=== PATIENT | male | born 1970 | race Caucasian/White ===

== ENCOUNTER → 2018-04-05 | Outpatient (CLI) | payer BC ==
--- NOTE | 2018-04-05 08:43 | CT ---
EXAMINATION TYPE: CT soft tissue neck w con DATE OF EXAM: 04/05/2018 COMPARISON: HISTORY: Lump in neck, right side CT DLP: 596.8 mGycm CONTRAST: CT scan of the neck is performed with IV Contrast, patient injected with 100 mL of Isovue 300. Contrast enhanced CT of the neck was performed from the skull base through the lung apices. AIRWAY: Lobulated soft tissue mass which extends from the base of the tongue to the right of midline and extends to the tip of the epiglottis. Site of origin is difficult to elucidate. Mass measures 3.8 x 2.4 x 2.8 cm. Tissue diagnosis is recommended to exclude malignancy. No additional masses identifi ed of the airway. SALIVARY GLANDS: The submandibular and parotid glands are free of mass or inflammatory process. THYROID GLAND: No nodules or masses seen. LYMPH NODES: Right sided internal jugular chain adenopathy measuring 5.0 x 2.9 x 2.2 cm. Right-sided posterior triangle adenopathy measuring 1.2 cm. LUNG APICES: No nodule or mass is seen. OTHER: Vascular structures are patent. No significant degenerative change of the cervical spine. N o abscess seen. IMPRESSION: 1.Lobulated soft tissue mass which extends from the base of the tongue to the right of midline and ex tends to the tip of the epiglottis. Site of origin is difficult to elucidate. Tissue diagnosis is rec ommended to exclude malignancy. Associated adenopathy as discussed.
--- NOTE | 2018-04-05 09:40 | FL ---
"EXAMINATION TYPE: FL barium swallow DATE OF EXAM: 04/05/2018 CLINICAL HISTORY: Dysphagia over the last year, palpable lump right neck over last 2-3 months. TECHNIQUE: A double contrast esophagram is performed utilizing air and barium. A total of 29 second s of fluoroscopic time was utilized during procedure. 56 spot images are saved during procedure. COMPARISON: Same day CT neck study performed earlier today. FINDINGS: Corresponding to CT there is large mucosal mass filling the vallecula affecting swallows bu t not causing obstruction at roughly C3-C4 level. No suspicious stricture or diverticulum is present. No hiatal hernia is seen. Mucosal lesion superior to the pyriform sinuses confirmed on 2 views. No g astroesophageal reflux is evident. IMPRESSION: Large hypopharyngeal mass filling posterior aspect of the valleculae on top of epiglottis . Correlating with CT there is adjacent right neck adenopathy. Primary throat cancer strongly suspec samy. Advise ENT referral. A Yellow level critical message alert has been initiated for Raysa Pineda MD via the [employer] 0 | Critical Results System on 04/05/2018 9:37 AM. This message alert has been sent to Raysa Pineda MD via the preferences provided by the clinician for the receipt of Radiology Critical Findings. Ms ssage ID [id number]."
== END ==
LOC: RADCTMAIN 07:29
PROVIDERS: ATTEND Internal Medicine
DX: R22.1 Localized swelling, mass and lump, neck (principal); R59.0 Localized enlarged lymph nodes; K92.89 Other specified diseases of the digestive system
CPT/HCPCS: 74220; 70491; Q9967

== ENCOUNTER → 2018-05-13 | Outpatient (CLI) | payer BC ==
--- NOTE | 2018-05-13 18:28 | PE ---
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 TECHNIQUE: Following the intravenous administration of 14.822 mCi of F-18 FDG, whole body images are performed from the skull base to the midthigh. Images are reviewed on the computer in the coronal, axial, and sagittal planes. Reconstructed rotating images are created on independent workstation and reviewed on the computer. A noncontrast CT is performed in conjunction with the PET scan. Dedicate d head and neck PET/CT imaging is also performed. SCAN: Initial Scan FINDINGS: SKULL BASE AND NECK: Corresponding to recent CT there is heterogeneous right vallecular mass measuri ng 2.9 x 2.8 cm on axial image 51 with hypermetabolic uptake, max SUV is 10.57. There is persistent heterogeneous abnormal right submandibular lymph node causing anterior deviation of right submandibular gland extending inferiorly to level of the inferior aspect of hyoid bone measu ring 3.4 x 3.4 cm axial image 52 with max SUV of 12.14. There is additional suspicious right posterio r cervical triangle 1.6 x 1.2 cm lymph node axial image 53 with max SUV 6.65. No suspicious hypermetabolic left-sided adenopathy is seen. CHEST, MEDIASTINUM, AND HILAR REGION: There is interval placement of tracheostomy tube mild surroundi ng uptake presumed related to recent surgical procedure. No suspicious hypermetabolic uptake in the t horax is present. ABDOMEN AND PELVIS: No suspicious hypermetabolic uptake in the abdomen or pelvis is seen. OSSEOUS STRUCTURES: No suspicious hypermetabolic uptake is seen. OTHER CT: Right-sided pelvic phleboliths incidentally noted. Mild facet arthropathy lower lumbar spin e is seen. A 1.0 cm low dense lesion inferior right hepatic lobe axial image 140 favors simple thin-w alled cyst. IMPRESSION: Malignant neoplasm slight right aspect of vallecula with right neck adenopathy redemonstr ated. No distal metastatic disease to the thorax abdomen or pelvis is identified.
== END | disposition home or self-care (01) ==
LOC: RADPETMAIN 15:28
PROVIDERS: ATTEND Radiology Radiation Oncology
DX: C10.0 Malignant neoplasm of vallecula (principal); C09.0 Malignant neoplasm of tonsillar fossa; R59.0 Localized enlarged lymph nodes
CPT/HCPCS: 78815; A9552

== ENCOUNTER 2018-07-16 14:07 | Inpatient (IN) | payer BC ==
[2018-07-16] MEDS ORDERED: LIDOCAINE VISCOUS 2% 15 ML CUP MUCOUS MEM ONE (14:41)
[2018-07-16] MEDS ORDERED: SODIUM CHLORIDE 0.9% 1,000 ML IV ONE ×2 (14:42)
--- NOTE | 2018-07-16 14:44 | ED ---
General Adult HPI - General Chief complaint: Recheck/Abnormal Lab/Rx Stated complaint: Dehydrated Time Seen by Provider: 07/16/18 14:21 Source: patient, RN notes reviewed, old records reviewed Mode of arrival: ambulatory Limitations: no limitations - History of Present Illness Initial comments: 47-year-old male history of head and neck cancer presenting for evaluation of dehydration and pain with swallowing. Patient is status post chemoradiation, most recent chemotherapy was 9 days ago. He states that he had elevated temperature at home and 100.2. This was the highest temperature reported. Patient denies cough or dyspnea. Denies abdominal pain nausea vomiting or diarrhea. Denies dysuria. States he is not vomiting but has significant pain with swallowing. His been unable to tolerate significant amount of oral hydration. Patient's oncologist did call ahead to indicate that the patient likely needed some IV hydration. - Related Data Home Medications Medication Instructions Recorded Confirmed No Known Home Medications 07/16/18 07/16/18 Allergies Allergy/AdvReac Type Severity Reaction Status Date / Time No Known Allergies Allergy Verified 07/16/18 15:21 Review of Systems ROS Statement: Those systems with pertinent positive or pertinent negative responses have been documented in the HPI. ROS Other: All systems not noted in ROS Statement are negative. 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 Absent: tenderness, meningismus Respiratory exam: Present: normal lung sounds bilaterally. Absent: respiratory distress, wheezes, rhonchi Cardiovascular Exam: Present: regular rate, normal rhythm GI/Abdominal exam: Present: soft. Absent: distended, tenderness, guarding Extremities exam: Present: normal inspection, normal capillary refill. Absent: pedal edema Neurological exam: Present: alert, oriented X3, CN II-XII intact. Absent: motor sensory deficit Psychiatric exam: Present: normal affect, normal mood Skin exam: Present: warm, dry, intact Course Vital Signs 07/16/18 14:19 Temperature 98.7 F Pulse Rate 85 Respiratory 18 Rate Blood Pressure 96/66 O2 Sat by Pulse 97 Oximetry Medical Decision Making - Medical Decision Making Patient presenting with dehydration, pain with swallowing, history of head and neck cancer status post chemo and radiation. Patient's is found to be pancytopenic, anemic hemoglobin 10.5, thrombocytopenic, white count is 1.0, absolute neutrophil count is pending. Patient does report fever, 100.2. Urinalysis is pending, patient has been unable to give a urinalysis. Blood culture pending. Chest x-ray negative for focal pneumonia. Patient is started on cefepime and vancomycin, neutropenic fever. He will be admitted awaiting culture results. Case discussed with patient's oncologist Dr. Stoll, and admitting physician Dr. Burris. - Lab Data Result diagrams: 07/16/18 14:15 07/16/18 14:15 Lab Results 07/16/18 07/16/18 07/16/18 Range/Units 14:15 14:15 16:00 WBC 1.0 L* (3.8-10.6) k/uL RBC 3.32 L (4.30-5.90) m/uL Hgb 10.5 L (13.0-17.5) gm/dL Hct 27.7 L (39.0-53.0) % MCV 83.4 (80.0-100.0) fL MCH 31.7 (25.0-35.0) pg MCHC 38.0 H (31.0-37.0) g/dL RDW 22.0 H (11.5-15.5) % Plt Count 59 L (150-450) k/uL Differential Comment Manual Slide Review Performed Hyperchromasia Slight Poikilocytosis Moderate Anisocytosis Moderate Microcytosis Slight Sodium 140 (137-145) mmol/L Potassium 4.4 (3.5-5.1) mmol/L Chloride 105 (98-107) mmol/L Carbon Dioxide 21 L (22-30) mmol/L Anion Gap 14 mmol/L BUN 32 H (9-20) mg/dL Creatinine 0.84 (0.66-1.25) mg/dL Est GFR (CKD-EPI)AfAm >90 (>60 ml/min/1.73 sqM) Est GFR (CKD-EPI)NonAf >90 (>60 ml/min/1.73 sqM) Glucose 93 (74-99) mg/dL Plasma Lactic Acid Jaylen 0.7 (0.7-2.0) mmol/L Calcium 8.9 (8.4-10.2) mg/dL Total Bilirubin 1.2 (0.2-1.3) mg/dL AST 16 L (17-59) U/L ALT 25 (21-72) U/L Alkaline Phosphatase 70 (38-126) U/L Total Protein 6.1 L (6.3-8.2) g/dL Albumin 3.5 (3.5-5.0) g/dL Influenza Type A RNA (Not Detectd) Influenza Type B (PCR) (Not Detectd) 07/16/18 Range/Units 16:04 WBC (3.8-10.6) k/uL RBC (4.30-5.90) m/uL Hgb (13.0-17.5) gm/dL Hct (39.0-53.0) % MCV (80.0-100.0) fL MCH (25.0-35.0) pg MCHC (31.0-37.0) g/dL RDW (11.5-15.5) % Plt Count (150-450) k/uL Differential Comment Manual Slide Review Hyperchromasia Poikilocytosis Anisocytosis Microcytosis Sodium (137-145) mmol/L Potassium (3.5-5.1) mmol/L Chloride (98-107) mmol/L Carbon Dioxide (22-30) mmol/L Anion Gap mmol/L BUN (9-20) mg/dL Creatinine (0.66-1.25) mg/dL Est GFR (CKD-EPI)AfAm (>60 ml/min/1.73 sqM) Est GFR (CKD-EPI)NonAf (>60 ml/min/1.73 sqM) Glucose (74-99) mg/dL Plasma Lactic Acid Jaylen (0.7-2.0) mmol/L Calcium (8.4-10.2) mg/dL Total Bilirubin (0.2-1.3) mg/dL AST (17-59) U/L ALT (21-72) U/L Alkaline Phosphatase (38-126) U/L Total Protein (6.3-8.2) g/dL Albumin (3.5-5.0) g/dL Influenza Type A RNA Not Detected (Not Detectd) Influenza Type B (PCR) Not Detected (Not Detectd) Disposition Clinical Impression: Neutropenic fever, Dehydration Disposition: ADMITTED IP TO THIS [facility] Condition: Stable Is patient prescribed a controlled substance at d/c from ED?: No Referrals: Kalyan Kim MD [Primary Care Provider] - 1-2 days Decision to Admit Reason: Admit from EC Decision Date: 07/16/18 Decision Time: 16:56
[2018-07-16 15:23] LABS: Anisocytosis Moderate; HCT 27.7 % (39.0-53.0); HGB 10.5 gm/dL (13.0-17.5); Hyperchromasia Slight; MCH 31.7 pg (25.0-35.0); MCV 83.4 fL (80.0-100.0); Mean Platelet Volume 10.2; Microcytosis Slight; Poikilocytosis Moderate; RBC 3.32 m/uL (4.30-5.90)
[2018-07-16 15:26] LABS: Platelet Count 59 k/uL (150-450)
[2018-07-16 15:28] LABS: ALT 25 U/L (21-72); AST 16 U/L (17-59); Albumin 3.5 g/dL (3.5-5.0); Alkaline Phosphatase 70 U/L (38-126); Anion Gap 14 mmol/L; Blood Urea Nitrogen 32 mg/dL (9-20); Calcium 8.9 mg/dL (8.4-10.2); Carbon Dioxide 21 mmol/L (22-30); Chloride 105 mmol/L (98-107); Glucose 93 mg/dL (74-99); Potassium 4.4 mmol/L (3.5-5.1); Sodium 140 mmol/L (137-145); Total Bilirubin 1.2 mg/dL (0.2-1.3); Total Protein 6.1 g/dL (6.3-8.2)
[2018-07-16] MEDS ORDERED: VANCOMYCIN IV PER PHARMACY 1 EACH MISC MISCELLANE PRN (15:58)
[2018-07-16] MEDS ORDERED: CEFEPIME 2 GM in SODIUM CHLORIDE 0.9% 100 ML IVPB STA (16:00)
--- NOTE | 2018-07-16 16:00 | XR ---
EXAMINATION TYPE: XR chest 2V DATE OF EXAM: 07/16/2018 COMPARISON: NONE HISTORY: Fever TECHNIQUE: Frontal and lateral views of the chest are obtained. FINDINGS: There is no focal air space opacity, pleural effusion, or pneumothorax seen. The cardiac silhouette size is within normal limits. The osseous structures are intact. Tracheostomy tube is wi thin the trachea. IMPRESSION: No acute cardiopulmonary process.
[2018-07-16] MEDS ORDERED: VANCOMYCIN 1,750 MG in SODIUM CHLORIDE 0.9% 500 ML 500 ML IVPB ONE (16:30)
[2018-07-16] MEDS ORDERED: NALOXONE 0.4 MG/ML 1 ML VIAL IV PRN (16:51)
[2018-07-16] MEDS ORDERED: ONDANSETRON 4 MG/2 ML VIAL IVP PRN (16:51)
[2018-07-16] MEDS ORDERED: ACETAMINOPHEN TAB 325 MG TAB PO PRN (16:51)
[2018-07-16] MEDS: SODIUM CHLORIDE 0.9% 1,000 ML IV SCH (17:10)
[2018-07-16] MEDS: HYDROmorphone 0.5 MG/0.5 ML SYRINGE IVP PRN ×2 (18:23→21:27)
[2018-07-16] MEDS: FILGRASTIM-SNDZ 480 MCG/0.8 ML SYRINGE SQ SCH (22:40)
[2018-07-16] MEDS: MAG HYDROX/AL HYDROX/SIMETH 30 ML, LIDOCAINE VISCOUS 30 ML, diphenhydrAMINE ELIXIR 75 M... PO SCH ×4 (23:00)
[2018-07-16 23:44] LABS: Appearance,Urine Clear (Clear); Bilirubin,Urine Negative (Negative); Blood,Urine Negative (Negative); Color,Urine Yellow; Glucose,Urine (UA) Negative (Negative); Ketones,Urine 4+ (Negative); Leukocyte Esterase,Urine Negative (Negative); Nitrite,Urine Negative (Negative); PH, Urine 5.5 (5.0-8.0); Protein,Urine Trace (Negative); Specific Gravity,Urine 1.027 (1.001-1.035); Urobilinogen,Urine <2.0 mg/dL (<2.0)
[2018-07-17] MEDS: CEFEPIME 2 GM in SODIUM CHLORIDE 0.9% 100 ML IVPB SCH ×3 (00:24→15:59)
[2018-07-17] MEDS: HYDROmorphone 0.5 MG/0.5 ML SYRINGE IVP PRN ×8 (00:24→21:42)
[2018-07-17] MEDS: VANCOMYCIN 1,500 MG in SODIUM CHLORIDE 0.9% 250 ML IVPB SCH ×3 (02:49→18:51)
[2018-07-17] MEDS: SODIUM CHLORIDE 0.9% 1,000 ML IV SCH ×2 (07:53→17:06)
[2018-07-17] MEDS: MAG HYDROX/AL HYDROX/SIMETH 30 ML, LIDOCAINE VISCOUS 30 ML, diphenhydrAMINE ELIXIR 75 M... PO SCH ×13 (10:28→21:43)
--- NOTE | 2018-07-17 13:45 | P.HPIM ---
History of Present Illness H&P Date: 07/17/18 Chief Complaint: fever 1 day, chemotherapy This is a pleasant 47-year-old gentleman patient of Dr. 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 Stoll. He didn't have any tongue resection for this. however he underwent cisplatin started May 25, and has completed chemotherapy. He goes every , his last chemotherapy was 06/28/2018. He currently is on radiation treatment, with Dr. Zamora, last treatment was 06/11/2018. His initial tongue cancer was also noted to be positive in the lymph node based on CT, he comes in now with fever for one day 100.2 in er, cough of one day, the patient has a trach collar that is not blistered and does not have any new rashes, no recent foreign travels, no sick contacts at home. he denies any GI complaints he was last seen in the office 08/02/2017, diagnosed to have BPH without lower tract symptomatology, hyper tension, hyperlipidemia, patient is not on any home medications. He does have mucus production trace trach collar and some cough, clear white sputum. Emergency room laboratory showed WBC count of 1.0, platelet count of 59, creatinine of 0.84, normal liver function tests, albumin and protein is a little bit on the lower side, lactic acid off 0.7, urinalysis normal except for ketones, and dehydration. influenza test was negative chest x-ray shows no acute pulmonary disease no active infiltrates, patient was admitted for neutropenic fever with WBC count of 1.0, no absolute neutrophil count for review, consult was made with Dr. Stoll, and Dr. Quezada for pancytopenia with neutropenic fever, main source unknown, most likely respiratory tract, we're going to obtain sputum cultures from the aspirate to deep suctioning, he started on vancomycin and cefepime. Inspection of the skin fails to reveal any rashes or open sores including the neck collar Review of Systems Constitutional: Reports as per HPI, Reports anorexia, Reports chills, Reports fever, Reports lethargy, Reports weight loss, Denies chronic headaches, Denies chronic pain, Denies daytime sleepiness, Denies fatigue, Denies malaise, Denies night sweats, Denies poor appetite, Denies sweats, Denies weakness, Denies weight gain Eyes: bilateral as per HPI Ears, nose, mouth and throat: Reports as per HPI, Denies ant. neck pain, Denies bleeding gums, Denies dental pain, Denies dysphagia, Denies epistaxis, Denies headache, Denies hoarseness, Denies mouth pain, Denies nasal congestion, Denies nasal discharge, Denies neck fullness/pressure, Denies neck lump, Denies nose pain, Denies odynophagia, Denies post-nasal drip, Denies sinus pain, Denies sinus pressure, Denies swelling in mouth, Denies swelling in throat, Denies sore throat, Denies vertigo Cardiovascular: Reports as per HPI, Denies chest pain, Denies claudication, Denies decreased exercise tolerance, Denies dyspnea on exertion, Denies edema, Denies high blood pressure, Denies irregular heart beat, Denies leg edema, Denies lightheadedness, Denies orthopnea, Denies palpitations, Denies paroxysmal nocturnal dyspnea, Denies phlebitis, Denies rapid heart beat, Denies shortness of breath, Denies syncope Respiratory: Reports cough, Reports cough with sputum, Denies as per HPI, Denies congestion, Denies dyspnea, Denies excessive sputum, Denies hemoptysis, Denies home oxygen, Denies pain, Denies pain on inspiration, Denies pleurisy, Denies respiratory infections, Denies sleep apnea, Denies snoring, Denies wheezing Gastrointestinal: Denies as per HPI, Denies abdominal pain, Denies belching, Denies bloating, Denies BRBPR, Denies change in bowel habits, Denies coffee ground emesis, Denies constipation, Denies diarrhea, Denies dyspepsia, Denies early satiety, Denies heartburn, Denies hematemesis, Denies hematochezia, Denies indigestion, Denies jaundice, Denies loss of appetite, Denies melena, Denies nausea, Denies vomiting Genitourinary: Reports as per HPI, Reports decreased libido, Reports erectile dysfunction, Reports polyuria, Reports testicular lump, Denies discharge, Denies dysuria, Denies flank pain Musculoskeletal: Denies atrophy, Denies fractures, Denies frequent falls, Denies muscle cramps, Denies muscle weakness, Denies neck stiffness Integumentary: Denies foot/leg ulcers, Denies rash, Denies sores, Denies unusual bruising, Denies wounds Neurological: Denies change in mentation, Denies gait dysfunction, Denies headaches, Denies loss of vision, Denies syncope, Denies weakness Psychiatric: Denies change in appetite, Denies confusion, Denies disorientation, Denies hypersomnia, Denies insomnia, Denies irritability, Denies sleep disturbances Endocrine: Denies cold intolerance, Denies excessive sweating, Denies fatigue, Denies flushing, Denies heat intolerance, Denies recent glucocorticoid use, Denies weight change Hematologic/Lymphatic: Reports as per HPI, Denies easy bleeding, Denies easy bruising, Denies lymphadenopathy, Denies lymphedema, Denies thrombophilia Allergic/Immunologic: Denies as per HPI, Denies allergic rhinitis, Denies anaphylaxis, Denies angioedema, Denies gluten intolerance, Denies persistent infections, Denies seasonal allergies, Denies urticaria, Denies wheezing Past Medical History Past Medical History: Cancer, Hyperlipidemia, Hypertension, Prostate Disorder Additional Past Medical History / Comment(s): squamous cell carcinoma base of tongue dx 06/22/18- last chemo 07-12-18, patient has trach that was placed 04-25-18 History of Any Multi-Drug Resistant Organisms: None Reported Additional Past Surgical History / Comment(s): tracheostomy Past Psychological History: No Psychological Hx Reported Smoking Status: Former smoker Past Alcohol Use History: Rare Past Drug Use History: None Reported - Past Family History Mother Family Medical History: Cancer (breast) Father Family Medical History: No Reported History Brother(s) Family Medical History: No Reported History Sister(s) Family Medical History: Cancer (Melanoma) Daughter(s) Family Medical History: No Reported History Son(s) Family Medical History: No Reported History Medications and Allergies Home Medications Medication Instructions Recorded Confirmed Type No Known Home Medications 07/16/18 07/16/18 History Allergies Allergy/AdvReac Type Severity Reaction Status Date / Time No Known Allergies Allergy Verified 07/16/18 15:21 Physical Exam Vitals: Vital Signs Temp Pulse Pulse Resp BP BP Pulse Ox 07/17/18 12:12 100 F H 106 H 17 117/70 95 07/17/18 06:08 99.3 F 108 H 16 115/71 92 L 07/16/18 21:36 98.9 F 81 16 123/78 98 07/16/18 20:41 97 07/16/18 17:53 98.2 F 95 16 124/80 100 07/16/18 17:11 86 20 121/70 100 07/16/18 14:19 98.7 F 85 18 96/66 97 Intake and Output 07/16/18 07/17/18 07/17/18 22:59 06:59 14:59 Intake Total 900 Output Total 600 600 Balance -600 -600 900 Intake: Intake, IV Titration 900 Amount Cefepime 2 gm In Sodium 100 Chloride 0.9% 100 ml @ 200 mls/hr IVPB Q8HR ANA MARIA Rx#:[id number] Sodium Chloride 0.9% 1, 550 000 ml @ 100 mls/hr IV . Q10H ANA MARIA Rx#:[id number] Vancomycin 1,500 mg In 250 Sodium Chloride 0.9% 250 ml @ 125 mls/hr IVPB Q8H ANA MARIA Rx#:[id number] Output: Urine 600 600 Other: Voiding Method Urinal # Voids 1 Weight 90.718 kg - Constitutional General appearance: average body habitus, cooperative, no acute distress - EENT Eyes: anicteric sclerae, EOMI, PERRLA, dentition normal, normal appearance ENT: hearing grossly normal, normal oropharynx - Neck Neck: normal ROM - Respiratory Respiratory: bilateral: CTA, negative: diminished, dullness, rales - Cardiovascular Rhythm: regular Heart sounds: normal: S1, S2 Abnormal Heart Sounds: no systolic murmur, no diastolic murmur, no rub, no S3 Gallop, no S4 Gallop, no click, no other - Gastrointestinal General gastrointestinal: normal bowel sounds, soft - Integumentary rubor noted neck line where trach collar is located, trach site normal in location - Neurologic Neurologic: CNII-XII intact - Musculoskeletal Musculoskeletal: gait normal, generalized weakness, strength equal bilaterally - Psychiatric Psychiatric: A&O x's 3, appropriate affect, intact judgment & insight Results CBC & Chem 7: 07/16/18 14:15 07/16/18 14:15 Labs: Abnormal Lab Results - Last 24 Hours (Table) 07/16/18 07/16/18 07/16/18 Range/Units 14:15 14:15 23:23 WBC 1.0 L* (3.8-10.6) k/uL RBC 3.32 L (4.30-5.90) m/uL Hgb 10.5 L (13.0-17.5) gm/dL Hct 27.7 L (39.0-53.0) % MCHC 38.0 H (31.0-37.0) g/dL RDW 22.0 H (11.5-15.5) % Plt Count 59 L (150-450) k/uL Carbon Dioxide 21 L (22-30) mmol/L BUN 32 H (9-20) mg/dL AST 16 L (17-59) U/L Total Protein 6.1 L (6.3-8.2) g/dL Urine Protein Trace H (Negative) Urine Ketones 4+ H (Negative) Microbiology - Last 24 Hours (Table) 07/16/18 23:23 Urine Culture - Preliminary Urine,Clean Catch Laboratory Results WBC 1.0 k/uL (3.8-10.6) L* 07/16/18 14:15 RBC 3.32 m/uL (4.30-5.90) L 07/16/18 14:15 Hgb 10.5 gm/dL (13.0-17.5) L 07/16/18 14:15 Hct 27.7 % (39.0-53.0) L 07/16/18 14:15 MCV 83.4 fL (80.0-100.0) 07/16/18 14:15 MCH 31.7 pg (25.0-35.0) 07/16/18 14:15 MCHC 38.0 g/dL (31.0-37.0) H 07/16/18 14:15 RDW 22.0 % (11.5-15.5) H 07/16/18 14:15 Plt Count 59 k/uL (150-450) L 07/16/18 14:15 Differential Comment 07/16/18 14:15 Manual Slide Review Performed 07/16/18 14:15 Hyperchromasia Slight 07/16/18 14:15 Poikilocytosis Moderate 07/16/18 14:15 Anisocytosis Moderate 07/16/18 14:15 Microcytosis Slight 07/16/18 14:15 Sodium 140 mmol/L (137-145) 07/16/18 14:15 Potassium 4.4 mmol/L (3.5-5.1) 07/16/18 14:15 Chloride 105 mmol/L (98-107) 07/16/18 14:15 Carbon Dioxide 21 mmol/L (22-30) L 07/16/18 14:15 Anion Gap 14 mmol/L 07/16/18 14:15 BUN 32 mg/dL (9-20) H 07/16/18 14:15 Creatinine 0.84 mg/dL (0.66-1.25) 07/16/18 14:15 Est GFR (CKD-EPI)AfAm >90 (>60 ml/min/1.73 sqM) 07/16/18 14:15 Est GFR (CKD-EPI)NonAf >90 (>60 ml/min/1.73 sqM) 07/16/18 14:15 Glucose 93 mg/dL (74-99) 07/16/18 14:15 Plasma Lactic Acid Jaylen 0.7 mmol/L (0.7-2.0) 07/16/18 16:00 Calcium 8.9 mg/dL (8.4-10.2) 07/16/18 14:15 Total Bilirubin 1.2 mg/dL (0.2-1.3) 07/16/18 14:15 AST 16 U/L (17-59) L 07/16/18 14:15 ALT 25 U/L (21-72) 07/16/18 14:15 Alkaline Phosphatase 70 U/L (38-126) 07/16/18 14:15 Total Protein 6.1 g/dL (6.3-8.2) L 07/16/18 14:15 Albumin 3.5 g/dL (3.5-5.0) 07/16/18 14:15 Urine Color Yellow 07/16/18 23:23 Urine Appearance Clear (Clear) 07/16/18 23:23 Urine pH 5.5 (5.0-8.0) 07/16/18 23:23 Ur Specific [place] 1.027 (1.001-1.035) 07/16/18 23:23 Urine Protein Trace (Negative) H 07/16/18 23:23 Urine Glucose (UA) Negative (Negative) 07/16/18 23:23 Urine Ketones 4+ (Negative) H 07/16/18 23:23 Urine Blood Negative (Negative) 07/16/18 23:23 Urine Nitrite Negative (Negative) 07/16/18 23:23 Urine Bilirubin Negative (Negative) 07/16/18 23:23 Urine Urobilinogen <2.0 mg/dL (<2.0) 07/16/18 23:23 Ur Leukocyte Esterase Negative (Negative) 07/16/18 23:23 Influenza Type A RNA Not Detected (Not Detectd) 07/16/18 16:04 Influenza Type B (PCR) Not Detected (Not Detectd) 07/16/18 16:04 Thrombosis Risk Factor Assmnt - DVT/VTE Prophylaxis DVT/VTE Prophylaxis: Pharmacologic Prophylaxis ordered, Mechanical Prophylaxis ordered - Choose All That Apply Any of the Below Risk Factors Present?: Yes Each Factor Represents 1 point: Age 41-60 years, Sepsis (< 1month) Other Risk Factors: Yes Each Risk Factor Represents 2 Points: Malignancy Thrombosis Risk Factor Assessment Total Risk Factor Score: 4 Thrombosis Risk Factor Assessment Level: Moderate Risk Assessment and Plan Plan: 1. Neutropenic fever, known history of squamous cell carcinoma of the base of the tongue, recently completed chemotherapy as of 07/06/2018, patient is on vancomycin IV and cefepime, consult were made with Dr. Kohler and Dr. Quezada, sputum cultures to be obtained to tracheostomy specimen via suctioning,, blood cultures has been sent, influenza ANB negative by PCR, urinalysis negative 2. Squamous cell carcinoma at the base of the tongue, chemotherapy with cisplatin, completed 07/06/2018, [place] started 05/25/2018, Dr. Stoll 3. Pancytopenia with current platelet count of 59, hemoglobin of 10.5, WBC count of 1.0, continue to monitor her numbers, no evidence of bleeding 2. BPH without lower tract symptomatology 4. Dehydration with mild azotemia, unknown baseline, suspect acute renal insufficiency with ketonuria related to diminished oral intake 5. Hyperlipidemia not on any medication prior to admission 6. Hypertension, currently normotensive without medications, continue to monitor 7. GI prophylaxis Pepcid 8. DVT prophylaxis with Lovenox 40 mg every daily, monitor for platelets, this needs to be discontinued if there should count is under 50, no evidence of bleeding, moderate risk . Sepsis - Sepsis Sepsis Focused Exam #2 Capillary Refill: < 2 Seconds: Fingers, Toes Peripheral Pulses: Normal: Radial (R), Radial (L), Posterior Tibialis (R), Posterior Tibialis (L), Dorsalis Pedis (R), Dorsalis Pedis (L) Skin Color: Erythema (Neck collar) Respiratory Exam: normal lung sounds Cardiovascular Exam: regular rate
--- NOTE | 2018-07-17 14:15 | P.CONS ---
History of Present Illness - Reason for Consult Consult date: 07/17/18 Neutropenic fever - History of Present Illness This is a 47-year-old male patient under the care of of Dr. Stoll and Dr. 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 Patient was diagnosed in June of this year and has been on cisplatin from May 25 through July 06. He states he has now completed his course of chemotherapy. His last radiation treatment was on 06/11/2018. Tracheostomy was placed April this year. His temperature maximum was 100.2 an d cough. He does have difficulty swallowing and throat pain as well as concern for dehydration as he is not able to tolerate significant amount of oral fluids and came into the emergency center for evaluation. WBC 1, hemoglobin 10.5 and platelet count 59. Creatinine 0.84, albumin 3.5. Influenza testing was negative. Urinalysis was 4+ ketones, nitrate and leukoesterase negative. Chest x-ray showed no acute cardiopulmonary process. Patient was admitted to the [facility] floor for neutropenic fever. Dr. Stoll is also on consult. He is currently on cefepime and vancomycin. Blood, urine, sputum or status received. Review of Systems Constitutional: Reports anorexia, Reports chills, Reports fever, Reports lethargy, Reports poor appetite, Reports weight loss Ears, nose, mouth and throat: Reports odynophagia, Reports sore throat, Denies dental pain Cardiovascular: Denies dyspnea on exertion, Denies edema, Denies irregular heart beat, Denies leg edema, Denies syncope Respiratory: Reports cough, Denies congestion, Denies cough with sputum, Denies dyspnea, Denies excessive sputum, Denies hemoptysis, Denies home oxygen, Denies wheezing Gastrointestinal: Denies abdominal pain, Denies diarrhea, Denies nausea, Denies vomiting Genitourinary: Denies dysuria, Denies urinary retention Musculoskeletal: Denies frequent falls, Denies gait dysfunction Integumentary: Denies darkening of skin, Denies rash, Denies wounds Neurological: Denies aphasia, Denies change in mentation, Denies change in speech, Denies confusion, Denies gait dysfunction, Denies seizures Psychiatric: Denies anxiety, Denies depression Past Medical History Past Medical History: Cancer, Hyperlipidemia, Hypertension, Prostate Disorder Additional Past Medical History / Comment(s): squamous cell carcinoma base of tongue dx 06/22/18- last chemo 07-12-18, patient has trach that was placed 04-25-18 History of Any Multi-Drug Resistant Organisms: None Reported Additional Past Surgical History / Comment(s): tracheostomy Past Psychological History: No Psychological Hx Reported Smoking Status: Former smoker Past Alcohol Use History: Rare Additional Past Alcohol Use History / Comment(s): Patient recently quit smoking, no pets in the home. Past Drug Use History: None Reported - Past Family History Mother Family Medical History: Cancer (breast) Father Family Medical History: No Reported History Brother(s) Family Medical History: No Reported History Sister(s) Family Medical History: Cancer (Melanoma) Daughter(s) Family Medical History: No Reported History Son(s) Family Medical History: No Reported History Medications and Allergies Home Medications Medication Instructions Recorded Confirmed Type No Known Home Medications 07/16/18 07/16/18 History Allergies Allergy/AdvReac Type Severity Reaction Status Date / Time No Known Allergies Allergy Verified 07/16/18 15:21 Physical Exam Vitals: Vital Signs Temp Pulse Pulse Resp BP BP Pulse Ox 07/17/18 12:12 100 F H 106 H 17 117/70 95 07/17/18 06:08 99.3 F 108 H 16 115/71 92 L 07/16/18 21:36 98.9 F 81 16 123/78 98 07/16/18 20:41 97 07/16/18 17:53 98.2 F 95 16 124/80 100 07/16/18 17:11 86 20 121/70 100 07/16/18 14:19 98.7 F 85 18 96/66 97 Intake and Output 07/16/18 07/17/18 07/17/18 22:59 06:59 14:59 Intake Total 900 Output Total 600 600 Balance -600 -600 900 Intake: Intake, IV Titration 900 Amount Cefepime 2 gm In Sodium 100 Chloride 0.9% 100 ml @ 200 mls/hr IVPB Q8HR ANA MARIA Rx#:[id number] Sodium Chloride 0.9% 1, 550 000 ml @ 100 mls/hr IV . Q10H ANA MARIA Rx#:[id number] Vancomycin 1,500 mg In 250 Sodium Chloride 0.9% 250 ml @ 125 mls/hr IVPB Q8H ANA MARIA Rx#:[id number] Output: Urine 600 600 Other: Voiding Method Urinal # Voids 1 Weight 90.718 kg Gen: This is a 47-year-old male. He is resting in bed. Noted cough with white sputum production from trach. HEENT: Head is atraumatic, normocephalic. Pupils equal, round. Sclerae is anicteric. NECK: Supple. Tracheotomy and trach collar in place. LUNGS: Clear to auscultation. No wheezes or rhonchi. No intercostal retractions. HEART: Regular rate and rhythm. No murmur. ABDOMEN: Soft. Bowel sounds are present. No masses. No tenderness. EXTREMITIES: No pedal edema. No calf tenderness. NEUROLOGICAL: Patient is awake, alert and oriented x3. Cranial nerves 2 through 12 are grossly intact. Results Results: Laboratory Results WBC 1.0 k/uL (3.8-10.6) L* 07/16/18 14:15 RBC 3.32 m/uL (4.30-5.90) L 07/16/18 14:15 Hgb 10.5 gm/dL (13.0-17.5) L 07/16/18 14:15 Hct 27.7 % (39.0-53.0) L 07/16/18 14:15 MCV 83.4 fL (80.0-100.0) 07/16/18 14:15 MCH 31.7 pg (25.0-35.0) 07/16/18 14:15 MCHC 38.0 g/dL (31.0-37.0) H 07/16/18 14:15 RDW 22.0 % (11.5-15.5) H 07/16/18 14:15 Plt Count 59 k/uL (150-450) L 07/16/18 14:15 Differential Comment 07/16/18 14:15 Manual Slide Review Performed 07/16/18 14:15 Hyperchromasia Slight 07/16/18 14:15 Poikilocytosis Moderate 07/16/18 14:15 Anisocytosis Moderate 07/16/18 14:15 Microcytosis Slight 07/16/18 14:15 Sodium 140 mmol/L (137-145) 07/16/18 14:15 Potassium 4.4 mmol/L (3.5-5.1) 07/16/18 14:15 Chloride 105 mmol/L (98-107) 07/16/18 14:15 Carbon Dioxide 21 mmol/L (22-30) L 07/16/18 14:15 Anion Gap 14 mmol/L 07/16/18 14:15 BUN 32 mg/dL (9-20) H 07/16/18 14:15 Creatinine 0.84 mg/dL (0.66-1.25) 07/16/18 14:15 Est GFR (CKD-EPI)AfAm >90 (>60 ml/min/1.73 sqM) 07/16/18 14:15 Est GFR (CKD-EPI)NonAf >90 (>60 ml/min/1.73 sqM) 07/16/18 14:15 Glucose 93 mg/dL (74-99) 07/16/18 14:15 Plasma Lactic Acid Jaylen 0.7 mmol/L (0.7-2.0) 07/16/18 16:00 Calcium 8.9 mg/dL (8.4-10.2) 07/16/18 14:15 Total Bilirubin 1.2 mg/dL (0.2-1.3) 07/16/18 14:15 AST 16 U/L (17-59) L 07/16/18 14:15 ALT 25 U/L (21-72) 07/16/18 14:15 Alkaline Phosphatase 70 U/L (38-126) 07/16/18 14:15 Total Protein 6.1 g/dL (6.3-8.2) L 07/16/18 14:15 Albumin 3.5 g/dL (3.5-5.0) 07/16/18 14:15 Urine Color Yellow 07/16/18 23:23 Urine Appearance Clear (Clear) 07/16/18 23:23 Urine pH 5.5 (5.0-8.0) 07/16/18 23:23 Ur Specific [place] 1.027 (1.001-1.035) 07/16/18 23:23 Urine Protein Trace (Negative) H 07/16/18 23:23 Urine Glucose (UA) Negative (Negative) 07/16/18 23:23 Urine Ketones 4+ (Negative) H 07/16/18 23:23 Urine Blood Negative (Negative) 07/16/18 23:23 Urine Nitrite Negative (Negative) 07/16/18 23:23 Urine Bilirubin Negative (Negative) 07/16/18 23:23 Urine Urobilinogen <2.0 mg/dL (<2.0) 07/16/18 23:23 Ur Leukocyte Esterase Negative (Negative) 07/16/18 23:23 Influenza Type A RNA Not Detected (Not Detectd) 07/16/18 16:04 Influenza Type B (PCR) Not Detected (Not Detectd) 07/16/18 16:04 CBC & Chem 7: 07/16/18 14:15 07/18/18 08:49 Labs: Abnormal Lab Results - Last 24 Hours (Table) 07/16/18 07/16/18 07/16/18 Range/Units 14:15 14:15 23:23 WBC 1.0 L* (3.8-10.6) k/uL RBC 3.32 L (4.30-5.90) m/uL Hgb 10.5 L (13.0-17.5) gm/dL Hct 27.7 L (39.0-53.0) % MCHC 38.0 H (31.0-37.0) g/dL RDW 22.0 H (11.5-15.5) % Plt Count 59 L (150-450) k/uL Carbon Dioxide 21 L (22-30) mmol/L BUN 32 H (9-20) mg/dL AST 16 L (17-59) U/L Total Protein 6.1 L (6.3-8.2) g/dL Urine Protein Trace H (Negative) Urine Ketones 4+ H (Negative) Microbiology - Last 24 Hours (Table) 07/16/18 23:23 Urine Culture - Preliminary Urine,Clean Catch Assessment and Plan Plan: This is a 47-year-old male who presents to the hospital with dehydration and have neutropenic fever and pancytopenia with oral mucositis. Patient is currently on cefepime and vancomycin which will be continued. Antiviral and antifungal agents added. Blood, sputum and urine cultures arm progress. Continue supportive care. Further recommendations as patient progresses. The above dictated assessment and findings were discussed with Dr. Quezada. The impression and plan of care have been directed as dictated. Shellie Asif nurse practitioner acting as scribe for Dr. Quezada.
[2018-07-17] MEDS ORDERED: DOXEPIN 25 MG CAP PO PRN (17:11)
[2018-07-17] MEDS ORDERED: DEXAMETHASONE ORAL 4 MG/ML VIAL PO PRN (17:17)
[2018-07-17] MEDS: LORATADINE 10 MG TAB PO SCH (17:37)
[2018-07-17] MEDS: FLUCONAZOLE IN NACL,ISO-OSM 200 MG in SALINE 1 100ML.BAG IVPB SCH (17:37)
--- NOTE | 2018-07-17 17:46 | P.CONS ---
History of Present Illness - Reason for Consult Consult date: 07/17/18 Head and Neck cancer on Chemo Requesting physician: Kayode Fernandez - Chief Complaint inability to eat - History of Present Illness Patient of Dr. Thurston with diagnosis of Squamous Cell Carcinoma of the head and neck, he is status post 6 weeks of concurrent radiation and chemotherapy. He has been struggling with PO intake secondary to the oral mucocytis. Many treatments outpatient have been offered and attempted although he has not remained adherent to many secondary to tastes and pain. Mild low grade fevers and neutropenia. He has been started on antibiotics, antifungals and antivirals. As well as pain managment and cultures are pending. Infectious disease is following. Review of Systems A 14 point review of system assessed and completed and all negative except HPI Past Medical History Past Medical History: Cancer, Hyperlipidemia, Hypertension, Prostate Disorder Additional Past Medical History / Comment(s): squamous cell carcinoma base of tongue dx 06/22/18- last chemo 07-12-18, patient has trach that was placed 04-25-18 History of Any Multi-Drug Resistant Organisms: None Reported Additional Past Surgical History / Comment(s): tracheostomy Past Psychological History: No Psychological Hx Reported Smoking Status: Former smoker Past Alcohol Use History: Rare Additional Past Alcohol Use History / Comment(s): Patient recently quit smoking, no pets in the home. Past Drug Use History: None Reported - Past Family History Mother Family Medical History: Cancer (breast) Father Family Medical History: No Reported History Brother(s) Family Medical History: No Reported History Sister(s) Family Medical History: Cancer (Melanoma) Daughter(s) Family Medical History: No Reported History Son(s) Family Medical History: No Reported History Medications and Allergies Home Medications Medication Instructions Recorded Confirmed Type No Known Home Medications 07/16/18 07/16/18 History Allergies Allergy/AdvReac Type Severity Reaction Status Date / Time No Known Allergies Allergy Verified 07/16/18 15:21 Physical Exam Vitals: Vital Signs Temp Pulse Resp BP Pulse Ox 07/17/18 12:12 100 F H 106 H 17 117/70 95 07/17/18 06:08 99.3 F 108 H 16 115/71 92 L 07/16/18 21:36 98.9 F 81 16 123/78 98 07/16/18 20:41 97 07/16/18 17:53 98.2 F 95 16 124/80 100 Intake and Output 07/17/18 07/17/18 07/17/18 06:59 14:59 22:59 Intake Total 900 Output Total 600 Balance -600 900 Intake: Intake, IV Titration 900 Amount Cefepime 2 gm In Sodium 100 Chloride 0.9% 100 ml @ 200 mls/hr IVPB Q8HR [facility] Rx#:[id number] Sodium Chloride 0.9% 1, 550 000 ml @ 100 mls/hr IV . Q10H [facility] Rx#:[id number] Vancomycin 1,500 mg In 250 Sodium Chloride 0.9% 250 ml @ 125 mls/hr IVPB Q8H [facility] Rx#:[id number] Output: Urine 600 Other: Voiding Method Urinal # Voids 1 Weight 90.718 kg Gen: Alert and oriented, NAD Head NC, NT Mouth: Mucocytitis, canker sores, erythema, component thrush, edema. Neck: Erythema skin outside from radiation, no peeling or open areas to outside area. Trach Lung: CTA Bilatreral No increased effort Heart: RRR, S1s2 Abdomen: Soft, ND, NT Extremities: No edema, Pedal Pulses palpable Results CBC & Chem 7: 07/16/18 14:15 07/16/18 14:15 Labs: Abnormal Lab Results - Last 24 Hours (Table) 07/16/18 Range/Units 23:23 Urine Protein Trace H (Negative) Urine Ketones 4+ H (Negative) Microbiology - Last 24 Hours (Table) 07/16/18 23:23 Urine Culture - Preliminary Urine,Clean Catch Assessment and Plan Plan: Assessment and Rec: 1. Severe Mucocytitis related to treatment from Chemotherapy and Radiation - Failed Oral Rinses and PO Dex as outpatient although did not adhere to them as directed for taste - Antiviral and Antifungals per Infectious disease - PO Doxepin, crush and mix in water rinse and spit/swallow at hs 2. Pancytopenia Secondary to treatment with chemo and radiation - Zarxio 480 sub cut daily for immune support - Monitor daily CBC with Differential - Supportive Transfusions if needed - Antibiotics per Dr. Quezada, ID 3. Squamous Cell Carcinoma of Head and Neck - Status Post 6 weeks of weekly Cisplatin concurrent radiation Plan: - Continue aggressive supportive care - Allow count recovery and healing of oral pharynx and consumption of po intake - Re-education to patient - Discussed case with Dr. Quezada Physician Attest: I have completed the full history and physical and agree with above dictation by Keara Richards, I have developed the completed impression and plan, above dictated as a scribe.
[2018-07-17] MEDS: valACYclovir 500 MG TAB PO SCH (21:42)
[2018-07-17] MEDS: FILGRASTIM-SNDZ 480 MCG/0.8 ML SYRINGE SQ SCH (21:42)
--- NOTE | 2018-07-17 21:54 | P.CON ---
Consult Note - . Consult date: 07/17/18 Assessment/Plan:: This is a 47-year-old male patient under the care of of Dr. Stoll and Dr. 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 Patient was diagnosed in June of this year and has been on cisplatin from May 25 through July 06. He states he has now completed his course of chemotherapy. His last radiation treatment was on 06/11/2018. Tracheostomy was placed April this year. His temperature maximum was 100.2 and cough. He does have difficulty swallowing and throat pain as well as concern for dehydration as he is not able to tolerate significant amount of oral fluids and came into the emergency center for evaluation. WBC 1, hemoglobin 10.5 and platelet count 59. Creatinine 0.84, albumin 3.5. Influenza testing was negative. Urinalysis was 4+ ketones, nitrate and leukoesterase negative. Chest x-ray showed no acute cardiopulmonary process. Patient was admitted to the [facility] floor for neutropenic fever. Dr. Stoll is also on consult. He is currently on cefepime and vancomycin. Blood, urine, sputum or status received. Please see the consult note as dictated by nurse practitioner Mrs. Shellie Asif. This pleasant 47-year-old male is history of squamous cell carcinoma the tongue, HPV related, status post his course of radiation therapy that has just finished and his chemotherapy. Tracheostomy was required. However has not received a feeding tube. In relates that he's lost about 20 pounds and is having difficulty eating. Taste is poor and oral cavity and swallowing is uncomfortable. The case is discussed with the oncologist. Patient has evidence of mucositis of chemotherapy and radiation induced which is interfering with his ability to eat. Try to offer him comfort foods as much as he can tolerate. He does have relative neutropenia and with his fever and illness antibiotic therapy is initiated with cefepime and Vanco will also initiate oral antiviral therapy and antifungal therapy with fluconazole for now until there is further data. He has maintained a normal albumin but total protein is low. Suggest any attempts further nutritional supplements to improve his protein intake. Oral steroid rinse will be utilized to try to improve there'll cavity discomfort. Cultures are process and will help determine the overall course of antibiotic therapy. I agree with evaluation, assessment and plan as dictated by nurse practitioner Mrs. Shellie Asif.
[2018-07-18] MEDS: CEFEPIME 2 GM in SODIUM CHLORIDE 0.9% 100 ML IVPB SCH ×3 (00:17→15:44)
[2018-07-18] MEDS: HYDROmorphone 0.5 MG/0.5 ML SYRINGE IVP PRN ×7 (00:55→21:13)
[2018-07-18] MEDS: VANCOMYCIN 1,500 MG in SODIUM CHLORIDE 0.9% 250 ML IVPB SCH ×3 (02:37→18:01)
[2018-07-18] MEDS: SODIUM CHLORIDE 0.9% 1,000 ML IV SCH ×3 (02:39→21:41)
[2018-07-18] MEDS: MAG HYDROX/AL HYDROX/SIMETH 30 ML, LIDOCAINE VISCOUS 30 ML, diphenhydrAMINE ELIXIR 75 M... PO SCH ×15 (07:56→21:41)
[2018-07-18] MEDS: valACYclovir 500 MG TAB PO SCH ×2 (07:57→21:14)
[2018-07-18] MEDS: LORATADINE 10 MG TAB PO SCH (07:57)
[2018-07-18] MEDS ORDERED: VANCOMYCIN TROUGH DUE 1 EACH MISC MISCELLANE ONE (09:00)
[2018-07-18 09:50] LABS: ALT 25 U/L (21-72); AST 11 U/L (17-59); Albumin 2.8 g/dL (3.5-5.0); Alkaline Phosphatase 55 U/L (38-126); Anion Gap 12 mmol/L; Blood Urea Nitrogen 16 mg/dL (9-20); Calcium 8.1 mg/dL (8.4-10.2); Carbon Dioxide 21 mmol/L (22-30); Chloride 107 mmol/L (98-107); Glucose 80 mg/dL (74-99); Potassium 4.2 mmol/L (3.5-5.1); Sodium 140 mmol/L (137-145); Total Protein 5.1 g/dL (6.3-8.2)
[2018-07-18 11:01] LABS: Anisocytosis Moderate; HCT 20.4 % (39.0-53.0); MCH 30.3 pg (25.0-35.0); MCHC 34.6 g/dL (31.0-37.0); MCV 87.7 fL (80.0-100.0); Mean Platelet Volume 7.4; Poikilocytosis Slight; RBC 2.33 m/uL (4.30-5.90)
[2018-07-18 11:04] LABS: WBC 1.1 k/uL (3.8-10.6)
[2018-07-18 11:05] LABS: HGB 7.1 gm/dL (13.0-17.5); Platelet Count 71 k/uL (150-450)
[2018-07-18 11:48] LABS: Magnesium 1.5 mg/dL (1.6-2.3)
--- NOTE | 2018-07-18 12:33 | P.PN ---
Subjective Progress Note Date: 07/18/18 Principal diagnosis: head and neck ca - Mucocytitis Mild improvement today, tolerating some PO intake. Drop in hemoglobin related to last treatment recently and dilution, monitor closely. Objective - Vital Signs Vital signs: Vital Signs Temp 99.0 F 07/18/18 05:00 Pulse 99 07/18/18 05:00 Resp 16 07/18/18 05:00 BP 102/66 07/18/18 05:00 Pulse Ox 97 07/18/18 08:06 Intake & Output 07/17/18 07/18/18 07/18/18 18:59 06:59 18:59 Intake Total 900 1530 Balance 900 1530 Weight 90.718 kg Intake: Intake, IV Titration 900 1350 Amount Cefepime 2 gm In Sodium 100 100 Chloride 0.9% 100 ml @ 200 mls/hr IVPB Q8HR [facility] Rx#:[id number] Sodium Chloride 0.9% 1, 550 1000 000 ml @ 100 mls/hr IV . Q10H [facility] Rx#:[id number] Vancomycin 1,500 mg In 250 250 Sodium Chloride 0.9% 250 ml @ 125 mls/hr IVPB Q8H [facility] Rx#:[id number] Oral 180 Other: Voiding Method Urinal Urinal # Voids 1 - Exam Gen: Alert and oriented, NAD Head NC, NT Mouth: Mucocytitis, canker sores, erythema, component thrush, edema. Neck: Erythema skin outside from radiation, no peeling or open areas to outside area. Trach Lung: CTA Bilatreral No increased effort Heart: RRR, S1s2 Abdomen: Soft, ND, NT Extremities: No edema, Pedal Pulses palpable - Labs CBC & Chem 7: 07/18/18 08:49 07/18/18 08:49 Labs: Abnormal Lab Results - Last 24 Hours (Table) 07/18/18 07/18/18 Range/Units 08:49 08:49 WBC 1.1 L* (3.8-10.6) k/uL RBC 2.33 L (4.30-5.90) m/uL Hgb 7.1 L D (13.0-17.5) gm/dL Hct 20.4 L (39.0-53.0) % RDW 21.0 H (11.5-15.5) % Plt Count 71 L (150-450) k/uL Carbon Dioxide 21 L (22-30) mmol/L Calcium 8.1 L (8.4-10.2) mg/dL Magnesium 1.5 L (1.6-2.3) mg/dL AST 11 L (17-59) U/L Total Protein 5.1 L (6.3-8.2) g/dL Albumin 2.8 L (3.5-5.0) g/dL Microbiology - Last 24 Hours (Table) 07/16/18 23:23 Urine Culture - Final Urine,Clean Catch 07/17/18 13:00 Gram Stain - Preliminary Sputum Sputum Culture - Preliminary 07/16/18 16:00 Blood Culture - Preliminary Blood No Growth after 24 hours Assessment and Plan Plan: Assessment and Rec: 1. Severe Mucocytitis related to treatment from Chemotherapy and Radiation - Failed Oral Rinses and PO Dex as outpatient although did not adhere to them as directed for taste - Antiviral and Antifungals per Infectious disease - PO Doxepin, crush and mix in water rinse and spit/swallow at hs 2. Pancytopenia Secondary to treatment with chemo and radiation - Zarxio 480 sub cut daily for immune support - Monitor daily CBC with Differential - Supportive Transfusions if needed - Antibiotics per Dr. Quezada, ID - Hemoglobin 7.2, platelets 72K - Transfuse platlets less than 10, or hemoglo bin less than 7 3. Squamous Cell Carcinoma of Head and Neck - Status Post 6 weeks of weekly Cisplatin concurrent radiation 4. Mild Malnutrition - - Add MVI to IV Bag - Dietitcien following. Plan: - Continue aggressive supportive care - Allow count recovery and healing of oral pharynx and consumption of po intake - Re-education to patient Physician Attest: I have completed the full history and physical and agree with above dictation by Keara Richards, I have developed the completed impression and plan, above dictated as a scribe.
[2018-07-18] MEDS: NYSTATIN 100,000 UNIT/GM POWD 15 GM TOPICAL SCH ×3 (12:35→21:41)
[2018-07-18] MEDS: 1: MVI, ADULT NO.4 WITH VIT K 10 ML, THIAMINE 100 MG, FOLIC ACID 1 MG in SODIUM CHLORIDE IV SCH ×4 (12:35)
[2018-07-18 15:01] LABS: Band Neutrophils % 17 %; Eosinophils # (M) 0.02 k/uL (0-0.7); Lymphocytes # (M) 0.09 k/uL (1.0-4.8); Monocytes # (M) 0.15 k/uL (0-1.0); Neutrophils % (M) 59 %; Nucleated Red Blood Cells 1 /100 WBC (0-0); Total Cells Counted 100
[2018-07-18 15:03] LABS: Polychromasia Present
--- NOTE | 2018-07-18 15:12 | P.PN ---
Subjective Progress Note Date: 07/18/18 This is a pleasant 47-year-old gentleman patient of Dr. 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 Stoll. He didn't have any tongue resection for this. however he underwent cisplatin started May 25, and has completed chemotherapy. He goes every , his last chemotherapy was 06/28/2018. He currently is on radiation treatment, with Dr. Zamora, last treatment was 06/11/2018. His initial tongue cancer was also noted to be positive in the lymph node based on CT, he comes in now with fever for one day 100.2 in er, cough of one day, the patient has a trach collar that is not blistered and does not have any new rashes, no recent foreign travels, no sick contacts at home. he denies any GI complaints he was last seen in the office 08/02/2017, diagnosed to have BPH without lower tract symptomatology, hypertension, hyperlipidemia, patient is not on any home medications. He does have mucus production trace trach collar and some cough, clear white sputum. Emergency room laboratory showed WBC count of 1.0, platelet count of 59, creatinine of 0.84, normal liver function tests, albumin and protein is a little bit on the lower side, lactic acid off 0.7, urinalysis normal except for ketones, and dehydration. influenza test was negative chest x-ray shows no acute pulmonary disease no active infiltrates, patient was admitted for neutropenic fever with WBC count of 1.0, no absolute neutrophil count for review, consult was made with Dr. Stoll, and Dr. Quezada for pancytopenia with neutropenic fever, main source unknown, most likely respiratory tract, we're going to obtain sputum cultures from the aspirate to deep suctioning, he started on vancomycin and cefepime. Inspection of the skin fails to reveal any rashes or open sores including the neck collar 07/18: Patient has been seen by Dr. Quezada and started on fluconazole IV and Valtrex. He is to continue on cefepime and vancomycin. Oncology has started S[place]quan, Xario. Repeat lab work reveals WBC 1.1, hemoglobin 7.1, platelet count 71. Creatinine 0.69, CO2 21, calcium 8.1, magnesium 1.5. Patient has been started on TPN. He is on clear liquid diet and will be advanced to full liquid diet. He is complaining of rash of the lower abdomen that is a little itchy. He has used in the groin. Patient is refused to take cool solution. He states that Dr. Kothari will be entering move his trach. Temperature maximum 100.0, heart rate 90s to 108, blood pressure 122/66, pulse ox 98% on room air. Review of Systems Constitutional: Reports anorexia, Reports chills, Reports fever, Reports lethargy, Reports poor appetite, Reports weight loss Ears, nose, mouth and throat: Reports odynophagia, Reports sore throat, reports mouth pain Cardiovascular: Denies dyspnea on exertion, Denies edema, Denies irregular heart beat, Denies leg edema, Denies syncope Respiratory: Reports cough, Denies congestion, Denies cough with sputum, Denies dyspnea, Denies excessive sputum, Denies hemoptysis, Denies home oxygen, Denies wheezing Gastrointestinal: Denies abdominal pain, Denies diarrhea, Denies nausea, Denies vomiting Genitourinary: Denies dysuria, Denies urinary retention Musculoskeletal: Denies frequent falls, Denies gait dysfunction Integumentary: Denies darkening of skin, Denies rash, Denies wounds Neurological: Denies aphasia, Denies change in mentation, Denies change in speech, Denies confusion, Denies gait dysfunction, Denies seizures Psychiatric: Denies anxiety, Denies depression Objective - Vital Signs Vital signs: Vital Signs Temp 99.0 F 07/18/18 05:00 Pulse 99 07/18/18 05:00 Resp 16 07/18/18 05:00 BP 102/66 07/18/18 05:00 Pulse Ox 97 07/18/18 08:06 Intake & Output 07/17/18 07/18/18 07/18/18 18:59 06:59 18:59 Intake Total 900 1530 Balance 900 1530 Weight 90.718 kg Intake: Intake, IV Titration 900 1350 Amount Cefepime 2 gm In Sodium 100 100 Chloride 0.9% 100 ml @ 200 mls/hr IVPB Q8HR [facility] Rx#:[id number] Sodium Chloride 0.9% 1, 550 1000 000 ml @ 100 mls/hr IV . Q10H [facility] Rx#:[id number] Vancomycin 1,500 mg In 250 250 Sodium Chloride 0.9% 250 ml @ 125 mls/hr IVPB Q8H [facility] Rx#:[id number] Oral 180 Other: Voiding Method Urinal # Voids 1 - Exam General appearance: average body habitus, cooperative, no acute distress patient is resting comfortably in bed. - EENT Eyes: anicteric sclerae, EOMI, PERRLA, dentition normal, normal appearance ENT: hearing grossly normal, normal oropharynx - Neck Neck: normal ROM - Respiratory Respiratory: bilateral: CTA, negative: diminished, dullness, rales - Cardiovascular Rhythm: regular Heart sounds: normal: S1, S2 Abnormal Heart Sounds: no systolic murmur, no diastolic murmur, no rub, no S3 Gallop, no S4 Gallop, no click, no other - Gastrointestinal General gastrointestinal: normal bowel sounds, soft - Integumentary rubor noted neck line where trach collar is located, trach site normal in location Rash to the lower abdomen. - Neurologic Neurologic: CNII-XII intact - Musculoskeletal Musculoskeletal: gait normal, generalized weakness, strength equal bilaterally - Psychiatric Psychiatric: A&O x's 3, appropriate affect, intact judgment & insight - Labs CBC & Chem 7: 07/18/18 08:49 07/18/18 08:49 Labs: Abnormal Lab Results - Last 24 Hours (Table) 07/18/18 Range/Units 08:49 Carbon Dioxide 21 L (22-30) mmol/L Calcium 8.1 L (8.4-10.2) mg/dL AST 11 L (17-59) U/L Total Protein 5.1 L (6.3-8.2) g/dL Albumin 2.8 L (3.5-5.0) g/dL Microbiology - Last 24 Hours (Table) 07/17/18 13:00 Gram Stain - Preliminary Sputum Sputum Culture - Preliminary 07/16/18 16:00 Blood Culture - Preliminary Blood No Growth after 24 hours 07/16/18 23:23 Urine Culture - Preliminary Urine,Clean Catch Assessment and Plan Plan: 1. Neutropenic fever, known history of squamous cell carcinoma of the base of the tongue, recently completed chemotherapy as of 07/06/2018, patient is on vancomycin IV and cefepime, consult were made with Dr. Stoll and Dr. Quezada, sputum cultures to be obtained to tracheostomy specimen via suctioning, blood cultures has been sent, influenza ANB negative by PCR, urinalysis negative 2. Squamous cell carcinoma at the base of the tongue, chemotherapy with cisplatin, completed 07/06/2018, started 05/25/2018, Dr. Stoll 3. Pancytopenia. Oncology consult appreciated. Patient has been started on Xario. 2. BPH without lower tract symptomatology 4. Dehydration with mild azotemia, unknown baseline, suspect acute renal insufficiency with ketonuria related to diminished oral intake 5. Hyperlipidemia not on any medication prior to admission 6. Hypertension, currently normotensive without medications, continue to monitor 7. GI prophylaxis Pepcid 8. DVT prophylaxis with Lovenox 40 mg every daily, monitor for platelets, this needs to be discontinued if there should count is under 50, no evidence of bleeding, moderate risk 9. Severe protein calorie malnutrition with significant weight loss. Dietitian following, TPN. 10. Severe mucocytitis secondary to chemotherapy and radiation. Continue cool solution patient will use, antiviral and antifungal ordered by Dr. Quezada. Doxepin added by oncology. Discharge plan: Return home Impression and plan of care have been directed as dictated by the signing physician. Shellie Asif nurse practitioner acting as scribe for signing physician.
[2018-07-18] MEDS: FLUCONAZOLE IN NACL,ISO-OSM 200 MG in SALINE 1 100ML.BAG IVPB SCH (17:12)
[2018-07-18] MEDS: FILGRASTIM-SNDZ 480 MCG/0.8 ML SYRINGE SQ SCH (21:39)
--- NOTE | 2018-07-18 23:14 | P.PN ---
Subjective Progress Note Date: 07/18/18 This is a 47-year-old male patient under the care of of Dr. Stoll and Dr. 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 Patient was diagnosed in June of this year and has been on cisplatin from May 25 through July 06. He states he has now completed his course of chemotherapy. His last radiation treatment was on 06/11/2018. Tracheostomy was placed April this year. His temperature maximum was 100.2 and cough. He does have difficulty swallowing and throat pain as well as concern for dehydration as he is not able to tolerate significant amount of oral fluids and came into the emergency center for evaluation. WBC 1, hemoglobin 10.5 and platelet count 59. Creatinine 0.84, albumin 3.5. Influenza testing was negative. Urinalysis was 4+ ketones, nitrate and leukoesterase negative. Chest x-ray showed no acute cardiopulmonary process. Patient was admitted to the [facility] floor for neutropenic fever. Dr. Stoll is also on consult. He is currently on cefepime and vancomycin. Blood, urine, sputum or status received. 07/18/2018 the patient remains miserable. Oral cavity is still uncomfortable and when he attempts to eat or ingesting any food or protein supplements he has intense burning and discomfort. Does not do well with any of the topical therapies to improve his discomforts. He remains miserable although hydrated by IV fluids. We have asked him if he would accept a PEG tube and the answer is no at this point in time. A supposed to be decannulated from his tracheostomy and this is trying to be arranged also. This may improve some of his discomfort and help his swallowing. Leukopenia persists fever improved Objective - Vital Signs Vital signs: Vital Signs Temp 98.1 F 07/18/18 21:00 Pulse 95 07/18/18 21:00 Resp 18 07/18/18 21:00 BP 117/68 07/18/18 21:00 Pulse Ox 97 07/18/18 21:00 Intake & Output 07/18/18 07/18/18 07/19/18 06:59 18:59 06:59 Intake Total 1530 550 120 Balance 1530 550 120 Weight 90.718 kg Intake: Intake, IV Titration 1350 550 Amount Cefepime 2 gm In Sodium 100 100 Chloride 0.9% 100 ml @ 200 mls/hr IVPB Q8HR ANA MARIA Rx#:[id number] Mvi, Adult No.4 with Vit 200 K 10 ml Thiamine 100 mg Folic Acid 1 mg In Sodium Chloride 0.9% 1,000 ml @ 100 mls/hr IV .BY DURATION ANA MARIA Rx#: [id number] Sodium Chloride 0.9% 1, 1000 000 ml @ 100 mls/hr IV . Q10H ANA MARIA Rx#:[id number] Vancomycin 1,500 mg In 250 250 Sodium Chloride 0.9% 250 ml @ 125 mls/hr IVPB Q8H ANA MARIA Rx#:[id number] Oral 180 120 Other: Voiding Method Urinal Urinal # Voids 1 - Exam Gen: This is a 47-year-old male. He is resting in bed. Noted cough with white sputum production from trach. HEENT: Head is atraumatic, normocephalic. Pupils equal, round. Sclerae is anicteric. NECK: Supple. Tracheotomy and trach collar in place. there is evidence of some the radiation dermatitis to the neck which is irritated from the trach larsen LUNGS: Clear to auscultation. No wheezes or rhonchi. No intercostal retractions . HEART: Regular rate and rhythm. No murmur. ABDOMEN: Soft. Bowel sounds are present. No masses. No tenderness. EXTREMITIES: No pedal edema. No calf tenderness. NEUROLOGICAL: Patient is awake, alert and oriented x3. Cranial nerves 2 through 12 are grossly intact. - Labs CBC & Chem 7: 07/18/18 08:49 07/18/18 08:49 Labs: Abnormal Lab Results - Last 24 Hours (Table) 07/18/18 07/18/18 Range/Units 08:49 08:49 WBC 1.1 L* (3.8-10.6) k/uL RBC 2.33 L (4.30-5.90) m/uL Hgb 7.1 L D (13.0-17.5) gm/dL Hct 20.4 L (39.0-53.0) % RDW 21.0 H (11.5-15.5) % Plt Count 71 L (150-450) k/uL Neutrophils # (Manual) 0.80 L (1.3-7.7) k/uL Lymphocytes # (Manual) 0.09 L (1.0-4.8) k/uL Nucleated RBCs 1 H (0-0) /100 WBC Carbon Dioxide 21 L (22-30) mmol/L Calcium 8.1 L (8.4-10.2) mg/dL Magnesium 1.5 L (1.6-2.3) mg/dL AST 11 L (17-59) U/L Total Protein 5.1 L (6.3-8.2) g/dL Albumin 2.8 L (3.5-5.0) g/dL Microbiology - Last 24 Hours (Table) 07/16/18 16:00 Blood Culture - Preliminary Blood No Growth after 48 hours 07/16/18 23:23 Urine Culture - Final Urine,Clean Catch 07/17/18 13:00 Gram Stain - Preliminary Sputum Sputum Culture - Preliminary Laboratory Results WBC 1.1 k/uL (3.8-10.6) L* 07/18/18 08:49 RBC 2.33 m/uL (4.30-5.90) L 07/18/18 08:49 Hgb 7.1 gm/dL (13.0-17.5) L D 07/18/18 08:49 Hct 20.4 % (39.0-53.0) L 07/18/18 08:49 MCV 87.7 fL (80.0-100.0) 07/18/18 08:49 MCH 30.3 pg (25.0-35.0) 07/18/18 08:49 MCHC 34.6 g/dL (31.0-37.0) 07/18/18 08:49 RDW 21.0 % (11.5-15.5) H 07/18/18 08:49 Plt Count 71 k/uL (150-450) L 07/18/18 08:49 Neutrophils % (Manual) 59 % 07/18/18 08:49 Band Neutrophils % 17 % 07/18/18 08:49 Lymphocytes % (Manual) 8 % 07/18/18 08:49 Monocytes % (Manual) 14 % 07/18/18 08:49 Eosinophils % (Manual) 2 % 07/18/18 08:49 Neutrophils # (Manual) 0.80 k/uL (1.3-7.7) L 07/18/18 08:49 Lymphocytes # (Manual) 0.09 k/uL (1.0-4.8) L 07/18/18 08:49 Monocytes # (Manual) 0.15 k/uL (0-1.0) 07/18/18 08:49 Eosinophils # (Manual) 0.02 k/uL (0-0.7) 07/18/18 08:49 Nucleated RBCs 1 /100 WBC (0-0) H 07/18/18 08:49 Differential Comment 07/16/18 14:15 Manual Slide Review Performed 07/18/18 08:49 Polychromasia Present 07/18/18 08:49 Hyperchromasia Slight 07/16/18 14:15 Poikilocytosis Slight 07/18/18 08:49 Anisocytosis Moderate 07/18/18 08:49 Microcytosis Slight 07/16/18 14:15 Sodium 140 mmol/L (137-145) 07/18/18 08:49 Potassium 4.2 mmol/L (3.5-5.1) 07/18/18 08:49 Chloride 107 mmol/L (98-107) 07/18/18 08:49 Carbon Dioxide 21 mmol/L (22-30) L 07/18/18 08:49 Anion Gap 12 mmol/L 07/18/18 08:49 BUN 16 mg/dL (9-20) 07/18/18 08:49 Creatinine 0.69 mg/dL (0.66-1.25) 07/18/18 08:49 Est GFR (CKD-EPI)AfAm >90 (>60 ml/min/1.73 sqM) 07/18/18 08:49 Est GFR (CKD-EPI)NonAf >90 (>60 ml/min/1.73 sqM) 07/18/18 08:49 Glucose 80 mg/dL (74-99) 07/18/18 08:49 Plasma Lactic Acid Jaylen 0.7 mmol/L (0.7-2.0) 07/16/18 16:00 Calcium 8.1 mg/dL (8.4-10.2) L 07/18/18 08:49 Magnesium 1.5 mg/dL (1.6-2.3) L 07/18/18 08:49 Total Bilirubin 1.0 mg/dL (0.2-1.3) 07/18/18 08:49 AST 11 U/L (17-59) L 07/18/18 08:49 ALT 25 U/L (21-72) 07/18/18 08:49 Alkaline Phosphatase 55 U/L (38-126) 07/18/18 08:49 Total Protein 5.1 g/dL (6.3-8.2) L 07/18/18 08:49 Albumin 2.8 g/dL (3.5-5.0) L 07/18/18 08:49 Urine Color Yellow 07/16/18 23:23 Urine Appearance Clear (Clear) 07/16/18 23:23 Urine pH 5.5 (5.0-8.0) 07/16/18 23:23 Ur Specific Ribera 1.027 (1.001-1.035) 07/16/18 23:23 Urine Protein Trace (Negative) H 07/16/18 23:23 Urine Glucose (UA) Negative (Negative) 07/16/18 23:23 Urine Ketones 4+ (Negative) H 07/16/18 23:23 Urine Blood Negative (Negative) 07/16/18 23:23 Urine Nitrite Negative (Negative) 07/16/18 23:23 Urine Bilirubin Negative (Negative) 07/16/18 23:23 Urine Urobilinogen <2.0 mg/dL (<2.0) 07/16/18 23:23 Ur Leukocyte Esterase Negative (Negative) 07/16/18 23:23 Vancomycin Trough 16.3 ug/mL 07/18/18 08:49 Serum DESIREE Interpret SEE NOTE 07/16/18 14:15 Influenza Type A RNA Not Detected (Not Detectd) 07/16/18 16:04 Influenza Type B (PCR) Not Detected (Not Detectd) 07/16/18 16:04 Microbiology 07/16/18 16:00 Blood Blood Culture - Preliminary No Growth after 48 hours 07/16/18 23:23 Urine,Clean Catch Urine Culture - Final 07/17/18 13:00 Sputum Gram Stain - Preliminary 07/17/18 13:00 Sputum Sputum Culture - Preliminary Assessment and Plan (1) Neutropenic fever Narrative/Plan: This pleasant 47-year-old male is history of squamous cell carcinoma the tongue, HPV related, status post his course of radiation therapy that has just finished and his chemotherapy. Tracheostomy was required. However has not received a feeding tube. In relates that he's lost about 20 pounds and is having difficulty eating. Taste is poor and oral cavity and swallowing is unco mfortable. The case is discussed with the oncologist. Patient has evidence of mucositis of chemotherapy and radiation induced which is interfering with his ability to eat. Try to offer him comfort foods as much as he can tolerate. He does have relative neutropenia and with his fever and illness antibiotic therapy is initiated with cefepime and Vanco will also initiate oral antiviral therapy and antifungal therapy with fluconazole for now until there is further data. He has maintained a normal albumin but total protein is low. Suggest any attempts further nutritional supplements to improve his protein intake. Oral steroid rinse will be utilized to try to improve there'll cavity discomfo rt. Cultures are process and will help determine the overall course of antibiotic therapy. 07/18/2018 the patient is feeling poorly still. Continues to have great difficulties attempting to ingest food or protein supplements. Apparently he is to be taken later from the tracheostomy in the near future and apparently this is trying to occur during this stay. PICC line is requested Dietitian to help with TPN orders The patient is in need of nutritional improvement to allow him to heal the current illnesses and he does not want a PEG tube. Continue antibiotic and antiviral and antifungal therapy for now cultures in process. Current Visit: Yes Status: Acute Code(s): D70.9 - NEUTROPENIA, UNSPECIFIED; R50.81 - FEVER PRESENTING WITH CONDITIONS CLASSIFIED ELSEWHERE SNOMED Code(s): 536849480 (2) Tongue cancer Current Visit: Yes Status: Acute Code(s): C02.9 - MALIGNANT NEOPLASM OF TONGUE, UNSPECIFIED SNOMED Code(s): 459298953
[2018-07-19] MEDS: HYDROmorphone 0.5 MG/0.5 ML SYRINGE IVP PRN ×7 (00:09→22:07)
[2018-07-19] MEDS: CEFEPIME 2 GM in SODIUM CHLORIDE 0.9% 100 ML IVPB SCH ×3 (00:09→15:34)
[2018-07-19] MEDS: VANCOMYCIN 1,500 MG in SODIUM CHLORIDE 0.9% 250 ML IVPB SCH ×3 (03:06→17:55)
[2018-07-19] MEDS: 1: MVI, ADULT NO.4 WITH VIT K 10 ML, THIAMINE 100 MG, FOLIC ACID 1 MG in SODIUM CHLORIDE IV SCH ×8 (03:09→08:13)
[2018-07-19] MEDS: LORATADINE 10 MG TAB PO SCH (08:13)
[2018-07-19] MEDS: NYSTATIN 100,000 UNIT/GM POWD 15 GM TOPICAL SCH ×3 (08:14→21:31)
[2018-07-19] MEDS: SODIUM CHLORIDE 0.9% 1,000 ML IV SCH ×3 (08:14→17:56)
[2018-07-19] MEDS: MAG HYDROX/AL HYDROX/SIMETH 30 ML, LIDOCAINE VISCOUS 30 ML, diphenhydrAMINE ELIXIR 75 M... PO SCH ×15 (08:15→20:48)
[2018-07-19 09:48] LABS: Anisocytosis Moderate; HCT 21.4 % (39.0-53.0); HGB 7.2 gm/dL (13.0-17.5); MCH 29.9 pg (25.0-35.0); MCHC 33.6 g/dL (31.0-37.0); Macrocytosis Slight; Mean Platelet Volume 7.5; Poikilocytosis Moderate; RDW 21.2 % (11.5-15.5)
[2018-07-19 09:51] LABS: ALT 20 U/L (21-72); AST 11 U/L (17-59); Albumin 2.8 g/dL (3.5-5.0); Alkaline Phosphatase 58 U/L (38-126); Anion Gap 7 mmol/L; Blood Urea Nitrogen 15 mg/dL (9-20); Calcium 8.2 mg/dL (8.4-10.2); Carbon Dioxide 26 mmol/L (22-30); Chloride 107 mmol/L (98-107); Glucose 74 mg/dL (74-99); Magnesium 1.6 mg/dL (1.6-2.3); Potassium 3.9 mmol/L (3.5-5.1); Sodium 140 mmol/L (137-145); Total Bilirubin 1.1 mg/dL (0.2-1.3); Total Protein 5.1 g/dL (6.3-8.2)
[2018-07-19 09:56] LABS: Platelet Count 73 k/uL (150-450); WBC 1.2 k/uL (3.8-10.6)
[2018-07-19] MEDS: valACYclovir 500 MG TAB PO SCH ×2 (11:16→20:47)
[2018-07-19 12:19] LABS: Band Neutrophils % 4 %; Eosinophils # (M) 0.05 k/uL (0-0.7); Lymphocytes # (M) 0.12 k/uL (1.0-4.8); Monocytes # (M) 0.19 k/uL (0-1.0); Neutrophils % (M) 66 %; Nucleated Red Blood Cells 0 /100 WBC (0-0); Total Cells Counted 100
--- NOTE | 2018-07-19 13:07 | P.PN ---
Subjective Progress Note Date: 07/19/18 Principal diagnosis: head and neck ca - Mucocytitis Blood counts are stable but remain low. Objective - Vital Signs Vital signs: Vital Signs Temp 98.3 F 07/19/18 11:17 Pulse 101 H 07/19/18 11:17 Resp 18 07/19/18 11:17 BP 118/64 07/19/18 11:17 Pulse Ox 94 L 07/19/18 11:17 Intake & Output 07/18/18 07/19/18 07/19/18 18:59 06:59 18:59 Intake Total 550 2821.2 Balance 550 2821.2 Weight 90.718 kg Intake: Intake, IV Titration 550 2461.2 Amount Cefepime 2 gm In Sodium 100 100 Chloride 0.9% 100 ml @ 200 mls/hr IVPB Q8HR ANA MARIA Rx#:[id number] Mvi, Adult No.4 with Vit 200 1811.2 K 10 ml Thiamine 100 mg Folic Acid 1 mg In Sodium Chloride 0.9% 1,000 ml @ 100 mls/hr IV .BY DURATION ANA MARIA Rx#: [id number] Sodium Chloride 0.9% 1, 300 000 ml @ 100 mls/hr IV . BY DURATION ANA MARIA Rx#: [id number] Vancomycin 1,500 mg In 250 250 Sodium Chloride 0.9% 250 ml @ 125 mls/hr IVPB Q8H ANA MARIA Rx#:[id number] Oral 360 Other: Voiding Method Urinal Toilet # Voids 1 - Exam Gen: Alert and oriented, NAD Head NC, NT Mouth: Mucocytitis, canker sores, erythema, component thrush, edema. Neck: Erythema skin outside from radiation, no peeling or open areas to outside area. Trach Lung: CTA Bilatreral No increased effort Heart: RRR, S1s2 Abdomen: Soft, ND, NT Extremities: No edema, Pedal Pulses palpable - Labs CBC & Chem 7: 07/20/18 08:26 07/20/18 08:26 Labs: Abnormal Lab Results - Last 24 Hours (Table) 07/18/18 07/19/18 07/19/18 Range/Units 08:49 08:26 08:26 WBC 1.2 L* (3.8-10.6) k/uL RBC 2.40 L (4.30-5.90) m/uL Hgb 7.2 L (13.0-17.5) gm/dL Hct 21.4 L (39.0-53.0) % RDW 21.2 H (11.5-15.5) % Plt Count 73 L (150-450) k/uL Neutrophils # (Manual) 0.80 L 0.80 L (1.3-7.7) k/uL Lymphocytes # (Manual) 0.09 L 0.12 L (1.0-4.8) k/uL Nucleated RBCs 1 H (0-0) /100 WBC Creatinine 0.61 L (0.66-1.25) mg/dL Calcium 8.2 L (8.4-10.2) mg/dL AST 11 L (17-59) U/L ALT 20 L (21-72) U/L Total Protein 5.1 L (6.3-8.2) g/dL Albumin 2.8 L (3.5-5.0) g/dL Microbiology - Last 24 Hours (Table) 07/17/18 13:00 Gram Stain - Final Sputum Sputum Culture - Final 07/16/18 16:00 Blood Culture - Preliminary Blood No Growth after 48 hours 07/16/18 23:23 Urine Culture - Final Urine,Clean Catch Assessment and Plan Plan: Assessment and Rec: 1. Severe Mucocytitis related to treatment from Chemotherapy and Radiation - Failed Oral Rinses and PO Dex as outpatient although did not adhere to them as directed for taste - Antiviral and Antifungals per Infectious disease - PO Doxepin, crush and mix in water rinse and spit/swallow at hs 2. Pancytopenia Secondary to treatment with chemo and radiation - Zarxio 480 sub cut daily for immune support - Monitor daily CBC with Differential - Supportive Transfusions if needed - Antibiotics per Dr. Quezada, ID - Transfuse platlets less than 10, or hemoglobin less than 7 3. Squamous Cell Carcinoma of Head and Neck - Status Post 6 weeks of weekly Cisplatin concurrent radiation 4. Mild Malnutrition - - Add MVI to IV Bag - System Designer following. - ok for TPN (per Dr. Stoll) for short term and if ok ID, with prolonged neutropenia and hospitalization, should improve dysphagia when neutropenia resolves Plan: - Continue aggressive supportive care - Allow count recovery and healing of oral pharynx and consumption of po intake - Re-education to patient Physician Attest: I have completed the full history and physical and agree with above dictation by Keara Richards, I have developed the completed impression and plan, above dictated as a scribe.
[2018-07-19] MEDS ORDERED: LIDOCAINE 1% INJ 10MG/ML (20 ML MDV) ONE (13:14)
--- NOTE | 2018-07-19 14:55 | P.PN ---
Subjective Progress Note Date: 07/19/18 This is a pleasant 47-year-old gentleman patient of Dr. 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 Stoll. He didn't have any tongue resection for this. however he underwent cisplatin started May 25, and has completed chemotherapy. He goes every , his last chemotherapy was 06/28/2018. He currently is on radiation treatment, with Dr. Zamora, last treatment was 06/11/2018. His initial tongue cancer was also noted to be positive in the lymph node based on CT, he comes in now with fever for one day 100.2 in er, cough of one day, the patient has a trach collar that is not blistered and does not have any new rashes, no recent foreign travels, no sick contacts at home. he denies any GI complaints he was last seen in the office 08/02/2017, diagnosed to have BPH without lower tract symptomatology, hypertension, hyperlipidemia, patient is not on any home medications. He does have mucus production trace trach collar and some cough, clear white sputum. Emergency room laboratory showed WBC count of 1.0, platelet count of 59, creatinine of 0.84, normal liver function tests, albumin and protein is a little bit on the lower side, lactic acid off 0.7, urinalysis normal except for ketones, and dehydration. influenza test was negative chest x-ray shows no acute pulmonary disease no active infiltrates, patient was admitted for neutropenic fever with WBC count of 1.0, no absolute neutrophil count for review, consult was made with Dr. Stoll, and Dr. Quezada for pancytopenia with neutropenic fever, main source unknown, most likely respiratory tract, we're going to obtain sputum cultures from the aspirate to deep suctioning, he started on vancomycin and cefepime. Inspection of the skin fails to reveal any rashes or open sores including the neck collar 07/18: Patient has been seen by Dr. Quezada and started on fluconazole IV and Valtrex. He is to continue on cefepime and vancomycin. Oncology has started Sinequan, Xario. Repeat lab work reveals WBC 1.1, hemoglobin 7.1, platelet count 71. Creatinine 0.69, CO2 21, calcium 8.1, magnesium 1.5. Patient has been started on TPN. He is on clear liquid diet and will be advanced to full liquid diet. He is complaining of rash of the lower abdomen that is a little itchy. He has used in the groin. Patient is refused to take cool solution. He states that Dr. Kothari will be removing his trach. Temperature maximum 100.0, heart rate 90s to 108, blood pressure 122/66, pulse ox 98% on room air. 07/19: The patient continues to have difficulty with swallowing with sore mouth and throat. Rash is about the same from yesterday and states it's a little itchy. Patient is to have a PICC line placed for TPN. We will add in a consult for Dr. Kothari for removal of trach. No medication changes made today. Patient's been afebrile, heart rate 97, blood pressure 1 /64, pulse ox 97% on room air. Repeat lab work reveals WBC 1.2, hemoglobin 7.2, platelet count 73, creatinine 0.61. Electrolytes within normal limits. Review of Systems Constitutional: Reports anorexia, Reports chills, Reports fever, Reports lethargy, Reports poor appetite, Reports weight loss Ears, nose, mouth and throat: Reports odynophagia, Reports sore throat, reports mouth pain Cardiovascular: Denies dyspnea on exertion, Denies edema, Denies irregular heart beat, Denies leg edema, Denies syncope Respiratory: Reports cough, Denies congestion, Denies cough with sputum, Denies dyspnea, Denies excessive sputum, Denies hemoptysis, Denies home oxygen, Denies wheezing Gastrointestinal: Denies abdominal pain, Denies diarrhea, Denies nausea, Denies vomiting Genitourinary: Denies dysuria, Denies urinary retention Musculoskeletal: Denies frequent falls, Denies gait dysfunction Integumentary: Denies darkening of skin, reports rash, Denies wounds Neurological: Denies aphasia, Denies change in mentation, Denies change in speech, Denies confusion, Denies gait dysfunction, Denies seizures Psychiatric: Denies anxiety, Denies depression Objective - Vital Signs Vital signs: Vital Signs Temp 98.0 F 07/19/18 05:00 Pulse 97 07/19/18 05:00 Resp 18 07/19/18 05:00 BP 102/64 07/19/18 05:00 Pulse Ox 97 07/19/18 05:00 Intake & Output 07/18/18 07/19/18 07/19/18 18:59 06:59 18:59 Intake Total 550 2821.2 Balance 550 2821.2 Weight 90.718 kg Intake: Intake, IV Titration 550 2461.2 Amount Cefepime 2 gm In Sodium 100 100 Chloride 0.9% 100 ml @ 200 mls/hr IVPB Q8HR ANA MARIA Rx#:[id number] Mvi, Adult No.4 with Vit 200 1811.2 K 10 ml Thiamine 100 mg Folic Acid 1 mg In Sodium Chloride 0.9% 1,000 ml @ 100 mls/hr IV .BY DURATION ANA MARIA Rx#: [id number] Sodium Chloride 0.9% 1, 300 000 ml @ 100 mls/hr IV . BY DURATION ANA MARIA Rx#: [id number] Vancomycin 1,500 mg In 250 250 Sodium Chloride 0.9% 250 ml @ 125 mls/hr IVPB Q8H ANA MARIA Rx#:[id number] Oral 360 Other: Voiding Method Urinal Toilet # Voids 1 - Exam General appearance: average body habitus, cooperative, patient is resting comfortably in bed. - EENT Eyes: anicteric sclerae, EOMI, PERRLA, dentition normal, normal appearance ENT: hearing grossly normal, normal oropharynx - Neck Neck: normal ROM - Respiratory Respiratory: bilateral: CTA, negative: diminished, dullness, rales - Cardiovascular Rhythm: regular Heart sounds: normal: S1, S2 Abnormal Heart Sounds: no systolic murmur, no diastolic murmur, no rub, no S3 Gallop, no S4 Gallop, no click, no other - Gastrointestinal General gastrointestinal: normal bowel sounds, soft - Integumentary rubor noted neck line where trach collar is located, trach site normal in location Rash to the lower abdomen. - Neurologic Neurologic: CNII-XII intact - Musculoskeletal Musculoskeletal: gait normal, generalized weakness, strength equal bilaterally - Psychiatric Psychiatric: A&O x's 3, appropriate affect, intact judgment & insight - Labs CBC & Chem 7: 07/19/18 08:26 07/19/18 08:26 Labs: Abnormal Lab Results - Last 24 Hours (Table) 07/18/18 07/18/18 07/19/18 Range/Units 08:49 08:49 08:26 WBC 1.2 L* (3.8-10.6) k/uL RBC 2.40 L (4.30-5.90) m/uL Hgb 7.2 L (13.0-17.5) gm/dL Hct 21.4 L (39.0-53.0) % RDW 21.2 H (11.5-15.5) % Plt Count 73 L (150-450) k/uL Neutrophils # (Manual) 0.80 L (1.3-7.7) k/uL Lymphocytes # (Manual) 0.09 L (1.0-4.8) k/uL Nucleated RBCs 1 H (0-0) /100 WBC Creatinine (0.66-1.25) mg/dL Calcium (8.4-10.2) mg/dL Magnesium 1.5 L (1.6-2.3) mg/dL AST (17-59) U/L ALT (21-72) U/L Total Protein (6.3-8.2) g/dL Albumin (3.5-5.0) g/dL 07/19/18 Range/Units 08:26 WBC (3.8-10.6) k/uL RBC (4.30-5.90) m/uL Hgb (13.0-17.5) gm/dL Hct (39.0-53.0) % RDW (11.5-15.5) % Plt Count (150-450) k/uL Neutrophils # (Manual) (1.3-7.7) k/uL Lymphocytes # (Manual) (1.0-4.8) k/uL Nucleated RBCs (0-0) /100 WBC Creatinine 0.61 L (0.66-1.25) mg/dL Calcium 8.2 L (8.4-10.2) mg/dL Magnesium (1.6-2.3) mg/dL AST 11 L (17-59) U/L ALT 20 L (21-72) U/L Total Protein 5.1 L (6.3-8.2) g/dL Albumin 2.8 L (3.5-5.0) g/dL Microbiology - Last 24 Hours (Table) 07/17/18 13:00 Gram Stain - Final Sputum Sputum Culture - Final 07/16/18 16:00 Blood Culture - Preliminary Blood No Growth after 48 hours 07/16/18 23:23 Urine Culture - Final Urine,Clean Catch Assessment and Plan Plan: 1. Neutropenic fever, known history of squamous cell carcinoma of the base of the tongue, recently completed chemotherapy as of 07/06/2018, patient is on vancomycin IV and cefepime, consult were made with Dr. Stoll and Dr. Quezada, sputum cultures to be obtained to tracheostomy specimen via suctioning, blood cultures has been sent, influenza ANB negative by PCR, urinalysis negative 2. Squamous cell carcinoma at the base of the tongue, chemotherapy with cisplatin, completed 07/06/2018, started 05/25/2018, Dr. Stoll consult appreciated. Consult added for Dr. Tilley for removal of trach. 3. Pancytopenia. Oncology consult appreciated. Patient has been started on Xario. Continue to monitor CBC. 2. BPH without lower tract symptomatology 4. Dehydration with mild azotemia with ketonuria related to diminished oral intake 5. Hyperlipidemia not on any medication prior to admission 6. Hypertension, currently normotensive without medications, continue to monitor 7. GI prophylaxis Pepcid 8. DVT prophylaxis with Lovenox 40 mg every daily, monitor for platelets, this needs to be discontinued if there should count is under 50, no evidence of bleeding, moderate risk 9. Severe protein calorie malnutrition with significant weight loss. Dietitian following, TPN. PICC line to be placed to continue TPN. 10. Severe mucocytitis secondary to chemotherapy and radiation. Continue cool solution patient will use, antiviral and antifungal ordered by Dr. Quezaad. Doxepin added by oncology. Discharge plan: Return home Impression and plan of care have been directed as dictated by the signing physician. Shlelie Asif nurse practitioner acting as scribe for signing physician.
[2018-07-19] MEDS ORDERED: MVI, ADULT NO.4 WITH VIT K 10 ML, TRACE (CONC-1ML/DOSE) 1 ML in AMINO ACID 5%-D15W+LYTE... IV ONE ×3 (16:00)
--- NOTE | 2018-07-19 16:04 | IR ---
EXAMINATION TYPE: IR cvc insert >=5 years DATE OF EXAM: 07/19/2018 COMPARISON: NONE CLINICAL HISTORY: Needs long-term intravenous access for total parenteral nutrition PROCEDURE: After informed consent, the skin overlying the right brachial vein was localized with ultrasound and noted to be compressible and patent. An ultrasound image was obtained and submitted on the patient's chart. The overlying skin was prepped and draped and Lidocaine was used for local anesthesia. A sk in [place] was made with a scalpel. Access was gained to the vein under ultrasound guidance with a 21 g auge needle and a 0.018 inch wire was advanced. Access site was dilated with Peel-Away sheath and ca theter tailored to the appropriate length and advanced such that the distal tip is at the cavoatrial junction. Spot image was obtained verifying placement. Catheter was fixed to the skin and a sterile dressing was placed following hemostasis. Catheter was aspirated and flushed with saline. Patient was discharged in stable condition without complication. Maximal barrier technique is utilized. Ultr asound image is documented on the chart. Ultrasound used with sterile technique. Fluoro time and fluoroscopic images submitted to document procedure: 0.2 minutes fluoroscopy time, 15 4 intraoperative images document the procedure IMPRESSION: STATUS POST ULTRASOUND AND FLUOROSCOPIC GUIDED PICC LINE PLACEMENT, READY FOR USE. THIS PROCEDURE WAS PERFORMED BY THE UNDERSIGNED.
[2018-07-19 16:27] LABS: Ionized Calcium 4.9 mg/dL (4.5-5.3)
[2018-07-19] MEDS: FLUCONAZOLE IN NACL,ISO-OSM 200 MG in SALINE 1 100ML.BAG IVPB SCH (16:27)
[2018-07-19 16:37] LABS: Phosphorus 1.8 mg/dL (2.5-4.5)
[2018-07-19] MEDS: FAT EMULSION 20% 250 ML in EMPTY BAG 1 BAG IV SCH (16:39)
--- NOTE | 2018-07-19 17:50 | CONS ---
CONSULTATION REASON FOR CONSULTATION: Trach tube decannulation history. HISTORY OF PRESENT ILLNESS: This is a patient known to myself with a history of base of tongue carcinoma. He has finished his radiotherapy and chemotherapy but developed neutropenic fever and has been admitted. His white blood cell count is still only 1200. He has improved, but has had some issues with mucositis also. He is tolerating p.o. intake, but has sore throat. He has had no respiratory difficulty and his chest x-ray on admission was negative. He does have occasional sputum production, which he coughs through the trach tube, but also up through his mouth. His primary head and neck surgeon Dr. Reyes had contacted me earlier in the week and felt that he could be decannulated. I reviewed this with the patient today. PHYSICAL EXAM: The patient is in hospital bed. He is awake, alert, and oriented. He is conversant. He has no stridor. He talks well with the trach tube plugged. There is no stridor. HEENT: Head normocephalic and atraumatic. Ears bilaterally canals clear. Tympanic membranes unremarkable mobile. Nose shows no drainage or obstruction. Mouth and throat, oral cavity is moist. No erythema or exudate. Hypopharynx and larynx shows no gross tumor in the hypopharynx or larynx or base of tongue, although there is some moderate mucositis. Airway is patent. Vocal cord mobility is normal bilaterally. Neck shows post radiotherapy changes especially laterally. Trach tube is intact. I reviewed the option of decannulation and the patient does desire to proceed with this. The trach tube was removed and occlusal dressing was placed. I reviewed care of this with the patient and his nurse. 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 PLAN: The patient is decannulated today. He will need to keep pressure over the tracheostomy site with coughing or talking and the dressings will be changed at least daily until this heals. If there are questions, please free to contact me. Dr. Garcia and myself will be following the patient as an outpatient with routine interval head and neck exams. MMODL / IJN: [id number] /
--- NOTE | 2018-07-19 17:53 | PCN ---
PROCEDURE NOTE PREOPERATIVE DIAGNOSIS: History of base tongue squamous cell carcinoma. POSTOP DIAGNOSIS: History of base of tongue squamous cell carcinoma. PROCEDURE PERFORMED: Flexible laryngoscopy. ANESTHESIA: None. COMPLICATIONS: None. FINDINGS: Base of tongue appears grossly unremarkable, although does have moderate mucositis in the hypopharynx and larynx with normal vocal cord mobility. Patent airway. DESCRIPTION OF PROCEDURE: The patient was in his hospital bed and flexible laryngoscopy was performed through the right nasal cavity with systematic evaluation of the right nasal cavity, nasopharynx, oropharynx, hypopharynx and larynx with the above findings noted. Patient tolerated procedure well with no complications. MMODL / IJN: [id number] /
[2018-07-19 17:55] LABS: Glucose,Whole Blood 106 mg/dL (75-99)
[2018-07-19] MEDS: INSULIN ASPART (NovoLOG) 100 UNIT/ML VIAL SQ SCH (17:55)
[2018-07-19] MEDS: MAGNESIUM SULFATE-D5W PMX 1 GM in DEXTROSE/WATER 1 100ML.BAG IVPB SCH ×2 (20:46→22:38)
[2018-07-19] MEDS: FILGRASTIM-SNDZ 480 MCG/0.8 ML SYRINGE SQ SCH (22:08)
[2018-07-20 00:20] LABS: Glucose,Whole Blood 127 mg/dL (75-99)
[2018-07-20] MEDS: INSULIN ASPART (NovoLOG) 100 UNIT/ML VIAL SQ SCH ×4 (00:25→18:04)
[2018-07-20] MEDS: CEFEPIME 2 GM in SODIUM CHLORIDE 0.9% 100 ML IVPB SCH ×3 (00:26→15:54)
[2018-07-20] MEDS: HYDROmorphone 0.5 MG/0.5 ML SYRINGE IVP PRN ×7 (01:28→21:19)
[2018-07-20] MEDS: VANCOMYCIN 1,500 MG in SODIUM CHLORIDE 0.9% 250 ML IVPB SCH ×3 (02:16→18:46)
[2018-07-20 06:03] LABS: Glucose,Whole Blood 117 mg/dL (75-99)
[2018-07-20] MEDS: SODIUM CHLORIDE 0.9% 1,000 ML IV SCH ×3 (07:24→15:27)
[2018-07-20] MEDS ORDERED: VANCOMYCIN TROUGH DUE 1 EACH MISC MISCELLANE ONE (09:00)
[2018-07-20 09:34] LABS: Anisocytosis Moderate; MCH 29.9 pg (25.0-35.0); MCHC 32.6 g/dL (31.0-37.0); MCV 91.5 fL (80.0-100.0); Macrocytosis Slight; Mean Platelet Volume 7.1; Poikilocytosis Slight; RBC 2.18 m/uL (4.30-5.90); RDW 21.3 % (11.5-15.5)
[2018-07-20 09:42] LABS: WBC 1.4 k/uL (3.8-10.6)
[2018-07-20 09:47] LABS: HGB 6.5 gm/dL (13.0-17.5)
[2018-07-20 09:48] LABS: HCT 19.9 % (39.0-53.0); Platelet Count 75 k/uL (150-450)
[2018-07-20 09:54] LABS: Blood Urea Nitrogen 9 mg/dL (9-20); Calcium 7.6 mg/dL (8.4-10.2); Chloride 104 mmol/L (98-107); Glucose 105 mg/dL (74-99); Magnesium 1.6 mg/dL (1.6-2.3); Phosphorus 1.6 mg/dL (2.5-4.5); Potassium 3.3 mmol/L (3.5-5.1); Sodium 138 mmol/L (137-145)
[2018-07-20] MEDS: valACYclovir 500 MG TAB PO SCH ×2 (09:57→21:16)
[2018-07-20] MEDS: LORATADINE 10 MG TAB PO SCH (09:57)
[2018-07-20] MEDS: MAG HYDROX/AL HYDROX/SIMETH 30 ML, LIDOCAINE VISCOUS 30 ML, diphenhydrAMINE ELIXIR 75 M... PO SCH ×15 (09:58→21:26)
[2018-07-20] MEDS: NYSTATIN 100,000 UNIT/GM POWD 15 GM TOPICAL SCH ×3 (10:02→21:21)
[2018-07-20 10:07] LABS: Ionized Calcium 4.6 mg/dL (4.5-5.3)
[2018-07-20 10:54] LABS: Anion Gap 7 mmol/L; Carbon Dioxide 27 mmol/L (22-30)
--- NOTE | 2018-07-20 10:54 | P.PN ---
Subjective Progress Note Date: 07/20/18 Principal diagnosis: head and neck ca - Mucocytitis Hemoglobin 6.5, WBC is showing some recovery today. TPN has been ordered, picc line placed, platlets are stable. He is able to tolerate small amounts of liquids and food. Objective - Vital Signs Vital signs: Vital Signs Temp 98.5 F 07/20/18 05:00 Pulse 95 07/20/18 05:00 Resp 16 07/20/18 05:00 BP 125/68 07/20/18 05:00 Pulse Ox 100 07/20/18 05:00 Intake & Output 07/19/18 07/20/18 07/20/18 18:59 06:59 18:59 Intake Total 900 1809 Balance 900 1809 Weight 90.718 kg 92.249 kg Intake: Intake, IV Titration 900 1559 Amount Cefepime 2 gm In Sodium 100 Chloride 0.9% 100 ml @ 200 mls/hr IVPB Q8HR [facility] Rx#:[id number] Fat Emulsion 20% 250 ml 189 In Empty Bag 1 bag @ 21 mls/hr IV DAILY@1600 [facility] Rx#:[id number] Magnesium Sulfate-D5w Pmx 200 1 gm In Dextrose/Water 1 100ml.bag @ 100 mls/hr IVPB Q1H [facility] Rx#: [id number] Mvi, Adult No.4 with Vit 270 K 10 ml Trace (Conc-1Ml/ Dose) 1 ml In Amino Acid 5%-D15w+Lytes*E* 1,000 ml @ 30 mls/hr IV .Q24H ONE Rx#:[id number] Sodium Chloride 0.9% 1, 550 400 000 ml @ 100 mls/hr IV . BY DURATION [facility] Rx#: [id number] Sodium Chloride 0.9% 1, 500 000 ml @ 100 mls/hr IV . Q10H [facility] Rx#:[id number] Vancomycin 1,500 mg In 250 Sodium Chloride 0.9% 250 ml @ 125 mls/hr IVPB Q8H [facility] Rx#:[id number] Oral 250 Other: Voiding Method Toilet # Voids 1 - Exam Gen: Alert and oriented, NAD Head NC, NT Mouth: Mucocytitis, canker sores, erythema, component thrush, edema. Neck: Erythema skin outside from radiation, no peeling or open areas to outside area. Trach Lung: CTA Bilatreral No increased effort Heart: RRR, S1s2 Abdomen: Soft, ND, NT Extremities: No edema, Pedal Pulses palpable - Labs CBC & Chem 7: 07/20/18 08:26 07/20/18 08:26 Labs: Abnormal Lab Results - Last 24 Hours (Table) 07/19/18 07/19/18 07/19/18 Range/Units 08:26 15:33 17:54 WBC (3.8-10.6) k/uL RBC (4.30-5.90) m/uL Hgb (13.0-17.5) gm/dL Hct (39.0-53.0) % RDW (11.5-15.5) % Plt Count (150-450) k/uL Neutrophils # (Manual) 0.80 L (1.3-7.7) k/uL Lymphocytes # (Manual) 0.12 L (1.0-4.8) k/uL Potassium (3.5-5.1) mmol/L Creatinine (0.66-1.25) mg/dL Glucose (74-99) mg/dL POC Glucose (mg/dL) 106 H (75-99) mg/dL Calcium (8.4-10.2) mg/dL Phosphorus 1.8 L (2.5-4.5) mg/dL 07/20/18 07/20/18 07/20/18 Range/Units 00:13 05:59 08:26 WBC (3.8-10.6) k/uL RBC (4.30-5.90) m/uL Hgb (13.0-17.5) gm/dL Hct (39.0-53.0) % RDW (11.5-15.5) % Plt Count (150-450) k/uL Neutrophils # (Manual) (1.3-7.7) k/uL Lymphocytes # (Manual) (1.0-4.8) k/uL Potassium 3.3 L (3.5-5.1) mmol/L Creatinine 0.61 L (0.66-1.25) mg/dL Glucose 105 H (74-99) mg/dL POC Glucose (mg/dL) 127 H 117 H (75-99) mg/dL Calcium 7.6 L (8.4-10.2) mg/dL Phosphorus 1.6 L (2.5-4.5) mg/dL 07/20/18 Range/Units 08:26 WBC 1.4 L* (3.8-10.6) k/uL RBC 2.18 L (4.30-5.90) m/uL Hgb 6.5 L* (13.0-17.5) gm/dL Hct 19.9 L* (39.0-53.0) % RDW 21.3 H (11.5-15.5) % Plt Count 75 L (150-450) k/uL Neutrophils # (Manual) (1.3-7.7) k/uL Lymphocytes # (Manual) (1.0-4.8) k/uL Potassium (3.5-5.1) mmol/L Creatinine (0.66-1.25) mg/dL Glucose (74-99) mg/dL POC Glucose (mg/dL) (75-99) mg/dL Calcium (8.4-10.2) mg/dL Phosphorus (2.5-4.5) mg/dL Microbiology - Last 24 Hours (Table) 07/16/18 16:00 Blood Culture - Preliminary Blood No Growth after 72 hours 07/17/18 13:00 Gram Stain - Final Sputum Sputum Culture - Final Assessment and Plan Plan: Assessment and Recommendations: Severe Mucocytitis related to treatment from Chemotherapy and Radiation - Failed Oral Rinses and PO Dex as outpatient although did not adhere to them as directed for taste - Antiviral and Antifungals per Infectious disease - PO Doxepin, crush and mix in water rinse and spit/swallow at hs Dysphagia: - Secondary to above Pancytopenia Secondary to treatment with chemo and radiation - Zarxio 480 sub cut daily for immune support - Monitor daily CBC with Differential - Supportive Transfusions if needed - Antibiotics per Dr. Quezada, ID - Transfuse platlets less than 10, or hemoglobin less than 7 - Hemoglobin 6.5 - Transfuse one unit of PRBC today Squamous Cell Carcinoma of Head and Neck - Status Post 6 weeks of weekly Cisplatin concurrent radiation Moderate Protein Calorie Malnutrition - Secondary to Dysphageia - Add MVI to IV Bag - Corrugator Helper following. - ok for TPN (per Dr. Stoll) for short term and if ok ID, with prolonged neutropenia and hospitalization, should improve dysphagia when neutropenia resol ves - Blood cultures are negative at his time and he remains afebrile Hypokalemia/HypoMagnesia: - Monitor daily and Supp PRN Plan: - Continue aggressive supportive care - Allow count recovery and healing of oral pharynx and consumption of po intake - Re-education to patient - TPN initiation, ? home for short term with TPN? - POtassium Supp today - Transfusion one unit PRBC today Physician Attest: I have completed the full history and physical and agree with above dictation by Keara Richards, I have developed the completed impression and plan, above dictated as a scribe.
[2018-07-20] MEDS: MAGNESIUM SULFATE-D5W PMX 1 GM in DEXTROSE/WATER 1 100ML.BAG IVPB SCH ×2 (12:06→21:17)
[2018-07-20 12:09] LABS: Glucose,Whole Blood 129 mg/dL (75-99)
[2018-07-20 12:27] LABS: Band Neutrophils % 4 %; Eosinophils # (M) 0.04 k/uL (0-0.7); Lymphocytes # (M) 0.08 k/uL (1.0-4.8); Monocytes # (M) 0.21 k/uL (0-1.0); Neutrophils % (M) 72 %; Nucleated Red Blood Cells 1 /100 WBC (0-0); Total Cells Counted 100
[2018-07-20 12:28] LABS: Polychromasia Present
--- NOTE | 2018-07-20 14:39 | P.PN ---
Subjective Progress Note Date: 07/20/18 This is a pleasant 47-year-old gentleman patient of Dr. 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 Stoll. He didn't have any tongue resection for this. however he underwent cisplatin started May 25, and has completed chemotherapy. He goes every , his last chemotherapy was 06/28/2018. He currently is on radiation treatment, with Dr. Zamora, last treatment was 06/11/2018. His initial tongue cancer was also noted to be positive in the lymph node based on CT, he comes in now with fever for one day 100.2 in er, cough of one day, the patient has a trach collar that is not blistered and does not have any new rashes, no recent foreign travels, no sick contacts at home. he denies any GI complaints he was last seen in the office 08/02/2017, diagnosed to have BPH without lower tract symptomatology, hypertension, hyperlipidemia, patient is not on any home medications. He does have mucus production trace trach collar and some cough, clear white sputum. Emergency room laboratory showed WBC count of 1.0, platelet count of 59, creatinine of 0.84, normal liver function tests, albumin and protein is a little bit on the lower side, lactic acid off 0.7, urinalysis normal except for ketones, and dehydration. influenza test was negative chest x-ray shows no acute pulmonary disease no active infiltrates, patient was admitted for neutropenic fever with WBC count of 1.0, no absolute neutrophil count for review, consult was made with Dr. Stoll, and Dr. Quezada for pancytopenia with neutropenic fever, main source unknown, most likely respiratory tract, we're going to obtain sputum cultures from the aspirate to deep suctioning, he started on vancomycin and cefepime. Inspection of the skin fails to reveal any rashes or open sores including the neck collar 07/18: Patient has been seen by Dr. Quezada and started on fluconazole IV and Valtrex. He is to continue on cefepime and vancomycin. Oncology has started Sinequan, Xario. Repeat lab work reveals WBC 1.1, hemoglobin 7.1, platelet count 71. Creatinine 0.69, CO2 21, calcium 8.1, magnesium 1.5. Patient has been started on TPN. He is on clear liquid diet and will be advanced to full liquid diet. He is complaining of rash of the lower abdomen that is a little itchy. He has used in the groin. Patient is refused to take cool solution. He states that Dr. Kothari will be removing his trach. Temperature maximum 100.0, heart rate 90s to 108, blood pressure 122/66, pulse ox 98% on room air. 07/19: The patient continues to have difficulty with swallowing with sore mouth and throat. Rash is about the same from yesterday and states it's a little itchy. Patient is to have a PICC line placed for TPN. We will add in a consult for Dr. Kothari for removal of trach. No medication changes made today. Patient's been afebrile, heart rate 97, blood pressure 1 2/64, pulse ox 97% on room air. Repeat lab work reveals WBC 1.2, hemoglobin 7.2, platelet count 73, creatinine 0.61. Electrolytes within normal limits. 07/20: Patient was seen by Dr. Kothari and he performed a flexible laryngeal scope be finding the base the tongue grossly unremarkable although moderate mucositis in the hypopharynx and larynx with normal vocal cord mobility. Patent airway. Patient has been decannulated and keep pressure over the tracheostomy site with coughing or talking and change dressings daily until healed. A PICC line was placed yesterday. Patient is on IV fluids with multivitamin. He is currently eating less than 25%. Patient remains afebrile, heart rate in the 90s, blood pressure 125/68 and pulse ox 100% on room air. Repeat lab work reveals WBC of 1.4, hemoglobin 6.5, platelet count 75, potassium 3.3. Patient states that he is hungry and would like to eat. It still hurts when he swallowing but he is trying to eat more each day. He was up to shower. No diarrhea. Oncology has ordered for 1 unit of packed RBCs. Anticipate he will be ready for discharge over the weekend. Review of Systems Constitutional: Reports anorexia, Reports chills, Reports fever, Reports lethargy, Reports poor appetite, Reports weight loss Ears, nose, mouth and throat: Reports odynophagia, Reports sore throat, reports mouth pain Cardiovascular: Denies dyspnea on exertion, Denies edema, Denies irregular heart beat, Denies leg edema, Denies syncope Respiratory: Reports cough, Denies congestion, Denies cough with sputum, Denies dyspnea, Denies excessive sputum, Denies hemoptysis, Denies home oxygen, Denies wheezing Gastrointestinal: Denies abdominal pain, Denies diarrhea, Denies nausea, Denies vomiting. Denies loss of appetite. Genitourinary: Denies dysuria, Denies urinary retention Musculoskeletal: Denies frequent falls, Denies gait dysfunction Integumentary: Denies darkening of skin, reports rash, Denies wounds Neurological: Denies aphasia, Denies change in mentation, Denies change in speech, Denies confusion, Denies gait dysfunction, Denies seizures Psychiatric: Denies anxiety, Denies depression Objective - Vital Signs Vital signs: Vital Signs Temp 98.5 F 07/20/18 05:00 Pulse 95 07/20/18 05:00 Resp 16 07/20/18 05:00 BP 125/68 07/20/18 05:00 Pulse Ox 100 07/20/18 05:00 Intake & Output 07/19/18 07/20/18 07/20/18 18:59 06:59 18:59 Intake Total 900 1809 Balance 900 1809 Weight 90.718 kg 92.249 kg Intake: Intake, IV Titration 900 1559 Amount Cefepime 2 gm In Sodium 100 Chloride 0.9% 100 ml @ 200 mls/hr IVPB Q8HR [facility] Rx#:[id number] Fat Emulsion 20% 250 ml 189 In Empty Bag 1 bag @ 21 mls/hr IV DAILY@1600 [facility] Rx#:[id number] Magnesium Sulfate-D5w Pmx 200 1 gm In Dextrose/Water 1 100ml.bag @ 100 mls/hr IVPB Q1H [facility] Rx#: [id number] Mvi, Adult No.4 with Vit 270 K 10 ml Trace (Conc-1Ml/ Dose) 1 ml In Amino Acid 5%-D15w+Lytes*E* 1,000 ml @ 30 mls/hr IV .Q24H ONE Rx#:[id number] Sodium Chloride 0.9% 1, 550 400 000 ml @ 100 mls/hr IV . BY DURATION [facility] Rx#: [id number] Sodium Chloride 0.9% 1, 500 000 ml @ 100 mls/hr IV . Q10H [facility] Rx#:[id number] Vancomycin 1,500 mg In 250 Sodium Chloride 0.9% 250 ml @ 125 mls/hr IVPB Q8H [facility] Rx#:[id number] Oral 250 Other: Voiding Method Toilet # Voids 1 - Exam General appearance: average body habitus, cooperative, patient is resting comfortably in bed. Patient's mother is at bedside. - EENT Eyes: anicteric sclerae, EOMI, PERRLA, dentition normal, normal appearance ENT: hearing grossly normal, normal oropharynx - Neck Neck: normal ROM - Respiratory Respiratory: bilateral: CTA, negative: diminished, dullness, rales - Cardiovascular Rhythm: regular Heart sounds: normal: S1, S2 Abnormal Heart Sounds: no systolic murmur, no diastolic murmur, no rub, no S3 Gallop, no S4 Gallop, no click, no other - Gastrointestinal General gastrointestinal: normal bowel sounds, soft - Integumentary rubor noted neck line where trach collar is located, trach site normal in loca tion Rash is improving, less red to the lower abdomen. - Neurologic Neurologic: CNII-XII intact - Musculoskeletal Musculoskeletal: gait normal, generalized weakness, strength equal bilaterally - Psychiatric Psychiatric: A&O x's 3, appropriate affect, intact judgment & insight - Labs CBC & Chem 7: 07/20/18 08:26 07/20/18 08:26 Labs: Abnormal Lab Results - Last 24 Hours (Table) 07/19/18 07/19/18 07/19/18 Range/Units 08:26 15:33 17:54 WBC (3.8-10.6) k/uL RBC (4.30-5.90) m/uL Hgb (13.0-17.5) gm/dL Hct (39.0-53.0) % RDW (11.5-15.5) % Plt Count (150-450) k/uL Neutrophils # (Manual) 0.80 L (1.3-7.7) k/uL Lymphocytes # (Manual) 0.12 L (1.0-4.8) k/uL Potassium (3.5-5.1) mmol/L Creatinine (0.66-1.25) mg/dL Glucose (74-99) mg/dL POC Glucose (mg/dL) 106 H (75-99) mg/dL Calcium (8.4-10.2) mg/dL Phosphorus 1.8 L (2.5-4.5) mg/dL 07/20/18 07/20/18 07/20/18 Range/Units 00:13 05:59 08:26 WBC (3.8-10.6) k/uL RBC (4.30-5.90) m/uL Hgb (13.0-17.5) gm/dL Hct (39.0-53.0) % RDW (11.5-15.5) % Plt Count (150-450) k/uL Neutrophils # (Manual) (1.3-7.7) k/uL Lymphocytes # (Manual) (1.0-4.8) k/uL Potassium 3.3 L (3.5-5.1) mmol/L Creatinine 0.61 L (0.66-1.25) mg/dL Glucose 105 H (74-99) mg/dL POC Glucose (mg/dL) 127 H 117 H (75-99) mg/dL Calcium 7.6 L (8.4-10.2) mg/dL Phosphorus 1.6 L (2.5-4.5) mg/dL 07/20/18 Range/Units 08:26 WBC 1.4 L* (3.8-10.6) k/uL RBC 2.18 L (4.30-5.90) m/uL Hgb 6.5 L* (13.0-17.5) gm/dL Hct 19.9 L* (39.0-53.0) % RDW 21.3 H (11.5-15.5) % Plt Count 75 L (150-450) k/uL Neutrophils # (Manual) (1.3-7.7) k/uL Lymphocytes # (Manual) (1.0-4.8) k/uL Potassium (3.5-5.1) mmol/L Creatinine (0.66-1.25) mg/dL Glucose (74-99) mg/dL POC Glucose (mg/dL) (75-99) mg/dL Calcium (8.4-10.2) mg/dL Phosphorus (2.5-4.5) mg/dL Microbiology - Last 24 Hours (Table) 07/16/18 16:00 Blood Culture - Preliminary Blood No Growth after 72 hours 07/17/18 13:00 Gram Stain - Final Sputum Sputum Culture - Final Assessment and Plan Plan: 1. Neutropenic fever, known history of squamous cell carcinoma of the base of the tongue, recently completed chemotherapy as of 07/06/2018, patient is on vancomycin IV and cefepime, consult were made with Dr. Stoll and Dr. Quezada. Cultures in progress 2. Squamous cell carcinoma at the base of the tongue, chemotherapy with cisplatin, completed 07/06/2018, started 05/25/2018, Dr. Stoll consult appreciated. Consult added for Dr. Tilley decannulated and performed laryngeoscopy. 3. Pancytopenia. Oncology consult appreciated. Patient has been started on Xario. Continue to monitor CBC. 2. BPH without lower tract symptomatology 4. Dehydration with mild azotemia with ketonuria related to diminished oral intake 5. Hyperlipidemia not on any medication prior to admission 6. Hypertension, currently normotensive without medications, continue to monitor 7. GI prophylaxis Pepcid 8. DVT prophylaxis with Lovenox 40 mg every daily, monitor for platelets, this needs to be discontinued if there should count is under 50, no evidence of bleeding, moderate risk 9. Severe protein calorie malnutrition with significant weight loss. Dietitian following, TPN. PICC line to be placed to continue TPN. 10. Severe mucocytitis secondary to chemotherapy and radiation. Continue cool solution patient will use, antiviral and antifungal ordered by Dr. Quezada. Doxepin added by oncology. 11. Acute anemia secondary to cancer and chemotherapy. Patient is scheduled for transfusion 1 unit of packed RBCs. Discharge plan: Return home Impression and plan of care have been directed as dictated by the signing physician. Shellie Asif nurse practitioner acting as scribe for signing physician.
[2018-07-20] MEDS: FAT EMULSION 20% 250 ML in EMPTY BAG 1 BAG IV SCH (15:55)
[2018-07-20] MEDS ORDERED: 1: MVI, ADULT NO.4 WITH VIT K 10 ML, TRACE (CONC-1ML/DOSE) 1 ML in AMINO ACID 5%-D15W+LY IV SCH ×3 (16:00)
[2018-07-20] MEDS: FLUCONAZOLE IN NACL,ISO-OSM 200 MG in SALINE 1 100ML.BAG IVPB SCH (17:06)
[2018-07-20 17:37] LABS: Glucose,Whole Blood 161 mg/dL (75-99)
[2018-07-20] MEDS: POTASSIUM PHOSPHATE 10 MMOL in SODIUM CHLORIDE 0.9% 100 ML IV SCH ×2 (19:31→22:29)
[2018-07-20] MEDS: FILGRASTIM-SNDZ 480 MCG/0.8 ML SYRINGE SQ SCH (22:01)
--- NOTE | 2018-07-20 22:57 | P.PN ---
Subjective Progress Note Date: 07/20/18 This is a 47-year-old male patient under the care of of Dr. Stoll and Dr. 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 Patient was diagnosed in June of this year and has been on cisplatin from May 25 through July 06. He states he has now completed his course of chemotherapy. His last radiation treatment was on 06/11/2018. Tracheostomy was placed April this year. His temperature maximum was 100.2 and cough. He does have difficulty swallowing and throat pain as well as concern for dehydration as he is not able to tolerate significant amount of oral fluids and came into the emergency center for evaluation. WBC 1, hemoglobin 10.5 and platelet count 59. Creatinine 0.84, albumin 3.5. Influenza testing was negative. Urinalysis was 4+ ketones, nitrate and leukoesterase negative. Chest x-ray showed no acute cardiopulmonary process. Patient was admitted to the [facility] floor for neutropenic fever. Dr. Stoll is also on consult. He is currently on cefepime and vancomycin. Blood, urine, sputum or status received. 07/18/2018 the patient remains miserable. Oral cavity is still uncomfortable and when he attempts to eat or ingesting any food or protein supplements he has intense burning and discomfort. Does not do well with any of the topical therapies to improve his discomforts. He remains miserable although hydrated by IV fluids. We have asked him if he would accept a PEG tube and the answer is no at this point in time. A supposed to be decannulated from his tracheostomy and this is trying to be arranged also. This may improve some of his discomfort and help his swallowing. Leukopenia persists fever improved 07/20/2018 with the initiation of TPN and lipids the patient is feeling better today. His absolute neutrophil count has increased to 1.0 and he does not feel so weak. He has noted does not want a PEG tube. He is afebrile today. Objective - Vital Signs Vital signs: Vital Signs Temp 98.4 F 07/20/18 21:00 Pulse 87 07/20/18 21:00 Resp 16 07/20/18 21:00 BP 105/67 07/20/18 21:00 Pulse Ox 97 07/20/18 21:00 Intake & Output 07/20/18 07/20/18 07/21/18 06:59 18:59 06:59 Intake Total 1809 1350 Balance 1809 1350 Weight 92.249 kg Intake: Intake, IV Titration 1559 1040 Amount Fat Emulsion 20% 250 ml 189 In Empty Bag 1 bag @ 21 mls/hr IV DAILY@1600 [facility] Rx#:[id number] Magnesium Sulfate-D5w Pmx 200 1 gm In Dextrose/Water 1 100ml.bag @ 100 mls/hr IVPB Q1H [facility] Rx#: [id number] Magnesium Sulfate-D5w Pmx 100 1 gm In Dextrose/Water 1 100ml.bag @ 100 mls/hr IVPB Q1H [facility] Rx#: [id number] Mvi, Adult No.4 with Vit 270 K 10 ml Trace (Conc-1Ml/ Dose) 1 ml In Amino Acid 5%-D15w+Lytes*E* 1,000 ml @ 30 mls/hr IV .Q24H [facility] Rx#:[id number] Mvi, Adult No.4 with Vit 240 K 10 ml Trace (Conc-1Ml/ Dose) 1 ml In Amino Acid 5%-D15w+Lytes*E* 1,000 ml @ 90 mls/hr IV .BY [facility] Rx#: [id number] Sodium Chloride 0.9% 1, 400 000 ml @ 100 mls/hr IV . [facility] Rx#: [id number] Sodium Chloride 0.9% 1, 500 450 000 ml @ 100 mls/hr IV . Q10H [facility] Rx#:[id number] Vancomycin 1,500 mg In 250 Sodium Chloride 0.9% 250 ml @ 125 mls/hr IVPB Q8H [facility] Rx#:[id number] Oral 250 Blood Product 310 Rc Irr As1 Unit 310 [id number] Other: Voiding Method Toilet # Voids 1 - Exam Gen: This is a 47-year-old male. He is resting in bed. Noted cough with white sputum production from trach. HEENT: Head is atraumatic, normocephalic. Pupils equal, round. Sclerae is anicteric. NECK: Supple. Tracheotomy and trach collar in place. there is evidence of some the radiation dermatitis to the neck which is irritated from the trach [place] LUNGS: Clear to auscultation. No wheezes or rhonchi. No intercostal retractions. HEART: Regular rate and rhythm. No murmur. ABDOMEN: Soft. Bowel sounds are present. No masses. No tenderness. EXTREMITIES: No pedal edema. No calf tenderness. NEUROLOGICAL: Patient is awake, alert and oriented x3. Cranial nerves 2 through 12 are grossly intact. - Labs CBC & Chem 7: 07/20/18 08:26 07/20/18 08:26 Labs: Abnormal Lab Results - Last 24 Hours (Table) 07/20/18 07/20/18 07/20/18 Range/Units 00:13 05:59 08:26 WBC (3.8-10.6) k/uL RBC (4.30-5.90) m/uL Hgb (13.0-17.5) gm/dL Hct (39.0-53.0) % RDW (11.5-15.5) % Plt Count (150-450) k/uL Neutrophils # (Manual) (1.3-7.7) k/uL Lymphocytes # (Manual) (1.0-4.8) k/uL Nucleated RBCs (0-0) /100 WBC Potassium 3.3 L (3.5-5.1) mmol/L Creatinine 0.61 L (0.66-1.25) mg/dL Glucose 105 H (74-99) mg/dL POC Glucose (mg/dL) 127 H 117 H (75-99) mg/dL Calcium 7.6 L (8.4-10.2) mg/dL Phosphorus 1.6 L (2.5-4.5) mg/dL Crossmatch 07/20/18 07/20/18 07/20/18 Range/Units 08:26 11:15 12:08 WBC 1.4 L* (3.8-10.6) k/uL RBC 2.18 L (4.30-5.90) m/uL Hgb 6.5 L* (13.0-17.5) gm/dL Hct 19.9 L* (39.0-53.0) % RDW 21.3 H (11.5-15.5) % Plt Count 75 L (150-450) k/uL Neutrophils # (Manual) 1.00 L (1.3-7.7) k/uL Lymphocytes # (Manual) 0.08 L (1.0-4.8) k/uL Nucleated RBCs 1 H (0-0) /100 WBC Potassium (3.5-5.1) mmol/L Creatinine (0.66-1.25) mg/dL Glucose (74-99) mg/dL POC Glucose (mg/dL) 129 H (75-99) mg/dL Calcium (8.4-10.2) mg/dL Phosphorus (2.5-4.5) mg/dL Crossmatch See Detail 07/20/18 Range/Units 17:36 WBC (3.8-10.6) k/uL RBC (4.30-5.90) m/uL Hgb (13.0-17.5) gm/dL Hct (39.0-53.0) % RDW (11.5-15.5) % Plt Count (150-450) k/uL Neutrophils # (Manual) (1.3-7.7) k/uL Lymphocytes # (Manual) (1.0-4.8) k/uL Nucleated RBCs (0-0) /100 WBC Potassium (3.5-5.1) mmol/L Creatinine (0.66-1.25) mg/dL Glucose (74-99) mg/dL POC Glucose (mg/dL) 161 H (75-99) mg/dL Calcium (8.4-10.2) mg/dL Phosphorus (2.5-4.5) mg/dL Crossmatch Microbiology - Last 24 Hours (Table) 07/16/18 16:00 Blood Culture - Preliminary Blood No Growth after 96 hours Laboratory Results WBC 1.4 k/uL (3.8-10.6) L* 07/20/18 08:26 RBC 2.18 m/uL (4.30-5.90) L 07/20/18 08:26 Hgb 6.5 gm/dL (13.0-17.5) L* 07/20/18 08:26 Hct 19.9 % (39.0-53.0) L* 07/20/18 08:26 MCV 91.5 fL (80.0-100.0) 07/20/18 08:26 MCH 29.9 pg (25.0-35.0) 07/20/18 08:26 MCHC 32.6 g/dL (31.0-37.0) 07/20/18 08:26 RDW 21.3 % (11.5-15.5) H 07/20/18 08:26 Plt Count 75 k/uL (150-450) L 07/20/18 08:26 Neutrophils % (Manual) 72 % 07/20/18 08:26 Band Neutrophils % 4 % 07/20/18 08:26 Lymphocytes % (Manual) 6 % 07/20/18 08:26 Monocytes % (Manual) 15 % 07/20/18 08:26 Eosinophils % (Manual) 3 % 07/20/18 08:26 Neutrophils # (Manual) 1.00 k/uL (1.3-7.7) L 07/20/18 08:26 Lymphocytes # (Manual) 0.08 k/uL (1.0-4.8) L 07/20/18 08:26 Monocytes # (Manual) 0.21 k/uL (0-1.0) 07/20/18 08:26 Eosinophils # (Manual) 0.04 k/uL (0-0.7) 07/20/18 08:26 Nucleated RBCs 1 /100 WBC (0-0) H 07/20/18 08:26 Differential Comment 07/16/18 14:15 Manual Slide Review Performed 07/19/18 08:26 Polychromasia Present 07/20/18 08:26 Hyperchromasia Slight 07/16/18 14:15 Poikilocytosis Slight 07/20/18 08:26 Anisocytosis Moderate 07/20/18 08:26 Microcytosis Slight 07/16/18 14:15 Macrocytosis Slight 07/20/18 08:26 Sodium 138 mmol/L (137-145) 07/20/18 08:26 Potassium 3.3 mmol/L (3.5-5.1) L 07/20/18 08:26 Chloride 104 mmol/L (98-107) 07/20/18 08:26 Carbon Dioxide 27 mmol/L (22-30) 07/20/18 08:26 Anion Gap 7 mmol/L 07/20/18 08:26 BUN 9 mg/dL (9-20) 07/20/18 08:26 Creatinine 0.61 mg/dL (0.66-1.25) L 07/20/18 08:26 Est GFR (CKD-EPI)AfAm >90 (>60 ml/min/1.73 sqM) 07/20/18 08:26 Est GFR (CKD-EPI)NonAf >90 (>60 ml/min/1.73 sqM) 07/20/18 08:26 Glucose 105 mg/dL (74-99) H 07/20/18 08:26 POC Glucose (mg/dL) 161 mg/dL (75-99) H 07/20/18 17:36 POC Glu [employer]otive [employer] Gladys Wills 07/20/18 17:36 Plasma Lactic Acid Jaylen 0.7 mmol/L (0.7-2.0) 07/16/18 16:00 Calcium 7.6 mg/dL (8.4-10.2) L 07/20/18 08:26 Ionized Calcium Britany 4.6 mg/dL (4.5-5.3) 07/20/18 08:26 Phosphorus 1.6 mg/dL (2.5-4.5) L 07/20/18 08:26 Magnesium 1.6 mg/dL (1.6-2.3) 07/20/18 08:26 Total Bilirubin 1.1 mg/dL (0.2-1.3) 07/19/18 08:26 AST 11 U/L (17-59) L 07/19/18 08:26 ALT 20 U/L (21-72) L 07/19/18 08:26 Alkaline Phosphatase 58 U/L (38-126) 07/19/18 08:26 Total Protein 5.1 g/dL (6.3-8.2) L 07/19/18 08:26 Albumin 2.8 g/dL (3.5-5.0) L 07/19/18 08:26 Triglycerides 124 mg/dL (<150) 07/19/18 15:33 Urine Color Yellow 07/16/18 23:23 Urine Appearance Clear (Clear) 07/16/18 23:23 Urine pH 5.5 (5.0-8.0) 07/16/18 23:23 Ur Specific [place] 1.027 (1.001-1.035) 07/16/18 23:23 Urine Protein Trace (Negative) H 07/16/18 23:23 Urine Glucose (UA) Negative (Negative) 07/16/18 23:23 Urine Ketones 4+ (Negative) H 07/16/18 23:23 Urine Blood Negative (Negative) 07/16/18 23:23 Urine Nitrite Negative (Negative) 07/16/18 23:23 Urine Bilirubin Negative (Negative) 07/16/18 23:23 Urine Urobilinogen <2.0 mg/dL (<2.0) 07/16/18 23:23 Ur Leukocyte Esterase Negative (Negative) 07/16/18 23:23 Vancomycin Trough 17.5 ug/mL 07/20/18 08:26 Serum DESIREE Interpret SEE NOTE 07/16/18 14:15 Influenza Type A RNA Not Detected (Not Detectd) 07/16/18 16:04 Influenza Type B (PCR) Not Detected (Not Detectd) 07/16/18 16:04 Blood Type A Negative 07/20/18 11:15 Blood Type Confirm A Negative 07/20/18 08:26 Blood Type Recheck CABO Indicated 07/20/18 11:15 Antibody Screen NEGATIVE 07/20/18 11:15 Crossmatch See Detail 07/20/18 11:15 Spec Expiration Date 07/23/2018 - 2315 07/20/18 11:15 Microbiology 07/16/18 16:00 Blood Blood Culture - Preliminary No Growth after 96 hours 07/17/18 13:00 Sputum Gram Stain - Final 07/17/18 13:00 Sputum Sputum Culture - Final 07/16/18 23:23 Urine,Clean Catch Urine Culture - Final Assessment and Plan (1) Neutropenic fever Narrative/Plan: This pleasant 47-year-old male is history of squamous cell carcinoma the tongue, HPV related, status post his course of radiation therapy that has just finished and his chemotherapy. Tracheostomy was required. However has not received a feeding tube. In relates that he's lost about 20 pounds and is having difficulty eating. Taste is poor and oral cavity and swallowing is uncomfortable. The case is discussed with the oncologist. Patient has evidence of mucositis of chemotherapy and radiation induced which is interfering with his ability to eat. Try to offer him comfort foods as much as he can tolerate. He does have relative neutropenia and with his fever and illness antibiotic therapy is initiated with cefepime and Vanco will also initiate oral antiviral therapy and antifungal therapy with fluconazole for now until there is further data. He has maintained a normal albumin but total protein is low. Suggest any attempts further nutritional supplements to improve his protein intake. Oral steroid rinse will be utilized to try to improve there'll cavity discomfort. Cultures are process and will help determine the overall course of antibiotic therapy. 07/18/2018 the patient is feeling poorly still. Continues to have great difficulties attempting to ingest food or protein supplements. Apparently he is to be taken later from the tracheostomy in the near future and apparently this is trying to occur during this stay. PICC line is requested Dietitian to help with TPN orders The patient is in need of nutritional improvement to allow him to heal the current illnesses and he does not want a PEG tube. Continue antibiotic and antiviral and antifungal therapy for now cultures in process. 07/20/2018 TPN is started and patient started to feel better already. No fevers, neutropenia improving and ANC is now a 1.0. Oral cavity started feeling better. He is attempted to take in some yogurt and was quite surprised with how awful it tasted due to the taste bud changes that he has at this time. We'll continue try to sip on supplements, ice and the. Clear liquids given hopefully he'll be able to tolerate this well. Current Visit: Yes Status: Acute Code(s): D70.9 - NEUTROPENIA, UNSPECIFIED; R50.81 - FEVER PRESENTING WITH CONDITIONS CLASSIFIED ELSEWHERE SNOMED Code(s): 777209499 (2) Tongue cancer Current Visit: Yes Status: Acute Code(s): C02.9 - MALIGNANT NEOPLASM OF TONGUE, UNSPECIFIED SNOMED Code(s): 947661783
[2018-07-20 23:48] LABS: Glucose,Whole Blood 112 mg/dL (75-99)
[2018-07-21] MEDS: CEFEPIME 2 GM in SODIUM CHLORIDE 0.9% 100 ML IVPB SCH ×4 (00:40→23:18)
[2018-07-21] MEDS: INSULIN ASPART (NovoLOG) 100 UNIT/ML VIAL SQ SCH ×5 (00:40→23:24)
[2018-07-21] MEDS: HYDROmorphone 0.5 MG/0.5 ML SYRINGE IVP PRN ×6 (01:26→23:15)
[2018-07-21] MEDS: SODIUM CHLORIDE 0.9% 1,000 ML IV SCH ×3 (01:27→18:14)
[2018-07-21] MEDS: VANCOMYCIN 1,500 MG in SODIUM CHLORIDE 0.9% 250 ML IVPB SCH ×3 (02:06→18:14)
[2018-07-21] MEDS ORDERED: [UNRECOGNIZED DRUG - OTHER] IV ONE (03:00)
[2018-07-21] MEDS ORDERED: AMINO ACID IV ONE (03:00)
[2018-07-21] MEDS ORDERED: PARENTERAL ELECTROLYTES IV ONE (03:00)
[2018-07-21 05:59] LABS: Glucose,Whole Blood 161 mg/dL (75-99)
[2018-07-21 09:42] LABS: Anisocytosis Moderate; HCT 20.4 % (39.0-53.0); HGB 7.2 gm/dL (13.0-17.5); Hyperchromasia Slight; MCH 31.5 pg (25.0-35.0); MCHC 35.1 g/dL (31.0-37.0); MCV 89.6 fL (80.0-100.0); Macrocytosis Slight; Mean Platelet Volume 8.4; Platelet Count 72 k/uL (150-450); Poikilocytosis Moderate; RBC 2.28 m/uL (4.30-5.90); RDW 22.3 % (11.5-15.5); WBC 3.2 k/uL (3.8-10.6)
[2018-07-21] MEDS: valACYclovir 500 MG TAB PO SCH ×2 (09:43→20:58)
[2018-07-21] MEDS: MAG HYDROX/AL HYDROX/SIMETH 30 ML, LIDOCAINE VISCOUS 30 ML, diphenhydrAMINE ELIXIR 75 M... PO SCH ×15 (09:44→21:05)
[2018-07-21] MEDS: NYSTATIN 100,000 UNIT/GM POWD 15 GM TOPICAL SCH ×3 (09:45→21:04)
[2018-07-21] MEDS: LORATADINE 10 MG TAB PO SCH (09:46)
[2018-07-21 09:48] LABS: Ionized Calcium 4.6 mg/dL (4.5-5.3)
[2018-07-21 09:58] LABS: ALT 17 U/L (21-72); AST 12 U/L (17-59); Albumin 2.5 g/dL (3.5-5.0); Alkaline Phosphatase 58 U/L (38-126); Anion Gap 5 mmol/L; Blood Urea Nitrogen 7 mg/dL (9-20); Calcium 7.5 mg/dL (8.4-10.2); Carbon Dioxide 30 mmol/L (22-30); Chloride 105 mmol/L (98-107); Glucose 127 mg/dL (74-99); Magnesium 1.7 mg/dL (1.6-2.3); Phosphorus 1.5 mg/dL (2.5-4.5); Potassium 3.2 mmol/L (3.5-5.1); Sodium 140 mmol/L (137-145); Total Bilirubin 0.8 mg/dL (0.2-1.3); Total Protein 4.5 g/dL (6.3-8.2)
[2018-07-21] MEDS: MAGNESIUM SULFATE-D5W PMX 1 GM in DEXTROSE/WATER 1 100ML.BAG IVPB SCH ×3 (11:13→15:05)
[2018-07-21 11:34] LABS: Band Neutrophils % 25 %; Monocytes # (M) 0.22 k/uL (0-1.0); Neutrophils % (M) 65 %; Nucleated Red Blood Cells 0 /100 WBC (0-0); Total Cells Counted 100
[2018-07-21 11:35] LABS: Dohle Bodies Present; Toxic Granulation Present
[2018-07-21 11:47] LABS: Glucose,Whole Blood 144 mg/dL (75-99)
[2018-07-21] MEDS: POTASSIUM PHOSPHATE 10 MMOL in SODIUM CHLORIDE 0.9% 100 ML IV SCH ×2 (11:53→13:49)
[2018-07-21 12:07] VITALS: BMI 29.9
[2018-07-21] MEDS ORDERED: HYDROcodone/APAP 15 ML SOLUTION PO PRN (12:10)
--- NOTE | 2018-07-21 15:43 | P.PN ---
Subjective Progress Note Date: 07/21/18 This is a pleasant 47-year-old gentleman patient of Dr. 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 Stoll. He didn't have any tongue resection for this. however he underwent cisplatin started May 25, and has completed chemotherapy. He goes every , his last chemotherapy was 06/28/2018. He currently is on radiation treatment, with Dr. Zamora, last treatment was 06/11/2018. His initial tongue cancer was also noted to be positive in the lymph node based on CT, he comes in now with fever for one day 100.2 in er, cough of one day, the patient has a trach collar that is not blistered and does not have any new rashes, no recent foreign travels, no sick contacts at home. he denies any GI complaints he was last seen in the office 08/02/2017, diagnosed to have BPH without lower tract symptomatology, hypertension, hyperlipidemia, patient is not on any home medications. He does have mucus production trace trach collar and some cough, clear white sputum. Emergency room laboratory showed WBC count of 1.0, platelet count of 59, creatinine of 0.84, normal liver function tests, albumin and protein is a little bit on the lower side, lactic acid off 0.7, urinalysis normal except for ketones, and dehydration. influenza test was negative chest x-ray shows no acute pulmonary disease no active infiltrates, patient was admitted for neutropenic fever with WBC count of 1.0, no absolute neutrophil count for review, consult was made with Dr. Stoll, and Dr. Quezada for pancytopenia with neutropenic fever, main source unknown, most likely respiratory tract, we're going to obtain sputum cultures from the aspirate to deep suctioning, he started on vancomycin and cefepime. Inspection of the skin fails to reveal any rashes or open sores including the neck collar 07/18: Patient has been seen by Dr. Quezada and started on fluconazole IV and Valtrex. He is to continue on cefepime and vancomycin. Oncology has started [place], Xario. Repeat lab work reveals WBC 1.1, hemoglobin 7.1, platelet count 71. Creatinine 0.69, CO2 21, calcium 8.1, magnesium 1.5. Patient has been started on TPN. He is on clear liquid diet and will be advanced to full liquid diet. He is complaining of rash of the lower abdomen that is a little itchy. He has used in the groin. Patient is refused to take cool solution. He states that Dr. Kothari will be removing his trach. Temperature maximum 100.0, heart rate 90s to 108, blood pressure 122/66, pulse ox 98% on room air. 07/19: The patient continues to have difficulty with swallowing with sore mouth and throat. Rash is about the same from yesterday and states it's a little itchy. Patient is to have a PICC line placed for TPN. We will add in a consult for Dr. Kothari for removal of trach. No medication changes made today. Patient's been afebrile, heart rate 97, blood pressure 1 2/64, pulse ox 97% on room air. Repeat lab work reveals WBC 1.2, hemoglobin 7.2, platelet count 73, creatinine 0.61. Electrolytes within normal limits. 07/20: Patient was seen by Dr. Kothari and he performed a flexible laryngeal scope be finding the base the tongue grossly unremarkable although moderate mucositis in the hypopharynx and larynx with normal vocal cord mobility. Patent airway. Patient has been decannulated and keep pressure over the tracheostomy site with coughing or talking and change dressings daily until healed. A PICC line was placed yesterday. Patient is on IV fluids with multivitamin. He is currently eating less than 25%. Patient remains afebrile, heart rate in the 90s, blood pressure 125/68 and pulse ox 100% on room air. Repeat lab work reveals WBC of 1.4, hemoglobin 6.5, platelet count 75, potassium 3.3. Patient states that he is hungry and would like to eat. It still hurts when he swallowing but he is trying to eat more each day. He was up to shower. No diarrhea. Oncology has ordered for 1 unit of packed RBCs. Anticipate he will be ready for discharge over the weekend. 07/21: The patient was started on TPN. He has been afebrile, heart rate in the 80s, blood pressure 119/73, pulse ox 97% on room air. Repeat lab work reveals a white count of 3.2, hemoglobin 7.2, platelet count 72. Potassium is 3.2, BUN 7 creatinine 0.55. Blood sugars running between 112 and 161. Phosphorus 1.5. The patient has been taking Dilaudid every 3 hours for pain control. We will start [place] elixir to transition over to oral for discharge planning for tomorrow. Oncology may wish to continue TPN at home. Review of Systems Constitutional: Reports anorexia, Reports chills, Reports fever, Reports lethargy, Reports poor appetite, Reports weight loss Ears, nose, mouth and throat: Reports odynophagia, Reports sore throat, reports mouth pain Cardiovascular: Denies dyspnea on exertion, Denies edema, Denies irregular heart beat, Denies leg edema, Denies syncope Respiratory: Reports cough, Denies congestion, Denies cough with sputum, Denies dyspnea, Denies excessive sputum, Denies hemoptysis, Denies home oxygen, Denies wheezing Gastrointestinal: Denies abdominal pain, Denies diarrhea, Denies nausea, Denies vomiting. Denies loss of appetite. Genitourinary: Denies dysuria, Denies urinary retention Musculoskeletal: Denies frequent falls, Denies gait dysfunction Integumentary: Denies darkening of skin, reports rash, Denies wounds Neurological: Denies aphasia, Denies change in mentation, Denies change in speech, Denies confusion, Denies gait dysfunction, Denies seizures Psychiatric: Denies anxiety, Denies depression Objective - Vital Signs Vital signs: Vital Signs Temp 98.0 F 07/21/18 05:00 Pulse 90 07/21/18 05:00 Resp 16 07/21/18 05:00 BP 119/73 07/21/18 05:00 Pulse Ox 97 07/21/18 05:00 Intake & Output 07/20/18 07/21/18 07/21/18 18:59 06:59 18:59 Intake Total 1350 2249 Balance 1350 2249 Weight 94.5 kg Intake: Intake, IV Titration 1040 2149 Amount Cefepime 2 gm In Sodium 100 Chloride 0.9% 100 ml @ 200 mls/hr IVPB Q8HR [facility] Rx#:[id number] Fat Emulsion 20% 250 ml 189 In Empty Bag 1 bag @ 21 mls/hr IV DAILY@1600 [facility] Rx#:[id number] Magnesium Sulfate-D5w Pmx 100 100 1 gm In Dextrose/Water 1 100ml.bag @ 100 mls/hr IVPB Q1H [facility] Rx#: [id number] Mvi, Adult No.4 with Vit 240 810 K 10 ml Trace (Conc-1Ml/ Dose) 1 ml In Amino Acid 5%-D15w+Lytes*E* 1,000 ml @ 90 mls/hr IV .BY [facility] Rx#: [id number] Potassium Phosphate 10 200 mmol In Sodium Chloride 0 .9% 100 ml @ 50 mls/hr IV Q2H [facility] Rx#:[id number] Sodium Chloride 0.9% 1, 450 500 000 ml @ 100 mls/hr IV . Q10H [facility] Rx#:[id number] Vancomycin 1,500 mg In 250 250 Sodium Chloride 0.9% 250 ml @ 125 mls/hr IVPB Q8H [facility] Rx#:[id number] Oral 100 Blood Product 310 Rc Irr As1 Unit 310 [id number] Other: Voiding Method Toilet # Voids 1 - Exam General appearance: average body habitus, cooperative, patient is resting comfortably in bed. Patient's mother is at bedside. - EENT Eyes: anicteric sclerae, EOMI, PERRLA, dentition normal, normal appearance ENT: hearing grossly normal, normal oropharynx - Neck Neck: normal ROM - Respiratory Respiratory: bilateral: CTA, negative: diminished, dullness, rales - Cardiovascular Rhythm: regular Heart sounds: normal: S1, S2 Abnormal Heart Sounds: no systolic murmur, no diastolic murmur, no rub, no S3 Gallop, no S4 Gallop, no click, no other - Gastrointestinal General gastrointestinal: normal bowel sounds, soft - Integumentary rubor noted neck line where trach collar is located, trach site normal in location Rash is improving, less red to the lower abdomen. - Neurologic Neurologic: CNII-XII intact - Musculoskeletal Musculoskeletal: gait normal, generalized weakness, strength equal bilaterally - Psychiatric Psychiatric: A&O x's 3, appropriate affect, intact judgment & insight - Labs CBC & Chem 7: 07/21/18 09:17 07/21/18 09:17 Labs: Abnormal Lab Results - Last 24 Hours (Table) 07/20/18 07/20/18 07/20/18 Range/Units 08:26 11:15 12:08 WBC (3.8-10.6) k/uL RBC (4.30-5.90) m/uL Hgb (13.0-17.5) gm/dL Hct (39.0-53.0) % RDW (11.5-15.5) % Plt Count (150-450) k/uL Neutrophils # (Manual) 1.00 L (1.3-7.7) k/uL Lymphocytes # (Manual) 0.08 L (1.0-4.8) k/uL Nucleated RBCs 1 H (0-0) /100 WBC Potassium (3.5-5.1) mmol/L BUN (9-20) mg/dL Creatinine (0.66-1.25) mg/dL Glucose (74-99) mg/dL POC Glucose (mg/dL) 129 H (75-99) mg/dL Calcium (8.4-10.2) mg/dL Phosphorus (2.5-4.5) mg/dL AST (17-59) U/L ALT (21-72) U/L Total Protein (6.3-8.2) g/dL Albumin (3.5-5.0) g/dL Crossmatch See Detail 07/20/18 07/20/18 07/21/18 Range/Units 17:36 23:47 05:58 WBC (3.8-10.6) k/uL RBC (4.30-5.90) m/uL Hgb (13.0-17.5) gm/dL Hct (39.0-53.0) % RDW (11.5-15.5) % Plt Count (150-450) k/uL Neutrophils # (Manual) (1.3-7.7) k/uL Lymphocytes # (Manual) (1.0-4.8) k/uL Nucleated RBCs (0-0) /100 WBC Potassium (3.5-5.1) mmol/L BUN (9-20) mg/dL Creatinine (0.66-1.25) mg/dL Glucose (74-99) mg/dL POC Glucose (mg/dL) 161 H 112 H 161 H (75-99) mg/dL Calcium (8.4-10.2) mg/dL Phosphorus (2.5-4.5) mg/dL AST (17-59) U/L ALT (21-72) U/L Total Protein (6.3-8.2) g/dL Albumin (3.5-5.0) g/dL Crossmatch 07/21/18 07/21/18 Range/Units 09:17 09:17 WBC 3.2 L (3.8-10.6) k/uL RBC 2.28 L (4.30-5.90) m/uL Hgb 7.2 L (13.0-17.5) gm/dL Hct 20.4 L (39.0-53.0) % RDW 22.3 H (11.5-15.5) % Plt Count 72 L (150-450) k/uL Neutrophils # (Manual) (1.3-7.7) k/uL Lymphocytes # (Manual) (1.0-4.8) k/uL Nucleated RBCs (0-0) /100 WBC Potassium 3.2 L (3.5-5.1) mmol/L BUN 7 L (9-20) mg/dL Creatinine 0.55 L (0.66-1.25) mg/dL Glucose 127 H (74-99) mg/dL POC Glucose (mg/dL) (75-99) mg/dL Calcium 7.5 L (8.4-10.2) mg/dL Phosphorus 1.5 L (2.5-4.5) mg/dL AST 12 L (17-59) U/L ALT 17 L (21-72) U/L Total Protein 4.5 L (6.3-8.2) g/dL Albumin 2.5 L (3.5-5.0) g/dL Crossmatch Microbiology - Last 24 Hours (Table) 07/16/18 16:00 Blood Culture - Preliminary Blood No Growth after 96 hours Assessment and Plan Plan: 1. Neutropenic fever, known history of squamous cell carcinoma of the base of the tongue, recently completed chemotherapy as of 07/06/2018, patient is on vancomycin IV and cefepime, consult were made with Dr. Stoll and Dr. Quezada. Cultures in progress 2. Squamous cell carcinoma at the base of the tongue, chemotherapy with cisplatin, completed 07/06/2018, started 05/25/2018, Dr. Stoll consult appreciated. Consult added for Dr. Tilley decannulated and performed laryngeoscopy. 3. Pancytopenia. Oncology consult appreciated. Patient has been started on Xario. Continue to monitor CBC. 2. BPH without lower tract symptomatology 4. Dehydration with mild azotemia with ketonuria related to diminished oral intake 5. Hyperlipidemia not on any medication prior to admission 6. Hypertension, currently normotensive without medications, continue to monitor 7. GI prophylaxis Pepcid 8. DVT prophylaxis with Lovenox 40 mg every daily, monitor for platelets, this needs to be discontinued if there should count is under 50, no evidence of bleeding, moderate risk 9. Severe protein calorie malnutrition with significant weight loss. Dietitian following, TPN. PICC line to be placed to continue TPN. 10. Severe mucocytitis secondary to chemotherapy and radiation. Continue cool solution patient will use, antiviral and antifungal ordered by Dr. Quezada. Doxepin added by oncology. 11. Acute anemia secondary to cancer and chemotherapy. Status post transfusion 1 unit of packed RBCs. Discharge plan: Return home most likely over the weekend Impression and plan of care have been directed as dictated by the signing physician. Shellie Asif nurse practitioner acting as scribe for signing meggan villar.
[2018-07-21] MEDS: 1: MVI, ADULT NO.4 WITH VIT K 10 ML, TRACE (CONC-1ML/DOSE) 1 ML in AMINO ACID 5%-D15W+LY IV SCH ×3 (16:08)
[2018-07-21] MEDS: FAT EMULSION 20% 250 ML in EMPTY BAG 1 BAG IV SCH (16:09)
[2018-07-21 17:00] LABS: Glucose,Whole Blood 137 mg/dL (75-99)
[2018-07-21] MEDS: FLUCONAZOLE IN NACL,ISO-OSM 200 MG in SALINE 1 100ML.BAG IVPB SCH (17:10)
--- NOTE | 2018-07-21 17:32 | P.PN ---
Subjective Progress Note Date: 07/21/18 Principal diagnosis: head and neck ca - Mucocytitis Started on TPN. Remains afebrile, CBC is starting to recover Check Magnesium with low Potassium is 3.2, Hylacet PO Liquid [place] for pain trial and if tolerates ok with discharge on TPN Objective - Vital Signs Vital signs: Vital Signs Temp 98 F 07/21/18 12:02 Pulse 103 H 07/21/18 12:02 Resp 17 07/21/18 12:02 BP 107/70 07/21/18 12:02 Pulse Ox 97 07/21/18 12:02 Intake & Output 07/20/18 07/21/18 07/21/18 18:59 06:59 18:59 Intake Total 1350 2249 1820 Balance 1350 2249 1820 Weight 94.5 kg 94.5 kg Intake: Intake, IV Titration 1040 2149 1820 Amount Cefepime 2 gm In Sodium 100 200 Chloride 0.9% 100 ml @ 200 mls/hr IVPB Q8HR ANA MARIA Rx#:[id number] Fat Emulsion 20% 250 ml 189 In Empty Bag 1 bag @ 21 mls/hr IV DAILY@1600 ANA MARIA Rx#:[id number] Magnesium Sulfate-D5w Pmx 100 100 1 gm In Dextrose/Water 1 100ml.bag @ 100 mls/hr IVPB Q1H ANA MARIA Rx#: [id number] Magnesium Sulfate-D5w Pmx 200 1 gm In Dextrose/Water 1 100ml.bag @ 100 mls/hr IVPB Q1H ANA MARIA Rx#: [id number] Mvi, Adult No.4 with Vit 240 810 K 10 ml Trace (Conc-1Ml/ Dose) 1 ml In Amino Acid 5%-D15w+Lytes*E* 1,000 ml @ 90 mls/hr IV .BY DURATION ANA MARIA Rx#: [id number] Mvi, Adult No.4 with Vit 720 K 10 ml Trace (Conc-1Ml/ Dose) 1 ml In Amino Acid 5%-D15w+Lytes*E* 1,000 ml @ 90 mls/hr IV .BY DURATION ANA MARIA Rx#: [id number] Potassium Phosphate 10 200 mmol In Sodium Chloride 0 .9% 100 ml @ 50 mls/hr IV Q2H ANA MARIA Rx#:[id number] Potassium Phosphate 10 200 mmol In Sodium Chloride 0 .9% 100 ml @ 50 mls/hr IV Q2H ANA MARIA Rx#:[id number] Sodium Chloride 0.9% 1, 450 500 500 000 ml @ 100 mls/hr IV . Q10H ANA MARIA Rx#:[id number] Vancomycin 1,500 mg In 250 250 Sodium Chloride 0.9% 250 ml @ 125 mls/hr IVPB Q8H ANA MARIA Rx#:[id number] Oral 100 Blood Product 310 Rc Irr As1 Unit 310 [id number] Other: Voiding Method Toilet Toilet # Voids 1 - Exam Gen: Alert and oriented, NAD Head NC, NT Mouth: Mucocytitis, canker sores, erythema, component thrush, edema. Neck: Erythema skin outside from radiation, no peeling or open areas to outside area. Trach Lung: CTA [place] No increased effort Heart: RRR, S1s2 Abdomen: Soft, ND, NT Extremities: No edema, Pedal Pulses palpable - Labs CBC & Chem 7: 07/21/18 09:17 07/21/18 09:17 Labs: Abnormal Lab Results - Last 24 Hours (Table) 07/20/18 07/20/18 07/21/18 Range/Units 17:36 23:47 05:58 WBC (3.8-10.6) k/uL RBC (4.30-5.90) m/uL Hgb (13.0-17.5) gm/dL Hct (39.0-53.0) % RDW (11.5-15.5) % Plt Count (150-450) k/uL Lymphocytes # (Manual) (1.0-4.8) k/uL Potassium (3.5-5.1) mmol/L BUN (9-20) mg/dL Creatinine (0.66-1.25) mg/dL Glucose (74-99) mg/dL POC Glucose (mg/dL) 161 H 112 H 161 H (75-99) mg/dL Calcium (8.4-10.2) mg/dL Phosphorus (2.5-4.5) mg/dL AST (17-59) U/L ALT (21-72) U/L Total Protein (6.3-8.2) g/dL Albumin (3.5-5.0) g/dL 07/21/18 07/21/18 07/21/18 Range/Units 09:17 09:17 11:46 WBC 3.2 L (3.8-10.6) k/uL RBC 2.28 L (4.30-5.90) m/uL Hgb 7.2 L (13.0-17.5) gm/dL Hct 20.4 L (39.0-53.0) % RDW 22.3 H (11.5-15.5) % Plt Count 72 L (150-450) k/uL Lymphocytes # (Manual) 0.10 L (1.0-4.8) k/uL Potassium 3.2 L (3.5-5.1) mmol/L BUN 7 L (9-20) mg/dL Creatinine 0.55 L (0.66-1.25) mg/dL Glucose 127 H (74-99) mg/dL POC Glucose (mg/dL) 144 H (75-99) mg/dL Calcium 7.5 L (8.4-10.2) mg/dL Phosphorus 1.5 L (2.5-4.5) mg/dL AST 12 L (17-59) U/L ALT 17 L (21-72) U/L Total Protein 4.5 L (6.3-8.2) g/dL Albumin 2.5 L (3.5-5.0) g/dL 07/21/18 Range/Units 16:58 WBC (3.8-10.6) k/uL RBC (4.30-5.90) m/uL Hgb (13.0-17.5) gm/dL Hct (39.0-53.0) % RDW (11.5-15.5) % Plt Count (150-450) k/uL Lymphocytes # (Manual) (1.0-4.8) k/uL Potassium (3.5-5.1) mmol/L BUN (9-20) mg/dL Creatinine (0.66-1.25) mg/dL Glucose (74-99) mg/dL POC Glucose (mg/dL) 137 H (75-99) mg/dL Calcium (8.4-10.2) mg/dL Phosphorus (2.5-4.5) mg/dL AST (17-59) U/L ALT (21-72) U/L Total Protein (6.3-8.2) g/dL Albumin (3.5-5.0) g/dL Microbiology - Last 24 Hours (Table) 07/16/18 16:00 Blood Culture - Preliminary Blood No Growth after 96 hours Assessment and Plan Plan: Assessment and Recommendations: Severe Mucocytitis related to treatment from Chemotherapy and Radiation - Failed Oral Rinses and PO Dex as outpatient although did not adhere to them as directed for taste - Antiviral and Antifungals per Infectious disease - PO Doxepin, crush and mix in water rinse and spit/swallow at hs Dysphagia: - Secondary to above Pancytopenia Secondary to treatment with chemo and radiation - Zarxio 480 sub cut daily for immune support - Monitor daily CBC with Differential - Supportive Transfusions if needed - Antibiotics per Dr. Quezada, ID - Transfuse platlets less than 10, or hemoglobin less than 7 - Hemoglobin 6.5 - Transfuse one unit of PRBC today Squamous Cell Carcinoma of Head and Neck - Status Post 6 weeks of weekly Cisplatin concurrent radiation Moderate Protein Calorie Malnutrition - Secondary to Dysphageia - Add MVI to IV Bag - Pot Room Tapper following. - ok for TPN (per Dr. Stoll) for short term and if ok ID, with prolonged neutropenia and hospitalization, should improve dysphagia when neutropenia resolves - Blood cultures are negative at his time and he remains afebrile Hypokalemia/HypoMagnesia: - Monitor daily and Supp PRN Plan: - Continue aggressive supportive care - Allow count recovery and healing of oral pharynx and consumption of po intake - Re-education to patient - TPN initiation, ? home for short term with TPN? - POtassium Supp today - Transfusion one unit PRB07/20/18 - Trial Hylacet for pain managment and if controlled and no s/s infection ok for discharge on TPN Keara Richards AOP Physician Attest: I have completed the full history and physical and agree with above dictation by Keara Richards, I have developed the completed impression and plan, above dictated as a scribe.
[2018-07-21 17:38] LABS: Protein, Total 4.2 g/dL (6.2-8.2)
[2018-07-21] MEDS: FILGRASTIM-SNDZ 480 MCG/0.8 ML SYRINGE SQ SCH (21:09)
[2018-07-21 23:28] LABS: Glucose,Whole Blood 140 mg/dL (75-99)
[2018-07-22] MEDS: VANCOMYCIN 1,500 MG in SODIUM CHLORIDE 0.9% 250 ML IVPB SCH ×3 (02:30→19:22)
[2018-07-22] MEDS: HYDROmorphone 0.5 MG/0.5 ML SYRINGE IVP PRN ×7 (02:33→21:16)
[2018-07-22] MEDS: 1: MVI, ADULT NO.4 WITH VIT K 10 ML, TRACE (CONC-1ML/DOSE) 1 ML in AMINO ACID 5%-D15W+LY IV SCH ×6 (03:38→15:16)
[2018-07-22] MEDS: INSULIN ASPART (NovoLOG) 100 UNIT/ML VIAL SQ SCH ×3 (06:06→16:51)
[2018-07-22 06:11] LABS: Glucose,Whole Blood 142 mg/dL (75-99)
[2018-07-22 07:41] LABS: Anion Gap 3 mmol/L; Blood Urea Nitrogen 7 mg/dL (9-20); Calcium 7.5 mg/dL (8.4-10.2); Carbon Dioxide 30 mmol/L (22-30); Chloride 107 mmol/L (98-107); Glucose 127 mg/dL (74-99); Magnesium 1.7 mg/dL (1.6-2.3); Potassium 3.3 mmol/L (3.5-5.1); Sodium 140 mmol/L (137-145)
[2018-07-22 08:12] LABS: Anisocytosis Moderate; HCT 20.9 % (39.0-53.0); MCHC 32.8 g/dL (31.0-37.0); MCV 91.3 fL (80.0-100.0); Macrocytosis Slight; Mean Platelet Volume 7.7; Platelet Count 69 k/uL (150-450); Poikilocytosis Slight; RBC 2.29 m/uL (4.30-5.90); WBC 4.6 k/uL (3.8-10.6)
[2018-07-22 08:18] LABS: HGB 6.9 gm/dL (13.0-17.5)
[2018-07-22] MEDS: CEFEPIME 2 GM in SODIUM CHLORIDE 0.9% 100 ML IVPB SCH ×2 (08:35→16:42)
[2018-07-22] MEDS: SODIUM CHLORIDE 0.9% 1,000 ML IV SCH ×3 (08:36→16:57)
[2018-07-22] MEDS: NYSTATIN 100,000 UNIT/GM POWD 15 GM TOPICAL SCH ×3 (08:42→21:21)
[2018-07-22] MEDS: valACYclovir 500 MG TAB PO SCH ×2 (08:42→21:28)
[2018-07-22] MEDS: LORATADINE 10 MG TAB PO SCH (08:42)
[2018-07-22] MEDS: MAG HYDROX/AL HYDROX/SIMETH 30 ML, LIDOCAINE VISCOUS 30 ML, diphenhydrAMINE ELIXIR 75 M... PO SCH ×15 (08:43→21:21)
[2018-07-22 11:12] LABS: Band Neutrophils % 4 %; Basophils # (M) 0.05 k/uL (0-0.2); Eosinophils # (M) 0.09 k/uL (0-0.7); Lymphocytes # (M) 0.14 k/uL (1.0-4.8); Metamyelocytes # (M) 0.05 k/uL (0); Metamyelocytes % 1 %; Monocytes # (M) 0.32 k/uL (0-1.0); Myelocytes # (M) 0.05 k/uL (0); Myelocytes % 1 %; Neutrophils % (M) 83 %; Nucleated Red Blood Cells 1 /100 WBC (0-0); Total Cells Counted 200
[2018-07-22 11:13] LABS: Toxic Granulation Present
[2018-07-22 11:14] LABS: Polychromasia Present
[2018-07-22 11:34] LABS: Glucose,Whole Blood 114 mg/dL (75-99)
--- NOTE | 2018-07-22 12:32 | P.PN ---
Subjective Progress Note Date: 07/22/18 This is a pleasant 47-year-old gentleman patient of Dr. 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 Stoll. He didn't have any tongue resection for this. however he underwent cisplatin started May 25, and has completed chemotherapy. He goes every , his last chemotherapy was 06/28/2018. He currently is on radiation treatment, with Dr. Zamora, last treatment was 06/11/2018. His initial tongue cancer was also noted to be positive in the lymph node based on CT, he comes in now with fever for one day 100.2 in er, cough of one day, the patient has a trach collar that is not blistered and does not have any new rashes, no recent foreign travels, no sick contacts at home. he denies any GI complaints he was last seen in the office 08/02/2017, diagnosed to have BPH without lower tract symptomatology, hypertension, hyperlipidemia, patient is not on any home medications. He does have mucus production trace trach collar and some cough, clear white sputum. Emergency room laboratory showed WBC count of 1.0, platelet count of 59, creatinine of 0.84, normal liver function tests, albumin and protein is a little bit on the lower side, lactic acid off 0.7, urinalysis normal except for ketones, and dehydration. influenza test was negative chest x-ray shows no acute pulmonary disease no active infiltrates, patient was admitted for neutropenic fever with WBC count of 1.0, no absolute neutrophil count for review, consult was made with Dr. Stoll, and Dr. Quezada for pancytopenia with neutropenic fever, main source unknown, most likely respiratory tract, we're going to obtain sputum cultures from the aspirate to deep suctioning, he started on vancomycin and cefepime. Inspection of the skin fails to reveal any rashes or open sores including the neck collar 07/18: Patient has been seen by Dr. Quezada and started on fluconazole IV and Valtrex. He is to continue on cefepime and vancomycin. Oncology has started [place], Xario. Repeat lab work reveals WBC 1.1, hemoglobin 7.1, platelet count 71. Creatinine 0.69, CO2 21, calcium 8.1, magnesium 1.5. Patient has been started on TPN. He is on clear liquid diet and will be advanced to full liquid diet. He is complaining of rash of the lower abdomen that is a little itchy. He has used in the groin. Patient is refused to take cool solution. He states that Dr. Kothari will be removing his trach. Temperature maximum 100.0, heart rate 90s to 108, blood pressure 122/66, pulse ox 98% on room air. 07/19: The patient continues to have difficulty with swallowing with sore mouth and throat. Rash is about the same from yesterday and states it's a little itchy. Patient is to have a PICC line placed for TPN. We will add in a consult for Dr. Kothari for removal of trach. No medication changes made today. Patient's been afebrile, heart rate 97, blood pressure 1 2/64, pulse ox 97% on room air. Repeat lab work reveals WBC 1.2, hemoglobin 7.2, platelet count 73, creatinine 0.61. Electrolytes within normal limits. 07/20: Patient was seen by Dr. Kothari and he performed a flexible laryngeal scope be finding the base the tongue grossly unremarkable although moderate mucositis in the hypopharynx and larynx with normal vocal cord mobility. Patent airway. Patient has been decannulated and keep pressure over the tracheostomy site with coughing or talking and change dressings daily until healed. A PICC line was placed yesterday. Patient is on IV fluids with multivitamin. He is currently eating less than 25%. Patient remains afebrile, heart rate in the 90s, blood pressure 125/68 and pulse ox 100% on room air. Repeat lab work reveals WBC of 1.4, hemoglobin 6.5, platelet count 75, potassium 3.3. Patient states that he is hungry and would like to eat. It still hurts when he swallowing but he is trying to eat more each day. He was up to shower. No diarrhea. Oncology has ordered for 1 unit of packed RBCs. Anticipate he will be ready for discharge over the weekend. 07/21: The patient was started on TPN. He has been afebrile, heart rate in the 80s, blood pressure 119/73, pulse ox 97% on room air. Repeat lab work reveals a white count of 3.2, hemoglobin 7.2, platelet count 72. Potassium is 3.2, BUN 7 creatinine 0.55. Blood sugars running between 112 and 161. Phosphorus 1.5. The patient has been taking Dilaudid every 3 hours for pain control. We will start [place] elixir to transition over to oral for discharge planning for tomorrow. Oncology may wish to continue TPN at home. 07/22: Patient is stating he is doing well today. He is willing to try to advance diet. We will add a chopped diet. Patient does not want to go home on TPN. He continues to have sore throat and mouth but is isn't improving. He states he has been ambulating in the hallway. He is anxious to get home and start exercising including treadmill at home. He has been afebrile, heart rate running in the 80s to 100, blood pressure 106/69, pulse ox 97% on room air. WBC is 4.6, hemoglobin 6.9 and platelet count 69 area potassium is 3.3 which will be replaced with TPN. Creatinine 0.59. Blood sugars running between 114 and 142. Plan to continue TPN, advance diet and possible discharge by tomorrow. Review of Systems Constitutional: Reports anorexia, Reports chills, Reports fever, Reports lethargy, Reports poor appetite, Reports weight loss Ears, nose, mouth and throat: Reports odynophagia, Reports sore throat, reports mouth pain Cardiovascular: Denies dyspnea on exertion, Denies edema, Denies irregular heart beat, Denies leg edema, Denies syncope Respiratory: Reports cough, Denies congestion, Denies cough with sputum, Denies dyspnea, Denies excessive sputum, Denies hemoptysis, Denies home oxygen, Denies wheezing Gastrointestinal: Denies abdominal pain, Denies diarrhea, Denies nausea, Denies vomiting. Denies loss of appetite. Reports hunger. Genitourinary: Denies dysuria, Denies urinary retention Musculoskeletal: Denies frequent falls, Denies gait dysfunction Integumentary: Denies darkening of skin, reports rash, Denies wounds Neurological: Denies aphasia, Denies change in mentation, Denies change in speech, Denies confusion, Denies gait dysfunction, Denies seizures Psychiatric: Denies anxiety, Denies depression Objective - Vital Signs Vital signs: Vital Signs Temp 97.6 F 07/22/18 11:51 Pulse 103 H 07/22/18 11:51 Resp 15 07/22/18 11:51 BP 106/69 07/22/18 11:51 Pulse Ox 97 07/22/18 11:51 Intake & Output 07/21/18 07/22/18 07/22/18 18:59 06:59 18:59 Intake Total 1820 1851 Balance 1820 1851 Weight 94.5 kg 96.5 kg Intake: Intake, IV Titration 1820 1261 Amount Cefepime 2 gm In Sodium 200 Chloride 0.9% 100 ml @ 200 mls/hr IVPB Q8HR ANA MARIA Rx#:[id number] Magnesium Sulfate-D5w Pmx 200 1 gm In Dextrose/Water 1 100ml.bag @ 100 mls/hr IVPB Q1H ANA MARIA Rx#: [id number] Mvi, Adult No.4 with Vit 720 1011 K 10 ml Trace (Conc-1Ml/ Dose) 1 ml In Amino Acid 5%-D15w+Lytes*E* 1,000 ml @ 90 mls/hr IV .BY DURATION ANA MARIA Rx#: [id number] Potassium Phosphate 10 200 mmol In Sodium Chloride 0 .9% 100 ml @ 50 mls/hr IV Q2H ANA MARIA Rx#:[id number] Sodium Chloride 0.9% 1, 500 000 ml @ 100 mls/hr IV . Q10H ANA MARIA Rx#:[id number] Vancomycin 1,500 mg In 250 Sodium Chloride 0.9% 250 ml @ 125 mls/hr IVPB Q8H ANA MARIA Rx#:[id number] Oral 590 Other: Voiding Method Toilet Toilet Toilet # Voids 2 - Exam General appearance: average body habitus, cooperative, patient is resting comfortably in bed. Patient is noted to be more talkative today. - EENT Eyes: anicteric sclerae, EOMI, PERRLA, dentition normal, normal appearance ENT: hearing grossly normal, normal oropharynx - Neck Neck: normal ROM - Respiratory Respiratory: bilateral: CTA, negative: diminished, dullness, rales - Cardiovascular Rhythm: regular Heart sounds: normal: S1, S2 Abnormal Heart Sounds: no systolic murmur, no diastolic murmur, no rub, no S3 Gallop, no S4 Gallop, no click, no other - Gastrointestinal General gastrointestinal: normal bowel sounds, soft - Integumentary rubor noted neck line where trach collar is located, trach site normal in location Rash is improving, less red to the lower abdomen. - Neurologic Neurologic: CNII-XII intact - Musculoskeletal Musculoskeletal: gait normal, generalized weakness, strength equal bilaterally - Psychiatric Psychiatric: A&O x's 3, appropriate affect, intact judgment & insight - Labs CBC & Chem 7: 07/22/18 06:55 07/22/18 06:55 Labs: Abnormal Lab Results - Last 24 Hours (Table) 07/20/18 07/21/18 07/21/18 Range/Units 11:15 09:17 16:58 RBC (4.30-5.90) m/uL Hgb (13.0-17.5) gm/dL Hct (39.0-53.0) % RDW (11.5-15.5) % Plt Count (150-450) k/uL Lymphocytes # (Manual) (1.0-4.8) k/uL Metamyelocytes # (Man) (0) k/uL Myelocytes # (Manual) (0) k/uL Nucleated RBCs (0-0) /100 WBC Potassium (3.5-5.1) mmol/L BUN (9-20) mg/dL Creatinine (0.66-1.25) mg/dL Glucose (74-99) mg/dL POC Glucose (mg/dL) 137 H (75-99) mg/dL Calcium (8.4-10.2) mg/dL Phosphorus (2.5-4.5) mg/dL Total Protein (PEP) 4.2 L (6.2-8.2) g/dL Crossmatch See Detail 07/21/18 07/22/18 07/22/18 Range/Units 23:21 06:03 06:55 RBC (4.30-5.90) m/uL Hgb (13.0-17.5) gm/dL Hct (39.0-53.0) % RDW (11.5-15.5) % Plt Count (150-450) k/uL Lymphocytes # (Manual) (1.0-4.8) k/uL Metamyelocytes # (Man) (0) k/uL Myelocytes # (Manual) (0) k/uL Nucleated RBCs (0-0) /100 WBC Potassium 3.3 L (3.5-5.1) mmol/L BUN 7 L (9-20) mg/dL Creatinine 0.59 L (0.66-1.25) mg/dL Glucose 127 H (74-99) mg/dL POC Glucose (mg/dL) 140 H 142 H (75-99) mg/dL Calcium 7.5 L (8.4-10.2) mg/dL Phosphorus 2.0 L (2.5-4.5) mg/dL Total Protein (PEP) (6.2-8.2) g/dL Crossmatch 07/22/18 07/22/18 Range/Units 06:55 11:32 RBC 2.29 L (4.30-5.90) m/uL Hgb 6.9 L* (13.0-17.5) gm/dL Hct 20.9 L (39.0-53.0) % RDW 21.0 H (11.5-15.5) % Plt Count 69 L (150-450) k/uL Lymphocytes # (Manual) 0.14 L (1.0-4.8) k/uL Metamyelocytes # (Man) 0.05 H (0) k/uL Myelocytes # (Manual) 0.05 H (0) k/uL Nucleated RBCs 1 H (0-0) /100 WBC Potassium (3.5-5.1) mmol/L BUN (9-20) mg/dL Creatinine (0.66-1.25) mg/dL Glucose (74-99) mg/dL POC Glucose (mg/dL) 114 H (75-99) mg/dL Calcium (8.4-10.2) mg/dL Phosphorus (2.5-4.5) mg/dL Total Protein (PEP) (6.2-8.2) g/dL Crossmatch Microbiology - Last 24 Hours (Table) 07/16/18 16:00 Blood Culture - Preliminary Blood No Growth after 120 hours Assessment and Plan Plan: 1. Neutropenic fever, known history of squamous cell carcinoma of the base of the tongue, recently completed chemotherapy as of 07/06/2018, patient is on vancomycin IV and cefepime, consult were made with Dr. Stoll and Dr. Quezada. Cultures in progress 2. Squamous cell carcinoma at the base of the tongue, chemotherapy with cisplatin, completed 07/06/2018, started 05/25/2018, Dr. Stoll consult appreciated. Consult added for Dr. Tilley decannulated and performed lar yngeoscopy. Advance diet to chopped. 3. Pancytopenia. Oncology consult appreciated. Patient has been started on Xario. Continue to monitor CBC. 2. BPH without lower tract symptomatology 4. Dehydration with mild azotemia with ketonuria related to diminished oral intake 5. Hyperlipidemia not on any medication prior to admission 6. Hypertension, currently normotensive without medications, continue to monitor 7. GI prophylaxis Pepcid 8. DVT prophylaxis with Lovenox 40 mg every daily, monitor for platelets, this needs to be discontinued if there should count is under 50, no evidence of bleeding, moderate risk 9. Severe protein calorie malnutrition with significant weight loss. Dietitian following, TPN. PICC line to be placed to continue TPN. 10. Severe mucocytitis secondary to chemotherapy and radiation. Continue cool solution patient will use, antiviral and antifungal ordered by Dr. Quezada. Doxepin added by oncology. 11. Acute anemia secondary to cancer and chemotherapy. Status post transfusion 1 unit of packed RBCs. Patient may require second unit of packed RBCs. Discharge plan: Return home on Tuesday. Impression and plan of care have been directed as dictated by the signing physician. Shellie Asif nurse practitioner acting as scribe for signing phys ician.
[2018-07-22] MEDS: POTASSIUM PHOSPHATE 10 MMOL in SODIUM CHLORIDE 0.9% 100 ML IV SCH ×2 (12:38→14:28)
[2018-07-22] MEDS: MAGNESIUM SULFATE-D5W PMX 1 GM in DEXTROSE/WATER 1 100ML.BAG IVPB SCH ×2 (16:47→18:13)
[2018-07-22 16:52] LABS: Glucose,Whole Blood 125 mg/dL (75-99)
[2018-07-22] MEDS: FLUCONAZOLE IN NACL,ISO-OSM 200 MG in SALINE 1 100ML.BAG IVPB SCH (18:14)
[2018-07-22] MEDS: FAT EMULSION 20% 250 ML in EMPTY BAG 1 BAG IV SCH (19:17)
[2018-07-22] MEDS: FILGRASTIM-SNDZ 480 MCG/0.8 ML SYRINGE SQ SCH (21:17)
[2018-07-23] MEDS: HYDROmorphone 0.5 MG/0.5 ML SYRINGE IVP PRN ×4 (00:09→09:13)
[2018-07-23] MEDS: CEFEPIME 2 GM in SODIUM CHLORIDE 0.9% 100 ML IVPB SCH ×2 (00:09→09:12)
[2018-07-23] MEDS: INSULIN ASPART (NovoLOG) 100 UNIT/ML VIAL SQ SCH ×3 (00:09→11:36)
[2018-07-23 00:19] LABS: Glucose,Whole Blood 139 mg/dL (75-99)
[2018-07-23] MEDS: VANCOMYCIN 1,500 MG in SODIUM CHLORIDE 0.9% 250 ML IVPB SCH ×2 (02:12→10:44)
[2018-07-23] MEDS: 1: MVI, ADULT NO.4 WITH VIT K 10 ML, TRACE (CONC-1ML/DOSE) 1 ML in AMINO ACID 5%-D15W+LY IV SCH ×3 (02:12)
[2018-07-23] MEDS: SODIUM CHLORIDE 0.9% 1,000 ML IV SCH (03:30)
[2018-07-23 05:38] LABS: Glucose,Whole Blood 138 mg/dL (75-99)
[2018-07-23 05:43] VITALS: BP 111/70; PULSE 63; RESP 17; TEMP 97.9
[2018-07-23 06:58] LABS: Anisocytosis Moderate; HCT 21.9 % (39.0-53.0); HGB 7.5 gm/dL (13.0-17.5); MCH 30.7 pg (25.0-35.0); MCHC 34.4 g/dL (31.0-37.0); MCV 89.1 fL (80.0-100.0); Macrocytosis Slight; Mean Platelet Volume 7.4; Poikilocytosis Slight; RBC 2.46 m/uL (4.30-5.90); RDW 21.3 % (11.5-15.5)
[2018-07-23 07:11] LABS: Platelet Count 63 k/uL (150-450)
[2018-07-23 07:15] LABS: ALT 22 U/L (21-72); AST 15 U/L (17-59); Albumin 2.5 g/dL (3.5-5.0); Alkaline Phosphatase 58 U/L (38-126); Anion Gap 4 mmol/L; Blood Urea Nitrogen 9 mg/dL (9-20); Calcium 7.6 mg/dL (8.4-10.2); Carbon Dioxide 30 mmol/L (22-30); Chloride 106 mmol/L (98-107); Glucose 112 mg/dL (74-99); Magnesium 1.7 mg/dL (1.6-2.3); Phosphorus 2.4 mg/dL (2.5-4.5); Potassium 3.4 mmol/L (3.5-5.1); Sodium 140 mmol/L (137-145); Total Bilirubin 0.6 mg/dL (0.2-1.3); Total Protein 4.5 g/dL (6.3-8.2)
[2018-07-23] MEDS: valACYclovir 500 MG TAB PO SCH (08:39)
[2018-07-23] MEDS: LORATADINE 10 MG TAB PO SCH (08:39)
[2018-07-23] MEDS: MAG HYDROX/AL HYDROX/SIMETH 30 ML, LIDOCAINE VISCOUS 30 ML, diphenhydrAMINE ELIXIR 75 M... PO SCH ×5 (08:39)
[2018-07-23] MEDS: NYSTATIN 100,000 UNIT/GM POWD 15 GM TOPICAL SCH (08:40)
[2018-07-23 09:20] LABS: Band Neutrophils % 8 %; Eosinophils # (M) 0.06 k/uL (0-0.7); Lymphocytes # (M) 0.34 k/uL (1.0-4.8); Metamyelocytes # (M) 0.06 k/uL (0); Metamyelocytes % 1 %; Myelocytes # (M) 0.06 k/uL (0); Myelocytes % 1 %; Neutrophils % (M) 77 %; Nucleated Red Blood Cells 2 /100 WBC (0-0); Total Cells Counted 200
[2018-07-23 09:48] LABS: Monocytes # (M) 0.45 k/uL (0-1.0); Polychromasia Present; WBC 5.6 k/uL (3.8-10.6)
[2018-07-23] MEDS ORDERED: MAGNESIUM SULFATE-D5W PMX 1 GM in DEXTROSE/WATER 1 100ML.BAG IVPB SCH ×2 (10:15→12:00)
[2018-07-23 10:59] LABS: Glucose,Whole Blood 136 mg/dL (75-99)
--- NOTE | 2018-07-23 11:32 | P.DS ---
Providers Date of admission: 07/16/18 16:51 Expected date of discharge: 07/23/18 Attending physician: Bren Burris Consults: 07/16/18 16:51 Consult Physician Routine Consulting Provider: Viktor Stoll Consult Reason/Comments: Neutropenic fever Do you want consulting provider notified?: Already Contacted 07/17/18 11:28 Consult Physician Routine Consulting Provider: Kalyan Quezada Consult Reason/Comments: leukopenic fever Do you want consulting provider notified?: Yes 07/19/18 11:35 Consult Physician Routine Consulting Provider: Keenan Allred Consult Reason/Comments: trach removal Do you want consulting provider notified?: Yes Primary care physician: [facility] Course: This is a pleasant 47-year-old gentleman patient of Dr. 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 Stoll. He didn't have any tongue resection for this. however he underwent cisplatin started May 25, and has completed chemotherapy. He goes every , his last chemotherapy was 06/28/2018. He currently is on radiation treatment, with Dr. Zamora, last treatment was 06/11/2018. His initial tongue cancer was also noted to be positive in the lymph node based on CT, he comes in now with fever for one day 100.2 in er, cough of one day, the patient has a trach collar that is not blistered and does not have any new rashes, no recent foreign travels, no sick contacts at home. he denies any GI complaints he was last seen in the office 08/02/2017, diagnosed to have BPH without lower tract symptomatology, hypertension, hyperlipidemia, patient is not on any home medications. He does have mucus production trace trach collar and some cough, clear white sputum. Emergency room laboratory showed WBC count of 1.0, platelet count of 59, creatinine of 0.84, normal liver function tests, albumin and protein is a little bit on the lower side, lactic acid off 0.7, urinalysis normal except for ketones, and dehydration. influenza test was negative chest x-ray shows no acute pulmonary disease no active infiltrates, patient was admitted for neutropenic fever with WBC count of 1.0, no absolute neutrophil count for review, consult was made with Dr. Stoll, and Dr. Quezada for pancytopenia with neutropenic fever, main source unknown, most likely respiratory tract, we're go ing to obtain sputum cultures from the aspirate to deep suctioning, he started on vancomycin and cefepime. Inspection of the skin fails to reveal any rashes or open sores including the neck collar 07/18: Patient has been seen by Dr. Quezada and started on fluconazole IV and Valtrex. He is to continue on cefepime and vancomycin. Oncology has started S[place]quan, Xario. Repeat lab work reveals WBC 1.1, hemoglobin 7.1, platelet count 71. Creatinine 0.69, CO2 21, calcium 8.1, magnesium 1.5. Patient has been started on TPN. He is on clear liquid diet and will be advanced to full liquid diet. He is complaining of rash of the lower abdomen that is a little itchy. He has used in the groin. Patient is refused to take cool solution. He states that Dr. Kothari will be removing his trach. Temperature maximum 100.0, heart rate 90s to 108, blood pressure 122/66, pulse ox 98% on room air. 07/19: The patient continues to have difficulty with swallowing with sore mouth and throat. Rash is about the same from yesterday and states it's a little itchy. Patient is to have a PICC line placed for TPN. We will add in a consult for Dr. Kothari for removal of trach. No medication changes made today. Patient's been afebrile, heart rate 97, blood pressure 1 2/64, pulse ox 97% on room air. Repeat lab work reveals WBC 1.2, hemoglobin 7.2, platelet count 73, creatinine 0.61. Electrolytes within normal limits. 07/20: Patient was seen by Dr. Kothari and he performed a flexible laryngeal scope be finding the base the tongue grossly unremarkable although moderate mucositis in the hypopharynx and larynx with normal vocal cord mobility. Patent airway. Patient has been decannulated and keep pressure over the tracheostomy site with coughing or talking and change dressings daily until healed. A PICC line was placed yesterday. Patient is on IV fluids with multivitamin. He is currently eating less than 25%. Patient remains afebrile, heart rate in the 90s, blood pressure 125/68 and pulse ox 100% on room air. Repeat lab work reveals WBC of 1.4, hemoglobin 6.5, platelet count 75, potassium 3.3. Patient states that he is hungry and would like to eat. It still hurts when he swallo wing but he is trying to eat more each day. He was up to shower. No diarrhea. Oncology has ordered for 1 unit of packed RBCs. Anticipate he will be ready for discharge over the weekend. 07/21: The patient was started on TPN. He has been afebrile, heart rate in the 80s, blood pressure 119/73, pulse ox 97% on room air. Repeat lab work reveals a white count of 3.2, hemoglobin 7.2, platelet count 72. Potassium is 3.2, BUN 7 creatinine 0.55. Blood sugars running between 112 and 161. Phosphorus 1.5. The patient has been taking Dilaudid every 3 hours for pain control. We will start [place] elixir to transition over to oral for discharge planning for tomorrow. Oncology may wish to continue TPN at home. 07/22: Patient is stating he is doing well today. He is willing to try to advance diet. We will add a chopped diet. Patient does not want to go home on TPN. He continues to have sore throat and mouth but is isn't improving. He states he has been ambulating in the hallway. He is anxious to get home and start exercising including treadmill at home. He has been afebrile, heart rate running in the 80s to 100, blood pressure 106/69, pulse ox 97% on room air. WBC is 4.6, hemoglobin 6.9 and platelet count 69 area potassium is 3.3 which will be replaced with TPN. Creatinine 0.59. Blood sugars running between 114 and 142. Plan to continue TPN, advance diet and possible discharge by tomorrow. 07/23: Repeat lab work reveals white count 5.6, hemoglobin 7.5, platelet count 63. Potassium 3.6, creatinine 0.6, phosphorus 2.4. Patient ate 100% of his breakfast today. He is currently on chopped diet and tolerating this well with no nausea or vomiting. Patient did receive 1 unit of packed RBCs yesterday. Patient states he is willing to go home. He states he only wants Tylenol for pain but he has been using Dilaudid around the clock. We will provide a prescription for tramadol patient fill it if he needs to. Patient will be discharged home today in stable condition. Discharge diagnoses: 1. Neutropenic fever, known history of squamous cell carcinoma of the base of the tongue 2. Squamous cell carcinoma at the base of the tongue, chemotherapy with cisplatin, completed 07/06/2018, started 05/25/2018 3. Pancytopenia. 4. BPH without lower tract symptomatology 5. Dehydration with mild azotemia with ketonuria related to diminished oral intake, no acute kidney injury 6. Hyperlipidemia not on any medication 7. Hypertension, currently normotensive without medications 8. Severe protein calorie malnutrition with significant weight loss. 9. Severe mucocytitis secondary to chemotherapy and radiation. 10. Acute anemia secondary to cancer and chemotherapy. Discharge plan: Return home on Tuesday. Impression and plan of care have been directed as dictated by the signing physician. Shellie Asif nurse practitioner acting as scribe for signing physician. Patient Condition at Discharge: Good Plan - Discharge Summary New Discharge Prescriptions: New Cefixime 200 mg PO BID #100 susp.recon traMADol HCL [Ultram] 50 mg PO Q4HR PRN 3 Days #18 tab PRN Reason: Pain Discharge Medication List Cefixime 200 mg PO BID #100 susp.recon 07/21/18 [Rx] traMADol HCL [Ultram] 50 mg PO Q4HR PRN 3 Days #18 tab 07/23/18 [Rx] Follow up Appointment(s)/Referral(s): Kalyan Kim MD [Primary Care Provider] - 1 Week Viktor Stoll MD [STAFF PHYSICIAN] - 1 Week Patient Instructions/Handouts: Cefixime (By mouth), Dehydration (DC), Neutropenia (DC) Discharge Disposition: HOME SELF-CARE
[2018-07-23] MEDS ORDERED: POTASSIUM PHOSPHATE 10 MMOL in SODIUM CHLORIDE 0.9% 100 ML IV SCH (12:00)
[2018-07-23 16:26] LABS: Glucose,Whole Blood 109 mg/dL (75-99)
== END 2018-07-23 17:36 | disposition home or self-care (01) | DRG 808 ==
LOC: EC 14:07 → 3NMEDONC 16:51
PROVIDERS: ADMIT Family Medicine; ATTEND Family Medicine
PROC: 0CJS8ZZ Inspection of Larynx, Via Natural or Artificial Opening Endoscopic (ICD-10-PCS; 2018-07-19)
PROC: 0BP1XFZ Removal of Tracheostomy Device from Trachea, External Approach (ICD-10-PCS; 2018-07-19)
PROC: 02HV33Z Insertion of Infusion Device into Superior Vena Cava, Percutaneous Approach (ICD-10-PCS; principal; 2018-07-19 10:00)
DX: D61.810 Antineoplastic chemotherapy induced pancytopenia (principal); E43 Unspecified severe protein-calorie malnutrition; T45.1X5A Adverse effect of antineoplastic and immunosuppressive drugs, initial encounter; C01 Malignant neoplasm of base of tongue; D63.0 Anemia in neoplastic disease; Z68.31 Body mass index [BMI] 31.0-31.9, adult; E78.5 Hyperlipidemia, unspecified; E86.0 Dehydration; I10 Essential (primary) hypertension; K12.30 Oral mucositis (ulcerative), unspecified; N40.0 Benign prostatic hyperplasia without lower urinary tract symptoms; R50.81 Fever presenting with conditions classified elsewhere; Y84.2 Radiological procedure and radiotherapy as the cause of abnormal reaction of the patient, or of later complication, without mention of misadventure at the time of the procedure; Z80.3 Family history of malignant neoplasm of breast; Z80.8 Family history of malignant neoplasm of other organs or systems; Z87.891 Personal history of nicotine dependence; Z92.3 Personal history of irradiation; Z93.0 Tracheostomy status; Z92.21 Personal history of antineoplastic chemotherapy; R13.10 Dysphagia, unspecified
CPT/HCPCS: 36415; 36573; 71046; 80048; 80053; 80202; 81003; 82330; 83605; 83735; 83883; 84100; 84165; 84478; 85025; 85610; 86334; 86850; 86900; 86901; 86920; 87040; 87070; 87086; 87205; 87502; 94760; 96361; 96365; 99285

== ENCOUNTER → 2018-08-19 | Outpatient (CLI) | payer BC ==
--- NOTE | 2018-08-22 10:37 | PE ---
Nuclear medicine PET/CT history: Malignant neoplasm of base of tongue, subsequent Patient received 11.7 mCi F-18 FDG intravenously in delayed scanning was performed from the skull bas e to the mid thighs. Small [id number] images obtained through the neck and skull base. Correlation to prior nuclear medicine PET/CT 05/13/2018 Neck and CHEST: Mucosal irregularity noted to the right of midline towards the base of the tongue royce r the vallecula shows hypermetabolic uptake, SUV 6.1. There is an associated lymph node at the same l evel of the submandibular location which shows uptake, SUV 4.5, additional nonenlarged node deep to t he sternocleidomastoid muscle at this level shows SUV of only 2.4. Deep to the sternocleidomastoid mu scle at the level of the hyoid bone and no is present which is not enlarged but shows SUV of 2.7. Pre viously identified large soft tissue mass in the base of the tongue has improved markedly in the inte rval. There is no evident lung mass. No pleural or pericardial effusion. No mediastinal, axillary, or hilar adenopathy. No suspicious hypermetabolic uptake within the chest. ABDOMEN: Hypodense foci within the right lobe of liver inferiorly are again noted and likely represen t cysts, no associated hypermetabolic uptake. No retroperitoneal adenopathy or ascites. Osseous structures show some probable increase in marrow activity due to stimulation. IMPRESSION: Treatment response as described, the tumor burden is improved.
== END | disposition home or self-care (01) ==
LOC: RADPETMAIN 08:04
PROVIDERS: ATTEND Radiology Radiation Oncology
DX: C01 Malignant neoplasm of base of tongue (principal); C77.0 Secondary and unspecified malignant neoplasm of lymph nodes of head, face and neck; F17.290 Nicotine dependence, other tobacco product, uncomplicated
CPT/HCPCS: 78815; A9552

== ENCOUNTER → 2018-09-21 | Outpatient (CLI) | payer BC ==
[2018-09-21 09:19] LABS: African American GFR (CKD) >90 (>60 ml/min/1.73 sqM); Anion Gap 5 mmol/L; Blood Urea Nitrogen 22 mg/dL (9-20); Calcium 9.2 mg/dL (8.4-10.2); Carbon Dioxide 30 mmol/L (22-30); Chloride 106 mmol/L (98-107); Glucose 94 mg/dL (74-99); Potassium 4.6 mmol/L (3.5-5.1); Sodium 141 mmol/L (137-145)
--- NOTE | 2018-09-21 09:54 | CT ---
EXAMINATION TYPE: CT soft tissue neck w con DATE OF EXAM: 09/21/2018 HISTORY: base of tongue CA diagnosed April 2018 completed chemotherapy and radiation treatment Apri l 3. COMPARISON: CT neck April 05, 2018. Most recent PET CT August 19, 2018 and older PET/CT. CT DLP: 868 mGycm. Automated Exposure Control for Dose Reduction was Utilized. TECHNIQUE: CT scan of the neck is performed with IV Contrast, patient injected with 100 mL of Isovue 300, axial images are obtained, coronal and sagittal reformatted images are reviewed. FINDINGS: Airway: Nasopharyngeal and oropharyngeal airways are patent. Epiglottis felt within normal limits sag ittal image 49 without recurrent vallecular mass. Inferior to this area epiglottic folds appear symme tric without obvious recurrent mass or neoplasm. Informed sinuses are fairly symmetric coronal image 53. Scar tissue from tracheostomy noted inferior to this. Thyroid gland within normal limits. Lung apices redemonstrated mild emphysematous change. Parotid/submandibular glands: No gross abnormality seen. Carotid/Vascular Structures: No significant new stenosis or plaque at carotid bulb level. Hypoplastic or occluded left vertebral artery is redemonstrated. Osseous Structures: No significant abnormality. Other: Right neck adenopathy is felt stable from in size from most recent PET/CT submandibular level measuring 1.4 x 1.2 cm axial image 33. A few adjacent smaller lymph nodes are felt stable. No new def initive greater than 1 cm adenopathy. IMPRESSION: Overall stable findings from most recent PET/CT, no new suspicious recurrent mass or enla rging adenopathy.
== END | disposition home or self-care (01) ==
LOC: RADCTMAIN 08:35
PROVIDERS: ATTEND Otolaryngology
DX: C01 Malignant neoplasm of base of tongue (principal); C77.0 Secondary and unspecified malignant neoplasm of lymph nodes of head, face and neck; F17.290 Nicotine dependence, other tobacco product, uncomplicated; Z92.21 Personal history of antineoplastic chemotherapy
CPT/HCPCS: 80048; 70491; 36415; Q9967

== ENCOUNTER → 2018-12-02 | Outpatient (CLI) | payer BC ==
--- NOTE | 2018-12-04 09:45 | PE ---
EXAMINATION TYPE: PET CT fusion skull to thigh DATE OF EXAM: 12/02/2018 COMPARISON: CT soft tissue neck 09/21/2018 Prior PET/CT: 08/19/2018 HISTORY: Malignant neoplasm base of tongue TECHNIQUE: Following the intravenous administration of 11.94 mCi of F-18 FDG, whole body images are performed from the skull base to the midthigh. Images are reviewed on the computer in the coronal, a xial, and sagittal planes. Reconstructed rotating images are created on independent workstation and reviewed on the computer. A localization and attenuation correction CT is performed in conjunction with the PET scan. DLP: 57.19+ 445.44 mGycm SCAN: Subsequent Blood glucose: 91 mg/dL Average Mediastinum SUV: 1.43 Average Liver SUV: 2.11 FINDINGS: NECK: There is mild uptake within the right piriform sinus measuring approximately 4.36, PET image 5 1. This area remains present on the head and neck dedicated head imaging, image 51, with an SUV value of 4.7. THORAX: No abnormal uptake ABDOMEN: No abnormal uptake PELVIS: No abnormal uptake OSSEOUS STRUCTURES: No abnormal uptake LOCALIZATION CT: No suspicious abnormality COMPARISON: Subtle lymphadenopathy on the previous examination has diminished in intensity. IMPRESSION: 1. There may be some residual abnormal uptake in the region of the right piriform sinus. 2. Previous lymphadenopathy and mild uptake at the base of tongue has largely resolved over the inter compa.
== END | disposition home or self-care (01) ==
LOC: RADPETMAIN 07:56
PROVIDERS: ATTEND Otolaryngology
DX: C01 Malignant neoplasm of base of tongue (principal); C77.0 Secondary and unspecified malignant neoplasm of lymph nodes of head, face and neck; F17.290 Nicotine dependence, other tobacco product, uncomplicated; Z92.21 Personal history of antineoplastic chemotherapy
CPT/HCPCS: 78815; A9552

== ENCOUNTER → 2019-03-07 | Outpatient (CLI) | payer BC ==
--- NOTE | 2019-03-07 09:42 | CT ---
EXAMINATION TYPE: CT soft tissue neck w con DATE OF EXAM: 03/07/2019 COMPARISON: 09/21/2018, PET/CT 12/02/2018 HISTORY: Malignant neoplasm of base of tongue CT DLP: 404.9 mGycm CONTRAST: Patient injected with 100 mL of Isovue 300. TECHNIQUE: Axial images at 3 mm thick sections. Reconstructed images in the coronal plane and sagitt al plane are reviewed. FINDINGS: Limited CT sections are obtained the lung apices. The lung apices appear clear. CT neck: The torus tubarius and fossa of Rosenmuller are normal. Water [employer]airer spaces are normal. Para nasal sinuses and mastoid air cells are clear. Parotid glands appear normal and symmetrical. Submandibular glands, are normal. Parapharyngeal spac es are normal. No suspicious adenopathy is evident. Previous right jugulodigastric lymph node curren tly measures 0.9 cm which is not enlarged by CT criteria. The hypopharynx appears within normal limits. Vocal cord level appear symmetrical. Thyroid as visualized is normal. Osseous structures are normal. Left septal deviation is noted. IMPRESSIONS: 1. No suspicious changes to suggest metastatic or recurrent tongue cancer.
== END | disposition home or self-care (01) ==
LOC: RADCTMAIN 06:51
PROVIDERS: ATTEND Otolaryngology
DX: C01 Malignant neoplasm of base of tongue (principal); C77.0 Secondary and unspecified malignant neoplasm of lymph nodes of head, face and neck; F17.290 Nicotine dependence, other tobacco product, uncomplicated; Z92.21 Personal history of antineoplastic chemotherapy
CPT/HCPCS: 70491; Q9967

== ENCOUNTER → 2019-05-28 | Outpatient (CLI) | payer BC ==
--- NOTE | 2019-05-28 12:20 | CT ---
EXAMINATION TYPE: CT neck chest w con DATE OF EXAM: 05/28/2019 COMPARISON: 03/07/2019 HISTORY: Malignant neoplasm of head, face and neck (under tongue) CT DLP: 1365 mGycm CONTRAST: CT scan of the neck is performed with IV Contrast, patient injected with 100 mL of Isovue 300. Contrast enhanced CT of the neck was performed from the skull base through the lung apices. AIRWAY: The supraglottic, glottic, and subglottic portions of the airway appear patent and free of mass. SALIVARY GLANDS: The submandibular and parotid glands are free of mass or inflammatory process. THYROID GLAND: No nodules or masses seen. LYMPH NODES: No adenopathy seen greater than 1cm. LUNG APICES: No nodule or mass is seen. OTHER: Vascular structures are patent. No significant degenerative change of the cervical spine. N o abscess seen. IMPRESSION: 1. No evidence for recurrent or residual tumor at this time. No adenopathy greater than 1 cm. EXAMINATION TYPE: CT neck chest w con DATE OF EXAM: 05/28/2019 COMPARISON: None HISTORY: Malignant neoplasm of head, face and neck (under tongue) CT DLP: 1365 mGycm Automated exposure control for dose reduction was used. CONTRAST: CT scan of the chest is performed with IV Contrast, patient injected with 100 mL of Isovue 300. FINDINGS: LUNGS: The lungs are grossly clear, there is no concerning parenchymal mass or nodule identified. T here is no pleural effusion or pneumothorax seen. The tracheobronchial tree is patent. MEDIASTINUM: There are no greater than 1 cm hilar or mediastinal lymph nodes. No pericardial effusi on is seen. Thoracic aorta is of normal caliber. The heart is not enlarged. UPPER ABDOMEN: Multiple simple hepatic cysts are noted. OTHER: No additional significant abnormality is seen. IMPRESSION: 1. No evidence metastatic disease to the chest.
== END | disposition home or self-care (01) ==
LOC: RADCTMAIN 09:53
PROVIDERS: ATTEND Internal Medicine Hematology & Oncology
DX: Z03.89 Encounter for observation for other suspected diseases and conditions ruled out (principal); C76.0 Malignant neoplasm of head, face and neck
CPT/HCPCS: 70491; 71260; Q9967

== ENCOUNTER → 2019-10-10 | Outpatient (CLI) | payer BC ==
--- NOTE | 2019-10-10 12:12 | CT ---
EXAMINATION TYPE: CT neck chest w con DATE OF EXAM: 10/10/2019 9:30 AM COMPARISON: Prior CT neck chest 05/28/2019 HISTORY: Head and neck cancer CT DLP: 1072.8 mGycm Automated exposure control for dose reduction was used. CONTRAST: CT scan of the neck is performed following without and with IV Contrast, patient injected with 100 mL of Isovue 300. Axial images are obtained, coronal and sagittal reformatted images are reviewed. FINDINGS: NECK: Airway: No gross abnormality seen. Parotid/submandibular glands: No gross abnormality seen. Carotid/Vascular Structures: Abnormal enhancement. Osseous Structures: Unremarkable Other: No cervical or supraclavicular adenopathy. Multiple low-attenuation foci within the liver like ly represent cysts as on prior exam. CHEST: There is no evident lung mass. No pleural pericardial effusion. No evident endobronchial lesio n. No mediastinal, axillary, or hilar adenopathy. No lytic or blastic lesion evident. IMPRESSION: Stable exam. No evident recurrence.
== END | disposition home or self-care (01) ==
LOC: RADCTMAIN 08:50
PROVIDERS: ATTEND Internal Medicine Hematology & Oncology
DX: C76.0 Malignant neoplasm of head, face and neck (principal)
CPT/HCPCS: 70491; 71260; Q9967

== ENCOUNTER → 2020-02-15 | Outpatient (CLI) | payer BC ==
--- NOTE | 2020-02-18 01:22 | CT ---
EXAMINATION TYPE: CT neck chest w con DATE OF EXAM: 02/15/2020 10:41 AM COMPARISON: CT neck and chest 10/10/2019 HISTORY: Head and neck cancer (tongue cancer) CT DLP: 1216 mGycm Automated exposure control for dose reduction was used. CONTRAST: CT scan of the neck and chest is performed following with IV Contrast, patient injected with 100 mL o f Isovue 300. Axial images are obtained, coronal and sagittal reformatted images are reviewed. FINDINGS: Airway: No gross abnormality seen. Parotid/submandibular glands: No gross abnormality seen. Carotid/Vascular Structures: Patent. Osseous Structures: No aggressive osseous destructive lesions. Other: No cervical lymphadenopathy. Chest: No evidence of lung masses suspicious pulmonary nodule. No pleural effusion or pneumothorax. N o pericardial effusion heart size normal. No axillary, mediastinal, or hilar lymphadenopathy. Redemon strated hepatic cyst and too small to characterize hypodense lesions of the liver. Normal adrenal gla nds. IMPRESSION: No evidence of recurrent tongue cancer or metastatic disease of the chest.
== END | disposition home or self-care (01) ==
LOC: RADCTMAIN 09:47
PROVIDERS: ATTEND Internal Medicine Hematology & Oncology
DX: C76.0 Malignant neoplasm of head, face and neck (principal)
CPT/HCPCS: 70491; 71260; Q9967

== ENCOUNTER → 2020-06-13 | Outpatient (CLI) | payer BC ==
--- NOTE | 2020-06-13 13:30 | CT ---
EXAMINATION TYPE: CT neck chest w con DATE OF EXAM: 06/13/2020 COMPARISON: Prior neck and chest CTs February 15, 2020 and older studies. HISTORY: History of head and neck cancer, originally diagnosed April 2018 CT DLP: 1546 mGycm. Automated Exposure Control for Dose Reduction was Utilized. TECHNIQUE: CT scan of the neck and thorax are performed following with IV Contrast, patient injected with 100 mL of Isovue 300. FINDINGS: Neck: Airway: No recurrent epiglottic mass filling the vallecula. Airway remains patent. Parotid/submandibular glands: Stable mild symmetric submandibular gland atrophy. Carotid/Vascular Structures: No significant abnormality. Osseous Structures: No significant findings. Other: No recurrent greater than 1 cm neck adenopathy with particular attention to the right neck at the area of original adenopathy. There is stable 7 x 5 mm lymph node axial image 35 anterior to carot id and jugular vessels. Surgical clips anterior to thyroid likely from prior tracheostomy redemonstrated. Chest: LUNGS: Mild underlying emphysematous change redemonstrated. No new nodules or masses. Lungs remain cl ear. MEDIASTINUM: There are no new greater than 1 cm hilar or mediastinal lymph nodes. No cardiomegaly o r pericardial effusion is seen. OTHER: Stable scattered thin-walled subcentimeter cysts throughout the liver. IMPRESSION: No significant change from recent CT. No new suspicious masses or adenopathy to suggest a ctive neoplastic recurrence.
== END | disposition home or self-care (01) ==
LOC: RADCTMAIN 11:54
PROVIDERS: ATTEND Internal Medicine Hematology & Oncology
DX: Z85.89 Personal history of malignant neoplasm of other organs and systems (principal)
CPT/HCPCS: 70491; 71260; Q9967

== ENCOUNTER → 2020-12-19 | Outpatient (CLI) | payer BC ==
--- NOTE | 2020-12-19 11:38 | CT ---
EXAMINATION TYPE: CT neck chest w con DATE OF EXAM: 12/19/2020 COMPARISON: 06/13/2020, 02/15/2020 HISTORY: 50-year-old male C76.0, Z03.89, Head and Neck CA TECHNIQUE: Contiguous axial scanning of the soft tissues of the neck and chest performed with IV Cont rast, patient injected with 100 mL of Isovue 300. Coronal/sagittal reconstructions performed. CT DLP: 1375.4 mGycm Automated exposure control for dose reduction was used. FINDINGS: NECK: Visualized intracranial structures, orbits and globes, and mastoid air cells appear clear. Mild mucosal thickening left ethmoid air cells. Leftward nasal septal deviation. Nasal pharynx appears clear. Oropharynx appears clear. No evident mass within the oral cavity allowing for dental amalgam artifac t. Punctate calcification left palatine tonsil suggest sequela of prior infection. Epiglottis and prevertebral soft tissues are satisfactory. Glottic and subglottic structures appear clear. There appear to be some postoperative change along th e anterior trachea just below the cricoid cartilage suggesting prior tracheostomy. Thyroid gland satisfactory. The ventricular glands and atrophic. Parotid glands also mildly atrophic. Left submandibular space lymph node is now borderline enlarged at 10 x 7 mm versus 7 x 4 mm, previous ly. This may be reactive/post inflammatory. Otherwise, a few scattered small lymph nodes are present on both sides of the neck. CHEST: Heart normal size without pericardial effusion. Aorta normal caliber with conventional branching anatomy. No progressive lymphadenopathy by CT size criteria. Mild dependent atelectasis in the lungs. No consolidation or pleural effusion. No suspicious pulmonar y nodules or masses. Tiny hiatal hernia. Scattered cysts are redemonstrated within the liver, largest measuring 1.6 cm. Bones: No osseous destructive process. IMPRESSION: NECK: 1. A LEFT SUBMANDIBULAR SPACE LYMPH NODE IS SLIGHTLY LARGER AT 10 X 7 MM (VERSUS 7 X 4 MM, PREVIOUSLY ). THIS MAY BE REACTIVE/POST INFLAMMATORY. CLINICAL FOLLOW-UP RECOMMENDED. 2. PRIOR TRACHEOSTOMY CHANGES. 3. OTHERWISE, NO OTHER FINDINGS TO SUGGEST RECURRENT OR METASTATIC DISEASE IN THE NECK. CHEST: 4. NO EVIDENCE FOR METASTATIC DISEASE TO THE CHEST. 5. TINY HIATAL HERNIA.
== END | disposition home or self-care (01) ==
LOC: RADCTMAIN 08:49
PROVIDERS: ATTEND Internal Medicine Hematology & Oncology
DX: C76.0 Malignant neoplasm of head, face and neck (principal); R59.0 Localized enlarged lymph nodes; J98.11 Atelectasis
CPT/HCPCS: 70491; 71260; Q9967

== ENCOUNTER → 2021-03-20 | Outpatient (CLI) | payer BC ==
--- NOTE | 2021-03-20 09:57 | CT ---
EXAMINATION TYPE: CT soft tissue neck w con DATE OF EXAM: 03/20/2021 COMPARISON: 12/19/2020 HISTORY: head and neck cancer follow up CT DLP: 710 mGycm CONTRAST: CT scan of the neck is performed with IV Contrast, patient injected with 100 mL of Isovue 300. Contrast enhanced CT of the neck was performed from the skull base through the lung apices. AIRWAY: The supraglottic, glottic, and subglottic portions of the airway appear patent and free of mass. Postoperative changes again noted along the anterior portion of the trachea compatible with carmenza or tracheostomy. SALIVARY GLANDS: The submandibular and parotid glands are free of mass or inflammatory process. THYROID GLAND: No nodules or masses seen. LYMPH NODES: Left submandibular space lymph node is again noted and measures 6 mm versus 6.6 mm previ ously. No adenopathy greater than 1 cm is identified at this time. LUNG APICES: No nodule or mass is seen. OTHER: Vascular structures are patent. No significant degenerative change of the cervical spine. N o abscess seen. IMPRESSION: No evidence for recurrent or residual disease. Left submandibular space lymph node is slightly smalle r in size.
== END | disposition home or self-care (01) ==
LOC: RADCTMAIN 08:20
PROVIDERS: ATTEND Internal Medicine Hematology & Oncology
DX: Z08 Encounter for follow-up examination after completed treatment for malignant neoplasm (principal); Z85.89 Personal history of malignant neoplasm of other organs and systems
CPT/HCPCS: 70491; Q9967

== ENCOUNTER → 2021-06-23 | Outpatient (CLI) | payer BC ==
--- NOTE | 2021-06-23 10:10 | CT ---
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 Automated Exposure Control for Dose Reduction was Utilized. TECHNIQUE: CT scan of the neck and thorax are performed following with IV Contrast, patient injected with 100 mL of Isovue 300. FINDINGS: Neck: Airway: No recurrent epiglottic mass filling the vallecula. Airway remains patent. No new mucosal mas ses Parotid/submandibular glands: Mild to borderline submandibular gland atrophy greater on the right si de remains present. Carotid/Vascular Structures: Incidental hypoplastic or occluded distal left vertebral artery. Dominan t right vertebral artery fills the basilar artery. No significant change from prior studies. Osseous Structures: No significant findings. Other: No recurrent greater than 1 cm neck adenopathy with particular attention to the right neck at the area of original adenopathy. Stable subcentimeter lymph nodes bilaterally. Surgical clips anterior to thyroid likely from prior tracheostomy redemonstrated. Chest: LUNGS: Mild underlying emphysematous change is redemonstrated. No new greater than 5 mm nodules or ma sses. Lungs remain clear. MEDIASTINUM: There are no new greater than 1 cm hilar or mediastinal lymph nodes. No cardiomegaly o r pericardial effusion is seen. OTHER: Stable scattered thin-walled subcentimeter cysts throughout the liver. Small-sized hiatal timothy ia redemonstrated. IMPRESSION: No significant change from most recent CTs. No new suspicious masses or adenopathy to sug gest active neoplastic recurrence.
== END | disposition home or self-care (01) ==
LOC: RADCTMAIN 08:53
PROVIDERS: ATTEND Internal Medicine Hematology & Oncology
DX: C01 Malignant neoplasm of base of tongue (principal); C76.0 Malignant neoplasm of head, face and neck
CPT/HCPCS: 70491; 71260; Q9967

== ENCOUNTER → 2021-12-18 | Outpatient (CLI) | payer BC ==
--- NOTE | 2021-12-18 11:10 | CT ---
EXAMINATION TYPE: CT neck chest w con DATE OF EXAM: 12/18/2021 COMPARISON: 06/23/2021, 03/20/2021, 12/19/2020 HISTORY: 51-year-old male Follow up of neck and head cancer. Prior CT history stating base of tongue cancer originally diagnosed April 2018. TECHNIQUE: Contiguous axial scanning of the soft tissues of the neck and chest performed with IV Cont rast, patient injected with 100 mL of Isovue 300. Coronal/sagittal reconstructions performed. CT DLP: 1322.5 mGycm Automated exposure control for dose reduction was used. FINDINGS: NECK: Visualized intracranial structures, orbits and globes, mastoid air cells are clear. Prominent leftwar d nasal septal deviation. Mild to moderate mucosal thickening right ethmoid air cells. Nasopharynx and oropharynx are clear. Oral cavity limited by dental amalgam artifact Oropharynx is clear. Epiglottis and prevertebral soft tissues are satisfactory. The glottic and subglottic structures as well as the tracheal column appear clear. Similar postsurgic al change of prior tracheostomy. Parotid glands and thyroid gland are satisfactory. Submandibular glands atrophic, right more so than the left. Unchanged small submandibular space nodes. No new or increasing cervical lymphadenopathy. Bones: No osseous destructive process. CHEST: Heart normal size without pericardial effusion. Ectatic aortic root at 3.6 cm. Conventional arch vessel branching anatomy. No thoracic lymphadenopathy by CT size criteria. Some minimal dependent atelectasis is noted. No consolidation or pleural effusion. Tiny hiatal hernia. Redemonstrated scattered cysts within the liver measuring up to 1.9 cm. Bones: No osseous destructive process. IMPRESSION: Neck and chest: No change from recent CTs. No suspicious mass or adenopathy to suggest recurrent dise ase. Previous tracheostomy change. Tiny hiatal hernia.
== END | disposition home or self-care (01) ==
LOC: RADCTMAIN 09:45
PROVIDERS: ATTEND Internal Medicine Hematology & Oncology
DX: C76.0 Malignant neoplasm of head, face and neck (principal); K44.9 Diaphragmatic hernia without obstruction or gangrene
CPT/HCPCS: 70491; 71260; Q9967

== ENCOUNTER → 2023-07-22 | Outpatient (CLI) | payer BC ==
--- NOTE | 2023-07-25 13:31 | CT ---
EXAMINATION TYPE: CT neck chest w con CT DLP: 1546 mGycm, Automated exposure control for dose reduction was used. DATE OF EXAM: 07/22/2023 9:00 AM COMPARISON: Multiple CTs most recent 12/17/2022. CLINICAL INDICATION:Male, 52 years old with history of C76.0 MALIGNANT NEOPLASM OF HEAD, FACE AND NEC K;, F/U cancer head/neck TECHNIQUE: Standard enhanced CT of the neck and chest. Axial sections with coronal and sagittal refo rmats were obtained. Contrast used:100 mL of Isovue 300 with IV Contrast, (none if empty) Oral contrast used: (none if empty) FINDINGS: Brain: Visualized portions are grossly unremarkable. Orbits: Unremarkable Sinuses: Grossly unremarkable. Spaces of the neck: Clear and symmetric. Postsurgical changes to the neck with surgical clips present . Musculoskeletal: No acute osseous pathology. Lymph nodes: Multiple nonenlarged lymph nodes are seen along both anterior chains of the neck. No gr eater than 1.0 cm in short axis lymph nodes identified. Left submandibular lymph node mentioned on pr ior is not significantly changed and measures 5 mm in short axis. Vascular structures: Visualized major arteries are patent without evidence of aneurysm. Thoracic Inlet/airway: Airway is patent. The lung apices are clear. Soft tissues/Thyroid: Thyroid and remainder of the soft tissues are unremarkable. Other: none. LUNGS/ PLEURA: No evidence for focal consolidation, pneumothorax or pleural effusion. AIRWAY: Patent and unremarkable. HEART: Size within normal limits. MEDIASTINUM: No gross evidence of adenopathy. VASCULATURE: No aortic aneurysm. MUSCULOSKELETAL: No acute osseous abnormalities SOFT TISSUES/LYMPH NODES: No greater than 1.0 cm short axis lymph nodes identified. LOWER NECK: No significant findings. UPPER ABDOMEN: Scattered hepatic simple appearing cyst. IMPRESSION No evidence of mass or evidence for lymphadenopathy.
== END | disposition home or self-care (01) ==
LOC: RADCTMAIN 08:24
PROVIDERS: ATTEND Internal Medicine Hematology & Oncology
DX: C76.0 Malignant neoplasm of head, face and neck (principal)
CPT/HCPCS: 70491; 71260; Q9967